=== PATIENT | male | born 1955 | race Caucasian/White ===

== ENCOUNTER 2021-02-19 11:37 | Inpatient (IN) | payer OTHER ==
[2021-02-19 12:39] LABS: Absolute Lymphocytes (CBC) 0.6 K/uL (0.7-4.9); Basophils % 0.8 % (0-1.3); Hematocrit 41.2 % (39.6-49.0); Lymphocytes % 7.3 % (15.3-44.8); MPV 7.7 fL (7.6-11.3); RBC Red Blood Cell Count 4.13 M/uL (4.33-5.43)
[2021-02-19] MEDS ORDERED: ALBUTEROL 2.5 MG/3 ML NEB SOL ONE (12:46)
[2021-02-19] MEDS ORDERED: METHYLPREDNISOLONE 125 MG INJ ONE (12:46)
[2021-02-19] MEDS ORDERED: IPRATROPIUM BROM 0.5MG/2.5ML ONE (12:47)
[2021-02-19 12:48] LABS: Protime INR 3.16
--- NOTE | 2021-02-19 12:49 | RAD REPORT ---
EXAM DESCRIPTION: RAD - Chest Single View - 02/19/2021 12:20 pm CLINICAL HISTORY: SOB COMPARISON: No comparisons FINDINGS: Large right-sided pneumothorax. The left lung is clear. Suspected background of emphysema. The heart size is normal. Remote appearing right-sided rib fractures. Visualized upper abdomen is un remarkable. IMPRESSION: Large right-sided pneumothorax. Discussed with Dr. Hill by Dr. Quintanilla at 1245 on 02/19/21
[2021-02-19 12:55] LABS: ALT/SGPT 29 U/L (12-78); AST/SGOT 34 U/L (15-37); Albumin 3.5 g/dL (3.4-5.0); Alkaline Phosphatase 123 U/L (45-117); BUN Blood Urea Nitrogen 9 mg/dL (7-18); Bicarbonate 28 mmol/L (21-32); Bilirubin Direct 0.2 mg/dL (0-0.2); Bilirubin Total 0.7 mg/dL (0.2-1.0); Glucose Level 107 mg/dL (74-106); Magnesium 2.1 mg/dL (1.8-2.4); NT PRO-BNP 250 pg/mL (<125); Potassium 4.3 mmol/L (3.5-5.1); Protein, Total 7.6 g/dL (6.4-8.2); Sodium Level 141 mmol/L (136-145); Troponin (Emerg Dept Use Only) < 0.02 ng/mL (0.0-0.045)
[2021-02-19] MEDS ORDERED: LIDOCAINE 1% MPF 30 ML VIAL ONE (13:58)
[2021-02-19] MEDS ORDERED: VITAMIN K (ADULT) 10 MG/ML ONE (14:25)
--- NOTE | 2021-02-19 14:33 | RAD REPORT ---
EXAM DESCRIPTION: RAD - Chest Single View - 02/19/2021 2:20 pm CLINICAL HISTORY: POST CHEST TUBE COMPARISON: February 19 TECHNIQUE: AP portable chest image was obtained 02/19/2021 2:20 pm . FINDINGS: Chest tube has been placed on the right. Two in tears sixth inner costal space with the ti p directed to the medial lung base. Right hemithorax lung volume is low. The pneumothorax is not identifiable. A small or anterior pneumo thorax could be occult on a portable examination. No new or progressive lung parenchymal process. Cardiomediastinal silhouette is stable. Pulmonary vas culature within normal limits. No measurable pleural fluid collection. IMPRESSION: Placement of a right-sided chest tube as detailed. Pneumothorax is not identifiable. Remnant anterior pneumothorax can be occult on portable imaging.
--- NOTE | 2021-02-19 15:51 | CON ---
Date of Consultation: 02/19/2021 Reason For Service: Stat consult for a right pneumothorax. History Of Present Illness: This is the case of a 66-year-old patient, who comes to us with shortnes s of breath and found to have about 80% pneumothorax. Surgical consult was immediately called. See procedure note for chest tube placement. The patient does not remember any prior episode. He stoppe d smoking about 3 years ago. No trauma. No recent cough, any recent traveling out of the country. Past Medical History: DVTs. He has peripheral vascular disease. Past Surgical History: He mentioned about the bilateral femoral surgery and is not sure exactly why and also could be carotid. Medications: Reviewed include Coumadin for bilateral lower extremity DVTs. Family History: Noncontributory. Review of Systems: See H and P, otherwise ten points otherwise unremarkable. Physical Examination: General: The patient is awake, alert. HEENT: Pupils anicteric. Neck: Supple. Chest: Diminished breath sounds on the right side. Abdomen: Soft and depressible. No rebound. Extremities: Good capillary refill. No calf tenderness. Laboratory Data: Blood work reviewed including an INR of 3.6. Chest x-ray reviewed including a larg e pneumothorax on the right side. Assessment: A 66-year-old patient with symptomatic right pneumothorax. We have the issue of the inc reased INR, but at this time, this pneumothorax is emergent, so we have the assistance of the OR team who were kindly enough to provide us with personnel to do this in a controlled setting, but emergent . The benefits, alternatives, and risks of a chest tube placement were fully explained to the patien t, which include, but not limited to infection, bleeding, damage to adjacent structures, anesthesia c omplication, empyema, hemothorax, NE, and even . He also understands this may not relieve any s ymptoms. He might need more than one surgical intervention. He understood, signed a consent. Procedure: Placement of a chest tube. Under aseptic condition after time-out, using lidocaine visco us for local anesthetic, we proceeded to localize the area between the fourth and fifth intercostal s pace. An incision was made in that area under aseptic condition. Incision was carried down to inter costal space and just above the rib. We proceeded to enter the lung my finger make sure t here was no entrapment and then after that, placed a chest tube on the area. Excellent flow coming o ut. No blood. The chest tube was secured in place with a 3-0 nylon and Vaseline gauze around the ar ea and normal gauze with tape. At the end of the case, there is no air leak seen, excellent tunnelin g. The patient tolerated the procedure well. A chest x-ray was ordered stat showing an improvement of his lung. Plan: The patient will remain in the service of the primary doctor. Obtain a chest x-ray tomorrow m orning again. RAJ/ALEJANDRO Voice ID: [id number] Report ID: [id number]
[2021-02-19] MEDS ORDERED: NA CHLORIDE 0.9% 250 ML ONE (16:01)
[2021-02-19] MEDS ORDERED: ONDANSETRON 4 MG/2 ML VIAL IV PRN (16:05)
[2021-02-19] MEDS ORDERED: MORPHINE 4 MG/ML SYR IV PRN (16:05)
[2021-02-19] MEDS ORDERED: ACETAMINOPHEN 500 MG TAB PO PRN (16:05)
--- NOTE | 2021-02-19 16:12 | P.HP ---
Certification for Inpatient Patient admitted to: Observation With expected LOS: <2 Midnights Patient will require the following post-hospital care: None Practitioner: I am a practitioner with admitting privileges, knowledge of patient current condition, hospital course, and medical plan of care. Services: Services provided to patient in accordance with Admission requirements found in Title 42 Section 412.3 of the Code of Federal Regulations Patient History Date of Service: 02/19/21 Reason for admission: SPONTANEOUS PTX History of Present Illness: Patient is a 66-year-old gentleman who presents to the emergency room with right-sided spontaneous pneumothorax. Patient did not fall and did not have any coughing episodes. Patient started having pain and came to the emergency room and was found have a right-sided pneumothorax. Chest tube was placed in the emergency room. Patient's right leg is reinflated. Patient will be admitted for further evaluation. Allergies No Known Allergies Allergy (Unverified 02/19/21 20:52) Home Medications: Aspirin [Aspirin EC 81 MG] 81 mg PO DAILY 02/20/21 Atorvastatin Calcium [Lipitor] 40 mg PO DAILY 02/20/21 Cyclobenzaprine [Flexeril*] 10 mg PO DAILYPRN PRN 02/20/21 Folic Acid 2,400 mcg PO DAILY 02/20/21 Levothyroxine [Synthroid*] 125 mcg PO DAILY 02/20/21 Methotrexate [Methotrexate*] 15 mg PO EVERY 7TH DAY 02/20/21 Metoprolol Tartrate [Lopressor*] 50 mg PO BID 02/20/21 Warfarin Sodium [Coumadin*] 2.5 mg PO Q48H 02/20/21 Warfarin Sodium [Coumadin*] 5 mg PO Q48H 02/20/21 predniSONE [Prednisone*] 7.5 mg PO DAILY 02/20/21 sulfaSALAzine [Sulfasalazine] 500 mg PO DAILY 02/20/21 - Past Medical/Surgical History -: COPD Past Surgical History: Patient denies surgical history - Family History Father Family History: Reviewed- Non-Contributory - Social History Smoking Status: Former smoker Smoking therapy provided: No Alcohol use: No CD- Drugs: No Review of Systems 10-point ROS is otherwise unremarkable Physical Examination - Vital Signs Temperature: 98.9 F Blood Pressure: 110/70 Pulse: 99 Respirations: 24 Pulse Ox (%): 89 - Physical Exam General: Alert, In no apparent distress, Oriented x3 HEENT: Atraumatic, PERRLA, Mucous membr. moist/pink, EOMI, Sclerae nonicteric Neck: Supple, 2+ carotid pulse no bruit, No LAD, Without JVD or thyroid abnormality Respiratory: Diminished, Other (Chest tube placement to the right) Cardiovascular: Regular rate/rhythm, Normal S1 S2 Gastrointestinal: Normal bowel sounds, Soft and benign, Non-distended, No tenderness Musculoskeletal: No tenderness Integumentary: No rashes Neurological: Normal gait, Normal speech, Normal strength at 5/5 x4 extr, Normal tone, Normal affect Lymphatics: No axilla or inguinal lymphadenopathy - Studies Laboratory Data (last 24 hrs) 02/19/21 12:15: PT 36.8 H, INR 3.16 02/19/21 12:15: WBC 7.60, Hgb 13.9, Hct 41.2, Plt Count 230 02/19/21 12:15: Sodium 141, Potassium 4.3, BUN 9, Creatinine 0.87, Glucose 107 H, Magnesium 2.1, Total Bilirubin 0.7, AST 34, ALT 29, Alkaline Phosphatase 123 H Assessment & Plan - Problems (Diagnosis) (1) Spontaneous pneumothorax Current Visit: Yes Status: Acute (2) COPD (chronic obstructive pulmonary disease) Current Visit: Yes Status: Acute - Plan Plan: 1. Chest tube management per surgery 2. Pain control 3. Nebs as needed 4. Steroids 5. Repeat chest x-ray 6. GI and DVT prophylaxis Discharge Plan: Home Plan to discharge in: Greater than 2 days - Advance Directives Does patient have a Living Will: No Does patient have a Durable POA for Healthcare: No - Code Status/Comfort Care Code Status Assessed: Yes Code Status: Full Code Critical Care: No Time Spent Managing PTS Care (In Minutes): 45
--- NOTE | 2021-02-19 16:38 | ER ---
Nurse's Notes [facility] Name: Raul Wilson Age: 66 yrs Sex: Male : 1955 Arrival Date: 02/19/2021 Time: 11:44 Bed 4 Private MD: Diagnosis: Primary spontaneous pneumothorax-right Presentation: 02/19 11:53 Chief complaint: Patient states: SOB on exertion, cough with blood x 3 days ago. O2 sat aa5 93% RA at rest and transferring from wheelchair to bed it was 87% RA. Pt reports intermittent back pain, pt states "last time I felt like this I had Pneumonia". 11:53 Coronavirus screen: cough unrelated to allergies, shortness of breath. Ebola Screen: No aa5 symptoms or risks identified at this time. Initial Sepsis Screen: Does the patient meet any 2 criteria? RR > 20 per min. Does the patient have a suspected source of infection? Yes: Productive cough/pneumonia. Risk Assessment: Do you want to hurt yourself or someone else? Patient reports no desire to harm self or others. Onset of symptoms was February 2021. 11:53 Method Of Arrival: Wheelchair aa5 11:53 Acuity: SAMMI 2 aa5 Historical: - Allergies: 11:58 No Known Allergies; aa5 - PMHx: 11:58 COPD; Hypertensive disorder; RA; thyroid problem; Hypercholesterolemia; DVT to alma delia legs;aa5 - PSHx: 11:58 Neck; aa5 - Immunization history:: Client reports receiving the 2nd dose of the Covid vaccine. - Social history:: Smoking status: Patient/guardian denies using tobacco, the patient reports quitting approximately 3 years ago. Screenin:00 Abuse screen: Denies threats or abuse. Denies injuries from another. Nutritional jl7 screening: No deficits noted. Tuberculosis screening: No symptoms or risk factors identified. Fall Risk IV access (20 points). Total Mir Fall Scale indicates No Risk (0-24 pts). Assessment: 12:00 General: Appears in no apparent distress. uncomfortable, Behavior is calm, cooperative, jl7 appropriate for age. Pain: Denies pain. Neuro: Level of Consciousness is awake, alert, obeys commands, Oriented to person, place, time, situation. Cardiovascular: Heart tones present Patient's skin is warm and dry. Rhythm is regular. Respiratory: Airway is patent Respiratory effort is even, labored, Respiratory pattern is symmetrical, tachypnea Breath sounds are diminished bilaterally. Derm: Skin is pink, warm \\T\\ dry. 13:05 Reassessment: Dr. Schulte at bedside discussing results and POC, pt verbalizes kenneth understanding. 13:10 Reassessment: Pt moved from ER bed 6 to ER bed 4 for chest tube placement by Dr. kenneth Schulte. 14:00 Reassessment: Chest tube placed, pt reports immediate relief. jl7 20:01 Reassessment: Patient and/or family updated on plan of care and expected duration. Pain ea level reassessed. Patient is alert, oriented x 3, equal unlabored respirations, skin warm/dry/pink. Report given to receiving nurse on second floor. 20:24 Reassessment: Patient and/or family updated on plan of care and expected duration. Pain ea level reassessed. Patient is alert, oriented x 3, equal unlabored respirations, skin warm/dry/pink. Pt left ED via stretcher per opto mechanical technician. Pt tolerating well. Vital Signs: 11:57 BP 158 / 96; Pulse 83; Resp 24 S; Temp 98.5(O); Pulse Ox 90% on R/A; Weight 83.91 kg aa5 (R); Height 6 ft. 0 in. (182.88 cm) (R); 12:03 BP 125 / 87; Pulse 82; Resp 19; Pulse Ox 87% on R/A; jl7 12:03 Pulse Ox 91% on 3 lpm NC; jl7 13:00 BP 141 / 90; Pulse 93; Resp 19; Pulse Ox 91% on 3 lpm NC; jl7 13:45 BP 167 / 92; Pulse 90; Resp 21; Pulse Ox 94% on 3 lpm NC; jl7 14:32 BP 134 / 80; Pulse 84; Resp 19; Pulse Ox 90% on R/A; jl7 19:42 BP 136 / 88; Pulse 80; Resp 16; Pulse Ox 92% on 3 lpm NC; ea 20:01 BP 140 / 87; Pulse 81; Resp 16; Temp 98.6; Pulse Ox 93% on 3 lpm NC; ea 11:57 Body Mass Index 25.09 (83.91 kg, 182.88 cm) aa5 ED Course: 11:44 Patient arrived in ED. am2 11:54 Arm band placed on Patient placed in an exam room, on a stretcher. aa5 11:58 Cristian Mcmahan, ALMA is Primary Nurse. jl7 11:58 Triage completed. aa5 11:58 Delfino Hill MD is Attending Physician. kdr 12:00 Patient has correct armband on for positive identification. Placed in gown. Bed in low jl7 position. Call light in reach. Side rails up X 1. equipment monitor phototypesetting on. Pulse ox on. NIBP on. 12:20 XRAY Chest (1 view) In Process Unspecified. EDMS 12:22 Initial lab(s) drawn, by wa, sent to lab. Inserted saline lock: 20 gauge in right jl7 forearm, using aseptic technique. Blood collected. 13:20 T\\T\\S collected, blood band applied to patient. jl7 13:45 Assist provider with chest tube insertion with 26 Fr. in right lateral chest wall. Tray jl7 was set up. Attached to [employer]-vac. Chest tube inserted by Alden Schulte MD Placement verified by CXR, Dressed with Vaseline gauze, silk tape, 4X4s, Patient tolerated well. 14:20 XRAY Chest (1 view) In Process Unspecified. EDMS 16:37 Sunny Evans MD is Hospitalizing Provider. kdr 19:41 Patient admitted, IV remains in place. ea Administered Medications: 12:20 Drug: Albuterol - atroVENT (ipratropium) (3:1) (2.5 mg - 0.5 mg) 3 ml Route: Nebulizer; jl7 12:45 Follow up: Response: No adverse reaction jl7 12:20 Drug: SOLU-Medrol (methylPrednisoLONE) 125 mg Route: IVP; Site: right forearm; jl7 12:45 Follow up: Response: No adverse reaction jl7 14:11 Drug: Vitamin K1 (phytonadione) 10 mg Route: IM; Site: left deltoid; jl7 15:23 Follow up: Response: No adverse reaction jl7 Medication: 16:05 Blood products: FFP X 1 unit given. jl7 Outcome: 16:38 Decision to Hospitalize by Provider. kdr 19:41 Condition: stable ea 19:41 Discharge instructions given to patient, Instructed on the need for admit. 20:00 Admitted to Med/surg accompanied by tech, room 228, with oxygen, with chart, Report ea called to receiving nurse on fourth floor 20:24 Patient left the ED. ea Signatures: Dispatcher [employer] EDMS Delfino Hill MD MD kdr Calderon, Audri, RN RN cam5 Cristian Mcmahan, RN RN jl7 Jesi Humphries am2 Ayse Lim RN RN joy
--- NOTE | 2021-02-19 16:39 | EDPHYS ---
Physician Documentation [facility] Name: Raul Wilson Age: 66 yrs Sex: Male : 1955 Arrival Date: 02/19/2021 Time: 11:44 Bed 4 Private MD: ED Physician Delfino Hill HPI: 02/19 18:15 This 66 yrs old Male presents to ER via Wheelchair with complaints of kdr Breathing Difficulty. 18:15 The patient has shortness of breath at rest, with light activity. Onset: The kdr symptoms/episode began/occurred gradually, 3 day(s) ago. Duration: The symptoms are continuous, and are steadily getting worse. The patient's shortness of breath is aggravated by coughing, exertion, light activity. Associated signs and symptoms: The patient has no apparent associated signs or symptoms. Severity of symptoms: At their worst the symptoms were mild moderate just prior to arrival, in the emergency department the symptoms are unchanged. The patient has not experienced similar symptoms in the past. The patient has not recently seen a physician. Historical: - Allergies: 11:58 No Known Allergies; aa5 - PMHx: 11:58 COPD; Hypertensive disorder; RA; thyroid problem; Hypercholesterolemia; DVT to alma delia legs;aa5 - PSHx: 11:58 Neck; aa5 - Immunization history:: Client reports receiving the 2nd dose of the Covid vaccine. - Social history:: Smoking status: Patient/guardian denies using tobacco, the patient reports quitting approximately 3 years ago. ROS: 18:15 Constitutional: Negative for fever, chills, and weight loss, Eyes: Negative for injury, kdr pain, redness, and discharge, Neck: Negative for injury, pain, and swelling, Cardiovascular: Negative for chest pain, palpitations, and edema, Abdomen/GI: Negative for abdominal pain, nausea, vomiting, diarrhea, and constipation, Back: Negative for injury and pain, : Negative for injury, bleeding, discharge, and swelling, MS/Extremity: Negative for injury and deformity, Skin: Negative for injury, rash, and discoloration, Neuro: Negative for headache, weakness, numbness, tingling, and seizure activity. Psych: Negative for depression, anxiety, suicide ideation, homicidal ideation, and hallucinations, Allergy/Immunology: Negative for hives, rash, and allergies, Endocrine: Negative for neck swelling, polydipsia, polyuria, polyphagia, and marked weight changes, Hematologic/Lymphatic: Negative for swollen nodes, abnormal bleeding, and unusual bruising. 18:15 Respiratory: Positive for cough, dyspnea on exertion, shortness of breath, Negative for hemoptysis, orthopnea, pleurisy, sputum production. Exam: 17:39 ECG was reviewed by the Attending Physician. kdr 18:15 Constitutional: This is a well developed, well nourished patient who is awake, alert, kdr and in no acute distress. Head/Face: Normocephalic, atraumatic. Eyes: Pupils equal round and reactive to light, extra-ocular motions intact. Lids and lashes normal. Conjunctiva and sclera are non-icteric and not injected. Cornea within normal limits. Periorbital areas with no swelling, redness, or edema. Neck: Trachea midline, no thyromegaly or masses palpated, and no cervical lymphadenopathy. Supple, full range of motion without nuchal rigidity, or vertebral point tenderness. No Meningismus. Chest/axilla: Normal chest wall appearance and motion. Nontender with no deformity. No lesions are appreciated. Cardiovascular: Regular rate and rhythm with a normal S1 and S2. No gallops, murmurs, or rubs. Normal PMI, no JVD. No pulse deficits. Abdomen/GI: Soft, non-tender, with normal bowel sounds. No distension or tympany. No guarding or rebound. No evidence of tenderness throughout. Back: No spinal tenderness. No costovertebral tenderness. Full range of motion. Skin: Warm, dry with normal turgor. Normal color with no rashes, no lesions, and no evidence of cellulitis. MS/ Extremity: Pulses equal, no cyanosis. Neurovascular intact. Full, normal range of motion. Neuro: Awake and alert, GCS 15, oriented to person, place, time, and situation. Cranial nerves II-XII grossly intact. Motor strength 5/5 in all extremities. Sensory grossly intact. Cerebellar exam normal. Normal gait. Psych: Awake, alert, with orientation to person, place and time. Behavior, mood, and affect are within normal limits. 18:15 Respiratory: the patient does not display signs of respiratory distress, Respirations: normal, Breath sounds: decreased breath sounds, that are mild, are heard in the right posterior upper lobe, right posterior middle lobe and right posterior lower lobe. Vital Signs: 11:57 BP 158 / 96; Pulse 83; Resp 24 S; Temp 98.5(O); Pulse Ox 90% on R/A; Weight 83.91 kg aa5 (R); Height 6 ft. 0 in. (182.88 cm) (R); 12:03 BP 125 / 87; Pulse 82; Resp 19; Pulse Ox 87% on R/A; jl7 12:03 Pulse Ox 91% on 3 lpm NC; jl7 13:00 BP 141 / 90; Pulse 93; Resp 19; Pulse Ox 91% on 3 lpm NC; jl7 13:45 BP 167 / 92; Pulse 90; Resp 21; Pulse Ox 94% on 3 lpm NC; jl7 14:32 BP 134 / 80; Pulse 84; Resp 19; Pulse Ox 90% on R/A; jl7 19:42 BP 136 / 88; Pulse 80; Resp 16; Pulse Ox 92% on 3 lpm NC; ea 20:01 BP 140 / 87; Pulse 81; Resp 16; Temp 98.6; Pulse Ox 93% on 3 lpm NC; ea 11:57 Body Mass Index 25.09 (83.91 kg, 182.88 cm) aa5 MDM: 16:38 Patient medically screened. kdr 18:15 Data reviewed: vital signs, nurses notes, lab test result(s), radiologic studies. kdr Counseling: I had a detailed discussion with the patient and/or guardian regarding: the historical points, exam findings, and any diagnostic results supporting the discharge/admit diagnosis, lab results, radiology results, the need for further work-up and treatment in the hospital. Physician consultation: Alden Schulte MD regarding consult, patient's condition, need to come to ED to see patient, and will see patient in ED, immediately. Special discussion: Based on the patient's history, exam, and Dx evaluation, there is no indication for emergent intervention or inpatient Tx. It is understood by the patient/guardian that if the Sx's persist or worsen they need to return immediately for re-evaluation. 02/19 12:01 Order name: Basic Metabolic Panel; Complete Time: 07: kdr 02/19 12:01 Order name: CBC with Diff; Complete Time: : kdr 02/19 12:01 Order name: LFT's; Complete Time: :28 [facility] 02/19 12:01 Order name: Magnesium; Complete Time: 07: [facility] 02/19 12:01 Order name: NT PRO-BNP; Complete Time: 07: [facility] 02/19 12:01 Order name: PT-INR; Complete Time: 07: [facility] 02/19 12:01 Order name: Troponin (emerg Dept Use Only); Complete Time: 07:28 [facility] 02/19 13:04 Order name: Type And Screen [facility] 02/19 13:18 Order name: Fresh Frozen Plasma [facility] 02/19 14:28 Order name: ABO/RH no charge; Complete Time: 07:28 [facility] 02/19 16:10 Order name: Comprehensive Metabolic Panel [facility] 02/19 16:10 Order name: Comprehensive Metabolic Panel; Complete Time: 07: [facility] 02/19 16:10 Order name: Protime (+INR) [facility] 02/19 12:01 Order name: XRAY Chest (1 view); Complete Time: 07: [facility] 02/19 12:01 Order name: EKG; Complete Time: 12:02 [facility] 02/19 12:01 Order name: Cardiac monitoring; Complete Time: 12:22 [facility] 02/19 12:01 Order name: EKG - Nurse/Tech; Complete Time: 15:23 [facility] 02/19 13:51 Order name: XRAY Chest (1 view); Complete Time: 07:28 [facility] 02/19 16:10 Order name: CONS Physician Consult [facility] 02/19 16:10 Order name: Heart Healthy [facility] 02/19 16:10 Order name: Protime (+INR); Complete Time: 07:28 [facility] 02/19 16:10 Order name: PTT, Activated Partial Thromb [facility] 02/19 16:10 Order name: PTT, Activated Partial Thromb; Complete Time: 07:28 [facility] 02/19 18:33 Order name: COVID-19 : Document "Date of Symptom Onset" if Symptomatic. [facility] 02/19 19:22 Order name: CORONAVIRUS [facility] 02/19 12:01 Order name: IV Saline Lock; Complete Time: 12:22 [facility] 02/19 12:01 Order name: Labs collected and sent; Complete Time: 12:22 [facility] 02/19 12:01 Order name: O2 Per Protocol; Complete Time: 12:22 [facility] 02/19 12:01 Order name: O2 Sat Monitoring; Complete Time: 12:22 kdr EC:39 Rate is 85 beats/min. Rhythm is regular, Sinus Rhythm with No ectopy. QRS [place] is kdr Normal. ND interval is normal. QRS interval is normal. QT interval is normal. Clinical impression: NSR w/ Non-specific ST/T Changes. Administered Medications: 12:20 Drug: Albuterol - atroVENT (ipratropium) (3:1) (2.5 mg - 0.5 mg) 3 ml Route: Nebulizer; jl7 12:45 Follow up: Response: No adverse reaction jl7 12:20 Drug: SOLU-Medrol (methylPrednisoLONE) 125 mg Route: IVP; Site: right forearm; jl7 12:45 Follow up: Response: No adverse reaction jl7 14:11 Drug: Vitamin K1 (phytonadione) 10 mg Route: IM; Site: left deltoid; jl7 15:23 Follow up: Response: No adverse reaction jl7 Disposition Summary: 02/19/21 16:38 Hospitalization Ordered Hospitalization Status: Inpatient Admission kdr Provider: Sunny Evans Location: Telemetry/MedSurg (Inpatient) kdr Condition: Fair kdr Problem: new kdr Symptoms: have improved kdr Bed/Room Type: Standard [facility] Room Assignment: 228(02/19/21 19:40) kl Diagnosis - Primary spontaneous pneumothorax - right kdr Forms: - Medication Reconciliation Form kdr - SBAR form kdr Signatures: Dispatcher [employer] Aishwarya Faulkner RN RN kl Rittger, Kevin, MD MD kdr Calderon, Audri, RN RN aa5 Cristian Mcmahan RN RN jl7 Corrections: (The following items were deleted from the chart) 19:40 16:38 kdr kl
[2021-02-19] MEDS: ALBUTEROL 2.5 MG/3 ML NEB SOL NEB SCH (20:00)
[2021-02-19] MEDS: IPRATROPIUM BROM 0.5MG/2.5ML NEB SCH (20:00)
[2021-02-19] MEDS: NA CHLORIDE 0.9% 1,000 ML IV SCH (21:02)
[2021-02-19] MEDS: ENOXAPARIN 40 MG/0.4 ML SQ SCH (21:09)
[2021-02-19] MEDS: CEFTRIAXONE/SWI 1gm 1 GM/10 ML SYR IVP SCH (23:01)
[2021-02-19 23:13] VITALS: BMI 25.4
[2021-02-20] MEDS: ALBUTEROL 2.5 MG/3 ML NEB SOL NEB SCH ×4 (02:30→20:10)
[2021-02-20] MEDS: IPRATROPIUM BROM 0.5MG/2.5ML NEB SCH ×4 (02:30→20:10)
[2021-02-20 06:06] LABS: Absolute Lymphocytes (CBC) 0.5 K/uL (0.7-4.9); Basophils % 0.4 % (0-1.3); Hematocrit 38.3 % (39.6-49.0); Lymphocytes % 5.1 % (15.3-44.8); MPV 7.3 fL (7.6-11.3); RBC Red Blood Cell Count 3.77 M/uL (4.33-5.43)
[2021-02-20 06:21] LABS: Protime INR 1.61
[2021-02-20 06:24] LABS: ALT/SGPT 27 U/L (12-78); AST/SGOT 50 U/L (15-37); Albumin 3.1 g/dL (3.4-5.0); Alkaline Phosphatase 106 U/L (45-117); BUN Blood Urea Nitrogen 9 mg/dL (7-18); Bicarbonate 27 mmol/L (21-32); Bilirubin Total 0.7 mg/dL (0.2-1.0); Glucose Level 115 mg/dL (74-106); Potassium 3.9 mmol/L (3.5-5.1); Protein, Total 6.9 g/dL (6.4-8.2); Sodium Level 141 mmol/L (136-145)
--- NOTE | 2021-02-20 07:15 | RAD REPORT ---
EXAM DESCRIPTION: RAD - Chest Single View - 02/20/2021 5:43 am CLINICAL HISTORY: PTX COMPARISON: Chest Single View dated 02/19/2021; Chest Single View dated 02/19/2021 FINDINGS: No evidence of edema or pneumonia. The heart size is within normal limits.No acute osseous abnormality. Right-sided chest tube in place. No appreciable pneumothorax. Emphysematous changes. Re mote rib fractures. IMPRESSION: Right-sided chest tube in place without appreciable residual pneumothorax. No acute proc ess otherwise identified.
[2021-02-20 08:19] LABS: Blood Morphology Comment NOT SEEN (NOT SEEN); Platelet Estimate ADEQ; White Blood Cell Scan OK (OK)
[2021-02-20] MEDS ORDERED: PNEUMOCOCCAL VACCINE 0.5 ML IMVAC ONE (09:00)
[2021-02-20] MEDS: CEFTRIAXONE/SWI 1gm 1 GM/10 ML SYR IVP SCH ×2 (09:11→20:15)
[2021-02-20] MEDS: NA CHLORIDE 0.9% 1,000 ML IV SCH ×2 (09:11→20:15)
[2021-02-20] MEDS: ENOXAPARIN 40 MG/0.4 ML SQ SCH (09:11)
--- NOTE | 2021-02-20 11:45 | EKG ---
Test Date: 2021-02-19 Test Time: 14:18:51 Ruffling Hemmer Automatic: MALIHA MEASUREMENT RESULTS: Intervals: Rate: 85 IL: 144 QRSD: 76 QT: 380 QTc: 452 [place]: P: 60 IL: 144 QRS: 37 T: 49 INTERPRETIVE STATEMENTS: Normal sinus rhythm Possible Left atrial enlargement Nonspecific ST abnormality Abnormal ECG No previous ECG available for comparison Electronically Signed On 02-20-21 11:42:18 CDT by Gabe Rodriguez
--- NOTE | 2021-02-20 16:01 | PN ---
Date of Progress Note: 02/20/2021 Diagnosis: Spontaneous pneumothorax, status post chest tube placement. Subjective: The patient is doing well. No complaint. No nausea, no vomiting. No shortness of octavio th. No chest pain. Ten points otherwise unremarkable. Objective: Chest: Clear bilateral breath sounds. Chest tube intact. Good , no air leak. Minimal drainage. Drainage clear. Abdomen: Soft and depressible. Laboratory Data: The chest x-ray shows no residual pneumothorax. Plan: Chest tube to water seal and the next day or 2, we may remove the chest tube dependence what t he x-ray shows. I will be out of town for the next 2 days. [facility] [place] [facility] [place] [facility] [place] care of his case and he agreed with that. MARLON Voice ID: [id number] Report ID: [id number]
[2021-02-20] MEDS ORDERED: HYDROCODONE/APAP 5/325 MG TAB PO ONE (21:27)
[2021-02-21] MEDS: IPRATROPIUM BROM 0.5MG/2.5ML NEB SCH ×4 (02:00→20:20)
[2021-02-21] MEDS: ALBUTEROL 2.5 MG/3 ML NEB SOL NEB SCH ×4 (02:16→20:20)
--- NOTE | 2021-02-21 03:05 | P.PN ---
Subjective Date of Service: 02/20/21 Subjective: No new changes, No C/O voiced, Improving Patient states he is feeling much better. Review of Systems 10-point ROS is otherwise unremarkable Physical Examination - Vital Signs Temperature: 98.9 F Blood Pressure: 110/70 Pulse: 99 Respirations: 24 Pulse Ox (%): 89 - Physical Exam General: Alert, In no apparent distress, Oriented x3 HEENT: Atraumatic, PERRLA, EOMI Neck: Supple, JVD not distended Respiratory: Diminished (Chest tube in place to the right side) Cardiovascular: Regular rate/rhythm, Normal S1 S2, No murmurs Gastrointestinal: Normal bowel sounds, Soft and benign, Non-distended, No tenderness Musculoskeletal: No clubbing, No swelling, No tenderness Neurological: Normal tone, Sensation intact, Cranial nerves 3-12 intact - Studies Medications List Reviewed: Yes Assessment & Plan - Problems (Diagnosis) (1) Spontaneous pneumothorax Current Visit: Yes Status: Acute (2) COPD (chronic obstructive pulmonary disease) Current Visit: Yes Status: Acute - Plan Plan: Continue with plan of care as mentioned below: 1. Chest tube management per surgery; placed on water seal 2. Pain control 3. Nebs as needed 4. Steroids 5. Repeat chest x-ray in the morning 6. GI and DVT prophylaxis Discharge Plan: Home Plan to discharge in: Greater than 2 days - Advance Directives Does patient have a Living Will: No Does patient have a Durable POA for Healthcare: No - Code Status/Comfort Care Code Status: Full Code Critical Care: No Time Spent Managing PTS Care (In Minutes): 35
[2021-02-21] MEDS ORDERED: CYCLOBENZAPRINE 10 MG TAB PO PRN (03:07)
[2021-02-21] MEDS: METHYLPREDNISOLONE 125 MG INJ IV SCH ×3 (03:35→12:00)
[2021-02-21 05:55] LABS: Absolute Lymphocytes (CBC) 0.4 K/uL (0.7-4.9); Basophils % 0.7 % (0-1.3); Hematocrit 35.9 % (39.6-49.0); Lymphocytes % 7.4 % (15.3-44.8); MPV 7.4 fL (7.6-11.3); RBC Red Blood Cell Count 3.51 M/uL (4.33-5.43)
[2021-02-21 05:59] LABS: Protime INR 1.09
--- NOTE | 2021-02-21 06:11 | P.PN ---
Subjective Date of Service: 02/21/21 Chief Complaint: SPONTANEOUS PTX Subjective: Improving, Doing well Physical Examination - Vital Signs Temperature: 98.9 F Blood Pressure: 110/70 Pulse: 99 Respirations: 24 Pulse Ox (%): 89 - Studies Medications List Reviewed: Yes Assessment & Plan Discharge Plan: Home Plan to discharge in: 24 Hours Physician Review Additional Text: Physical exam: General: Alert, In no apparent distress, Oriented x3 HEENT: Atraumatic, PERRLA, EOMI Neck: Supple, JVD not distended Respiratory: Diminished (Chest tube in place to the right side) Cardiovascular: Regular rate/rhythm, Normal S1 S2, No murmurs Gastrointestinal: Normal bowel sounds, Soft and benign, Non-distended, No tenderness Musculoskeletal: No clubbing, No swelling, No tenderness Neurological: Normal tone, Sensation intact, Cranial nerves 3-12 intact Impression: Spontaneous pneumothorax right side COPD Hypertension Hyperlipidemia Atrial fibrillation on chronic anticoagulation therapyCoumadin Plan: Continue with plan of care as mentioned below: 1. Chest tube management per surgery; placed on water seal. Spoke with surgery. Surgery plans to continue to monitor overnight. If doing well chest tube will be removed and likely home tomorrow. 2. Pain control 3. Nebs as needed 4. Continue with home medications for COPD, hypertension, hyperlipidemia. Will discuss with surgery to see when Coumadin can be restarted. Surgery reports to hold Coumadin for now. 5. Repeat chest x-ray in the morning 6. GI and DVT prophylaxis DVT prophylaxis: Lovenox CODE STATUS: Full code Advance care [id number] minutes: Home at discharge Time Spent Managing Pts Care (In Minutes): 55
[2021-02-21 06:13] LABS: BUN Blood Urea Nitrogen 7 mg/dL (7-18); Bicarbonate 27 mmol/L (21-32); Glucose Level 90 mg/dL (74-106); Potassium 3.6 mmol/L (3.5-5.1); Sodium Level 142 mmol/L (136-145)
--- NOTE | 2021-02-21 06:31 | RAD REPORT ---
EXAM DESCRIPTION: RAD - Chest Single View - 02/20/2021 10:37 pm CLINICAL HISTORY: verify chest tube placement COMPARISON: Chest Single View dated 02/20/2021; Chest Single View dated 02/19/2021; Chest Single View dated 02/19/2021 FINDINGS: Right-sided chest tube in similar position. No appreciable pneumothorax identified. Aerati on of lung is unchanged. Heart size is similar. Chronic lung changes noted. No fractures are identifi ed. Remote right-sided rib fractures. IMPRESSION: Right-sided chest tube in similar position without appreciable pneumothorax. Chronic penny g changes favor without superimposed acute process.
--- NOTE | 2021-02-21 07:00 | RAD REPORT ---
EXAM DESCRIPTION: RAD - Chest Single View - 02/21/2021 6:43 am CLINICAL HISTORY: PTX COMPARISON: Chest Single View dated 02/20/2021; Chest Single View dated 02/20/2021; Chest Single View dated 02/19/2021; Chest Single View dated 02/19/2021 FINDINGS: No evidence of edema or pneumonia. The heart size is within normal limits.No acute osseous abnormality. Chest tube in similar positioning. No appreciable pneumothorax. Remote right-sided rib fractures. IMPRESSION: Chest tube in similar position without appreciable pneumothorax. No acute process otherw ise identified.
[2021-02-21] MEDS: LEVOTHYROXINE SOD 0.125 MG TAB PO SCH (07:30)
[2021-02-21] MEDS ORDERED: METHOTREXATE 2.5 MG TAB PO SCH (09:00)
[2021-02-21] MEDS: ATORVASTATIN 40 MG TAB PO SCH (09:00)
[2021-02-21] MEDS: FOLIC ACID 1 MG TABLET PO SCH (09:00)
[2021-02-21] MEDS: METOPROLOL TAR 50 MG TAB PO SCH ×2 (09:00→20:09)
[2021-02-21] MEDS: predniSONE 5 MG TAB PO SCH (09:00)
[2021-02-21] MEDS: SULFASALAZINE 500 MG E.C. TAB PO SCH (09:00)
[2021-02-21] MEDS: ENOXAPARIN 40 MG/0.4 ML SQ SCH (11:00)
[2021-02-21] MEDS: CEFTRIAXONE/SWI 1gm 1 GM/10 ML SYR IVP SCH ×2 (11:00→20:18)
--- NOTE | 2021-02-21 11:22 | P.PN ---
Subjective Date of Service: 02/21/21 Chief Complaint: SPONTANEOUS PTX Subjective: Improving (Patient had minimal shortness of breath, but feels better now with continued o2 supplementation, no acute events) Physical Examination - Vital Signs Temperature: 98.9 F Blood Pressure: 110/70 Pulse: 99 Respirations: 24 Pulse Ox (%): 89 - Physical Exam General: Alert, In no apparent distress, Cooperative Respiratory: Clear to auscultation bilaterally, Other (RIGHT chest tube in place, no air leak on water seal, some fluid around tube dressings evident, serous in character.) Cardiovascular: Regular rate/rhythm - Studies Medications List Reviewed: Yes Assessment And Plan - Current Problems (Diagnosis) (1) Spontaneous pneumothorax Current Visit: Yes Status: Acute Plan: 66 year old man with spontanous pneumothorax s/p RIGHT chest tube placed by Dr. Schulte - I am cross covering for weekend - repeat chest x ray in AM - Will likely DC chest tube in AM - incentive spirometry - continue oxygen supplementation Physician Review Additional Text: Physical exam: General: Alert, In no apparent distress, Oriented x3 HEENT: Atraumatic, PERRLA, EOMI Neck: Supple, JVD not distended Respiratory: Diminished (Chest tube in place to the right side) Cardiovascular: Regular rate/rhythm, Normal S1 S2, No murmurs Gastrointestinal: Normal bowel sounds, Soft and benign, Non-distended, No tenderness Musculoskeletal: No clubbing, No swelling, No tenderness Neurological: Normal tone, Sensation intact, Cranial nerves 3-12 intact Impression: (1) Spontaneous pneumothorax Current Visit: Yes Status: Acute (2) COPD (chronic obstructive pulmonary disease) Current Visit: Yes Status: Acute Plan: Continue with plan of care as mentioned below: 1. Chest tube management per surgery; placed on water seal 2. Pain control 3. Nebs as needed 4. Steroids 5. Repeat chest x-ray in the morning 6. GI and DVT prophylaxis DVT prophylaxis: CODE STATUS: Advance care [id number] minutes:
[2021-02-22] MEDS: IPRATROPIUM BROM 0.5MG/2.5ML NEB SCH ×4 (01:45→19:45)
[2021-02-22] MEDS: ALBUTEROL 2.5 MG/3 ML NEB SOL NEB SCH ×4 (01:45→19:45)
[2021-02-22 05:30] LABS: Absolute Lymphocytes (CBC) 0.7 K/uL (0.7-4.9); Basophils % 0.7 % (0-1.3); Hematocrit 31.8 % (39.6-49.0); Lymphocytes % 13.7 % (15.3-44.8); MPV 7.7 fL (7.6-11.3); RBC Red Blood Cell Count 3.16 M/uL (4.33-5.43)
[2021-02-22 05:49] LABS: BUN Blood Urea Nitrogen 8 mg/dL (7-18); Bicarbonate 30 mmol/L (21-32); Glucose Level 93 mg/dL (74-106); Magnesium 2.2 mg/dL (1.8-2.4); Potassium 4.2 mmol/L (3.5-5.1); Sodium Level 142 mmol/L (136-145)
--- NOTE | 2021-02-22 06:06 | P.PN ---
Subjective Date of Service: 02/22/21 Chief Complaint: SPONTANEOUS PTX Subjective: Improving, Doing well Physical Examination - Vital Signs Temperature: 97.1 F Blood Pressure: 137/86 Pulse: 79 Respirations: 16 Pulse Ox (%): 95 - Studies Medications List Reviewed: Yes Assessment & Plan Discharge Plan: Home Plan to discharge in: 24 Hours Physician Review Additional Text: Physical exam: General: Alert, In no apparent distress, Oriented x3 HEENT: Atraumatic, PERRLA, EOMI Neck: Supple, JVD not distended Respiratory: Diminished (Chest tube in place to the right side) Cardiovascular: Regular rate/rhythm, Normal S1 S2, No murmurs Gastrointestinal: Normal bowel sounds, Soft and benign, Non-distended, No tenderness Musculoskeletal: No clubbing, No swelling, No tenderness Neurological: Normal tone, Sensation intact, Cranial nerves 3-12 intact Impression: Spontaneous pneumothorax right side COPD Hypertension Hyperlipidemia Atrial fibrillation on chronic anticoagulation therapyCoumadin Plan: Continue with plan of care as mentioned below: 1. Chest tube management per surgery. Anticipate removal of chest tube today. If stable likely home as early as today. Will discuss with surgery. 2. Pain control 3. Nebs as needed 4. Continue with home medications for COPD, hypertension, hyperlipidemia. Surgery recommended to restart Coumadin at discharge. 5. Anticipate repeat chest x-ray today after removal of chest tube. 6. Need to arrange home oxygen at discharge. DVT prophylaxis: Lovenox CODE STATUS: Full code Advance care [email or web address] minutes: Home at discharge Time Spent Managing Pts Care (In Minutes): 55
[2021-02-22] MEDS: LEVOTHYROXINE SOD 0.125 MG TAB PO SCH (07:30)
--- NOTE | 2021-02-22 07:43 | RAD REPORT ---
EXAM DESCRIPTION: RAD - Chest Single View - 02/22/2021 6:15 am CLINICAL HISTORY: PTX Chest pain. COMPARISON: Chest Single View dated 02/21/2021; Chest Single View dated 02/20/2021; Chest Single View dated 02/20/2021; Chest Single View dated 02/19/2021 FINDINGS: Portable technique limits examination quality. The lungs are emphysematous with inferiorly positioned right-sided chest tube noted, unchanged. No me asurable pneumothorax is seen. The heart is normal in size. IMPRESSION: No measurable pneumothorax is seen.
[2021-02-22] MEDS: SULFASALAZINE 500 MG E.C. TAB PO SCH (09:00)
[2021-02-22] MEDS: METOPROLOL TAR 50 MG TAB PO SCH ×2 (09:00→20:00)
[2021-02-22] MEDS: predniSONE 5 MG TAB PO SCH (09:00)
[2021-02-22] MEDS: ATORVASTATIN 40 MG TAB PO SCH (09:00)
[2021-02-22] MEDS: FOLIC ACID 1 MG TABLET PO SCH (09:00)
[2021-02-22] MEDS: ENOXAPARIN 40 MG/0.4 ML SQ SCH (09:58)
[2021-02-22] MEDS: CEFTRIAXONE/SWI 1gm 1 GM/10 ML SYR IVP SCH ×2 (09:58→20:00)
[2021-02-22 11:36] LABS: Hematocrit 37.2 % (39.6-49.0)
--- NOTE | 2021-02-22 16:41 | RAD REPORT ---
EXAM DESCRIPTION: RAD - Chest Single View - 02/22/2021 4:07 pm CLINICAL HISTORY: f/u removal of chest tube Chest pain. COMPARISON: Chest Single View dated 02/22/2021; Chest Single View dated 02/21/2021; Chest Single View dated 02/20/2021; Chest Single View dated 02/20/2021 FINDINGS: Portable technique limits examination quality. The right-sided chest tube has been removed. No measurable pneumothorax seen. Bilateral pulmonary opa cities are again noted, without significant change.
[2021-02-23] MEDS: ALBUTEROL 2.5 MG/3 ML NEB SOL NEB SCH ×2 (02:05→09:01)
[2021-02-23] MEDS: IPRATROPIUM BROM 0.5MG/2.5ML NEB SCH ×2 (02:05→09:01)
[2021-02-23 04:11] LABS: Absolute Lymphocytes (CBC) 0.7 K/uL (0.7-4.9); Basophils % 0.9 % (0-1.3); Hematocrit 34.6 % (39.6-49.0); Lymphocytes % 17.4 % (15.3-44.8); MPV 7.4 fL (7.6-11.3)
[2021-02-23 04:23] LABS: BUN Blood Urea Nitrogen 11 mg/dL (7-18); Bicarbonate 30 mmol/L (21-32); Glucose Level 85 mg/dL (74-106); Magnesium 2.2 mg/dL (1.8-2.4); Sodium Level 141 mmol/L (136-145)
--- NOTE | 2021-02-23 06:12 | P.DS ---
Admission Date: 02/19/21 Discharge Date: 02/23/21 Primary Care Provider: Dr. Melchor([place], [place]) Disposition: ROUTINE DISCHARGE Discharge Condition: GOOD Reason for Admission: SPONTANEOUS PTX Consultations: Surgery-Dr. Schulte/Dr. Rossi Pulmonary-Dr. Kay Procedures: Initial CXR: COMPARISON: No comparisons FINDINGS: Large right-sided pneumothorax. The left lung is clear. Suspected background of emphysema. The heart size is normal. Remote appearing right-sided rib fractures. Visualized upper abdomen is unremarkable. IMPRESSION: Large right-sided pneumothorax. Follow up CXR: COMPARISON: Chest Single View dated 02/22/2021; Chest Single View dated 02/21/2021; Chest Single View dated 02/20/2021; Chest Single View dated 02/20/2021 FINDINGS: Portable technique limits examination quality. The right-sided chest tube has been removed. No measurable pneumothorax seen. Bilateral pulmonary opacities are again noted, without significant change. Follow up CXR: COMPARISON: Chest Single View dated 02/22/2021; Chest Single View dated 02/22/2021; Chest Single View dated 02/21/2021; Chest Single View dated 02/20/2021 FINDINGS: No appreciable pneumothorax identified. Remote right-sided rib fractures. There is some linear scarring and/or pleural plaquing in the right upper lobe. Some irregular opacities also present in the left lung that are unchanged and likely reflect chronic scarring. No edema or consolidation. Normal heart size. No fractures are identified. IMPRESSION: No appreciable right-sided pneumothorax. No acute process in the lungs. Medical Problem List: Spontaneous pneumothorax right side status post placement and removal of chest tube, resolved COPD on chronic steroids Hypertension Hyperlipidemia Atrial fibrillation on chronic anticoagulation therapyCoumadin Brief History of Present Illness: 66-year-old male with history of COPD, atrial fibrillation on chronic anticoagulation therapy, hypothyroidism. Patient presented with right-sided spontaneous pneumothorax. Patient did not report any trauma or coughing episodes. The patient was admitted for treatment. Hospital Course: Patient presented with spontaneous right-sided pneumothorax. There was no me ntion of trauma or increased coughing episodes. Patient with history of COPD on chronic steroids. Surgery was consulted for placement of chest tube. The patient was monitored closely. The chest tube was able to be removed without any difficulty. Recheck chest x-ray shows no further pneumothorax. At discharge patient still requiring oxygen for COPD. At discharge currently on 4 L per nasal cannula. Maintain oxygen above 93%. Patient will continue with his chronic steroids prednisone 7.5 mg daily. Patient will continue with his COPD medication as well. Recommend follow-up with pulmonology in 1 to 2 weeks to follow-up hospitalization and continue his care. Recommend to recheck chest x- ray in 2 to 4 weeks to monitor stability. COPD education provided. For his COPD will recommend Symbicort 2 puffs twice daily and Xopenex 2 puffs 3 times a day as needed for shortness of breath. Patient with atrial fibrillation on chronic anticoagulation therapyCoumadin and hypertension. This appears stable. Patient in normal sinus rhythm. At discharge patient will continue with metoprolol 50 mg 1 pill twice daily and Coumadin 7.5 mg every 48 hours. Recommend to recheck INR in 1 week to monitor his progress. Patient will need to establish care locally to continue his care with cardiology and a PCP. Patient with hyperlipidemia. At discharge patient will continue with Lipitor 40 mg daily. Patient will continue his other medications including folic acid daily, sulfasalazine 500 mg daily Vital Signs/Physical Exam: Temp Pulse Resp BP Pulse Ox 97.7 F 75 19 157/63 H 97 02/23/21 00:00 02/23/21 00:00 02/23/21 00:00 02/23/21 00:00 02/23/21 00:00 General: Alert, In no apparent distress, Oriented x3, Cooperative HEENT: Atraumatic Neck: Supple Respiratory: Clear to auscultation bilaterally, Normal air movement Cardiovascular: Normal pulses, Regular rate/rhythm Gastrointestinal: Normal bowel sounds, No tenderness, No masses, No rebound, No guarding Musculoskeletal: No erythema, No tenderness, No warmth Integumentary: No tenderness/swelling, No erythema, No warmth, No cyanosis Neurological: Normal speech, Normal strength at 5/5 x4 extr, Normal tone, Normal affect Laboratory Data at Discharge: WBC 4.10 K/uL (4.3-10.9) L D 02/23/21 03:32 Hgb 11.5 g/dL (13.6-17.9) L 02/23/21 03:32 Hct 34.6 % (39.6-49.0) L 02/23/21 03:32 Plt Count 159 K/uL (152-406) 02/23/21 03:32 PT 12.6 SECONDS (9.5-12.5) H 02/21/21 05:30 INR 1.09 02/21/21 05:30 APTT 29.2 SECONDS (24.3-36.9) 02/20/21 05:45 Sodium 141 mmol/L (136-145) 02/23/21 03:32 Potassium 4.0 mmol/L (3.5-5.1) 02/23/21 03:32 BUN 11 mg/dL (7-18) 02/23/21 03:32 Creatinine 0.83 mg/dL (0.55-1.3) 02/23/21 03:32 Glucose 85 mg/dL (74-106) 02/23/21 03:32 Magnesium 2.2 mg/dL (1.8-2.4) 02/23/21 03:32 Total Bilirubin 0.7 mg/dL (0.2-1.0) 02/20/21 05:45 AST 50 U/L (15-37) H 02/20/21 05:45 ALT 27 U/L (12-78) 02/20/21 05:45 Alkaline Phosphatase 106 U/L (45-117) 02/20/21 05:45 Home Medications: Aspirin [Aspirin EC 81 MG] 81 mg PO DAILY 02/20/21 Atorvastatin Calcium [Lipitor] 40 mg PO DAILY 02/20/21 Cyclobenzaprine [Flexeril*] 10 mg PO DAILYPRN PRN 02/20/21 Folic Acid 2,400 mcg PO DAILY 02/20/21 Levothyroxine [Synthroid*] 125 mcg PO DAILY 02/20/21 Methotrexate [Methotrexate*] 15 mg PO EVERY 7TH DAY 02/20/21 Metoprolol Tartrate [Lopressor*] 50 mg PO BID 02/20/21 Warfarin Sodium [Coumadin*] 2.5 mg PO Q48H 02/20/21 Warfarin Sodium [Coumadin*] 5 mg PO Q48H 02/20/21 predniSONE [Prednisone*] 7.5 mg PO DAILY 02/20/21 sulfaSALAzine [Sulfasalazine] 500 mg PO DAILY 02/20/21 Budesonide/Formoterol Fumarate [Symbicort 160-4.5 Mcg Inhaler] 2 puff IH BID #1 [email or web address] 02/23/21 Levalbuterol Tartrate [Xopenex Hfa] 2 puff IH TID PRN #1 hfa.[email or web address] 02/23/21 New Medications: Budesonide/Formoterol Fumarate [Symbicort 160-4.5 Mcg Inhaler] 2 puff IH BID #1 hfa.aer.ad Levalbuterol Tartrate [Xopenex Hfa] 2 puff IH TID PRN #1 hfa.[email or web address] PRN Reason: Shortness Of Breath Physician Discharge Instructions: Patient presented with spontaneous right-sided pneumothorax. There was no mention of trauma or increased coughing episodes. Patient with history of COPD on chronic steroids. Surgery was consulted for placement of chest tube. The patient was monitored closely. The chest tube was able to be removed without any difficulty. Recheck chest x-ray shows no further pneumothorax. At discharge patient still requiring oxygen for COPD. At discharge currently on 4 L per nasal cannula. Maintain oxygen above 93%. Patient will continue with his chronic steroids prednisone 7.5 mg daily. Patient will continue with his COPD medication as well. Recommend follow-up with pulmonology in 1 to 2 weeks to follow-up hospitalization and continue his care. Recommend to recheck chest x- ray in 2 to 4 weeks to monitor stability. COPD education provided. For his COPD will recommend Symbicort 2 puffs twice daily and Xopenex 2 puffs 3 times a day as needed for shortness of breath. Patient with atrial fibrillation on chronic anticoagulation therapyCoumadin and hypertension. This appears stable. Patient in normal sinus rhythm. At discharge patient will continue with metoprolol 50 mg 1 pill twice daily and Coumadin 7.5 mg every 48 hours. Recommend to recheck INR in 1 week to monitor his progress. Patient will need to establish care locally to continue his care with cardiology and a PCP. Patient with hyperlipidemia. At discharge patient will continue with Lipitor 40 mg daily. Patient will continue his other medications including folic acid daily, sulfasalazine 500 mg daily Diet: AHA Activity: Ad blanca Followup: Amanda Melchor FNP [Primary Care Provider] - Time spent managing pt's care (in minutes): 55
[2021-02-23] MEDS: LEVOTHYROXINE SOD 0.125 MG TAB PO SCH (07:30)
--- NOTE | 2021-02-23 07:45 | RAD REPORT ---
EXAM DESCRIPTION: RAD - Chest Single View - 02/23/2021 7:00 am CLINICAL HISTORY: follow up chest tube removal COMPARISON: Chest Single View dated 02/22/2021; Chest Single View dated 02/22/2021; Chest Single View dated 02/21/2021; Chest Single View dated 02/20/2021 FINDINGS: No appreciable pneumothorax identified. Remote right-sided rib fractures. There is some li near scarring and/or pleural plaquing in the right upper lobe. Some irregular opacities also present in the left lung that are unchanged and likely reflect chronic scarring. No edema or consolidation. N ormal heart size. No fractures are identified. IMPRESSION: No appreciable right-sided pneumothorax. No acute process in the lungs.
[2021-02-23] MEDS: SULFASALAZINE 500 MG E.C. TAB PO SCH (08:11)
[2021-02-23] MEDS: predniSONE 5 MG TAB PO SCH (08:11)
[2021-02-23] MEDS: ATORVASTATIN 40 MG TAB PO SCH (08:11)
[2021-02-23] MEDS: FOLIC ACID 1 MG TABLET PO SCH (08:11)
[2021-02-23] MEDS: METOPROLOL TAR 50 MG TAB PO SCH (08:11)
[2021-02-23] MEDS: CEFTRIAXONE/SWI 1gm 1 GM/10 ML SYR IVP SCH (08:12)
[2021-02-23] MEDS: ENOXAPARIN 40 MG/0.4 ML SQ SCH (08:12)
[2021-02-23 10:25] VITALS: O2SAT 96
[2021-02-23 12:51] VITALS: BP 136/77; TEMP 97.9
== END 2021-02-23 14:06 | disposition home or self-care (01) | DRG 201 ==
LOC: ER 11:37 → ERHOLD 16:06 → 2ND 20:06
PROVIDERS: ADMIT Hospitalist; ATTEND Family Medicine
PROC: 30233K1 Transfusion of Nonautologous Frozen Plasma into Peripheral Vein, Percutaneous Approach (ICD-10-PCS; 2021-02-19)
PROC: 0W9930Z Drainage of Right Pleural Cavity with Drainage Device, Percutaneous Approach (ICD-10-PCS; principal; 2021-02-20)
PROC: 0WP930Z Removal of Drainage Device from Right Pleural Cavity, Percutaneous Approach (ICD-10-PCS; 2021-02-23)
DX: J93.11 Primary spontaneous pneumothorax (principal); E03.9 Hypothyroidism, unspecified; M06.9 Rheumatoid arthritis, unspecified; I10 Essential (primary) hypertension; I48.91 Unspecified atrial fibrillation; E78.5 Hyperlipidemia, unspecified; J44.9 Chronic obstructive pulmonary disease, unspecified; Z87.891 Personal history of nicotine dependence; Z86.718 Personal history of other venous thrombosis and embolism; Z79.82 Long term (current) use of aspirin; Z79.890 Hormone replacement therapy; Z79.52 Long term (current) use of systemic steroids; Z79.01 Long term (current) use of anticoagulants; Z79.899 Other long term (current) drug therapy; Z20.822 Contact with and (suspected) exposure to COVID-19; Z23 Encounter for immunization
CPT/HCPCS: 36415; 36430; 71045; 80048; 80053; 80076; 82947; 83735; 83880; 84484; 85014; 85018; 85025; 85610; 85730; 86850; 86900; 86901; 86927; 90471; 90732; 93005; 96372; 96374; 99291; 99292; J0696; J1650; J2930; J3430; J7030; J7050; J7512; P9017; U0003

== ENCOUNTER 2021-05-16 03:02 | Inpatient (IN) | payer OTHER ==
[2021-05-16 04:08] LABS: Absolute Lymphocytes (CBC) 0.7 K/uL (0.7-4.9); Hematocrit 43.1 % (39.6-49.0); MPV 7.8 fL (7.6-11.3); RBC Red Blood Cell Count 4.22 M/uL (4.33-5.43)
[2021-05-16] MEDS ORDERED: NA CHLORIDE 0.9% 1,000 ML ONE (04:12)
[2021-05-16 04:27] LABS: ALT/SGPT 79 U/L (12-78); AST/SGOT 148 U/L (15-37); Albumin 3.3 g/dL (3.4-5.0); Alkaline Phosphatase 303 U/L (45-117); BUN Blood Urea Nitrogen 4 mg/dL (7-18); Bicarbonate 29 mmol/L (21-32); Bilirubin Direct 0.6 mg/dL (0-0.2); Bilirubin Total 1.5 mg/dL (0.2-1.0); Glucose Level 118 mg/dL (74-106); Magnesium 2.1 mg/dL (1.8-2.4); NT PRO-BNP 294 pg/mL (<125); Potassium 3.5 mmol/L (3.5-5.1); Protein, Total 7.7 g/dL (6.4-8.2); Sodium Level 137 mmol/L (136-145); Troponin (Emerg Dept Use Only) < 0.02 ng/mL (0.0-0.045)
[2021-05-16 04:30] LABS: Protime INR 3.11
[2021-05-16 04:31] LABS: Arterial Blood Carboxyhemoglob 1.3 % (0-1.5); Blood Gas Oxyhemoglobin 93.8 % (94-97)
--- NOTE | 2021-05-16 06:59 | EDPHYS ---
Physician Documentation [facility] Name: Raul Wilson Age: 66 yrs Sex: Male : 1955 Arrival Date: 05/16/2021 Time: 03:05 Bed 8 Private MD: ED Physician Omari Mahajan HPI: 05/16 03:38 This 66 yrs old Male presents to ER via Wheelchair with complaints of pkl Breathing Difficulty, Low O2 at home. 03:38 The patient has shortness of breath at rest. Onset: The symptoms/episode began/occurred pkl 2 day(s) ago. H/O COPD and collapsed right lung. Patient fell 2 days ago and bruised right posterior lung. Historical: - Allergies: 03:35 No Known Allergies; sj1 - Home Meds: 06:02 atorvastatin 40 mg oral tab 1 tab once daily [Active]; aspirin 81 mg Oral tab 81 mg sj1 daily [Active]; prednisone 5 mg Oral tab 1.5 tab once daily [Active]; warfarin 5 mg Oral tab 2 tabs at night [Active]; sulfasalazine 500 mg Oral tab 1 tab twice daily [Active]; levothyroxine 125 mcg cap 1 cap once daily [Active]; metoprolol tartrate 50 mg Oral tab 1 tab 2 times per day [Active]; nystatin 100,000 unit/gram Topical crea 2 times per day [Active]; - PMHx: 03:35 COPD; DVT to alma delia legs; Hypercholesterolemia; Hypertensive disorder; RA; Thyroid problem;sj1 - Immunization history:: Adult Immunizations up to date, Client reports receiving the 1st dose of the Covid vaccine. - Social history:: Smoking status: Patient/guardian denies using tobacco. ROS: 03:38 Eyes: Negative for injury, pain, redness, and discharge, ENT: Negative for injury, pkl pain, and discharge, Neck: Negative for injury, pain, and swelling, Cardiovascular: Negative for chest pain, palpitations, and edema. 03:38 Respiratory: Positive for shortness of breath, at rest. 03:38 Abdomen/GI: Negative for abdominal pain, nausea, vomiting, and diarrhea. 03:38 Back: Negative for pain at rest. 03:38 : Negative for urinary symptoms. 03:38 MS/extremity: Negative for acute changes. 03:38 Skin: Negative for rash. 03:38 Neuro: Negative for altered mental status, loss of consciousness. Exam: 03:38 Head/Face: Normocephalic, atraumatic. Eyes: Pupils equal round and reactive to light, pkl extra-ocular motions intact. Lids and lashes normal. Conjunctiva and sclera are non-icteric and not injected. Cornea within normal limits. Periorbital areas with no swelling, redness, or edema. ENT: Nares patent. No nasal discharge, no septal abnormalities noted. Tympanic membranes are normal and external auditory canals are clear. Oropharynx with no redness, swelling, or masses, exudates, or evidence of obstruction, uvula midline. Mucous membranes moist. Neck: Trachea midline, no thyromegaly or masses palpated, and no cervical lymphadenopathy. Supple, full range of motion without nuchal rigidity, or vertebral point tenderness. No Meningismus. Chest/axilla: Normal chest wall appearance and motion. Nontender with no deformity. No lesions are appreciated. Cardiovascular: Regular rate and rhythm with a normal S1 and S2. No gallops, murmurs, or rubs. Normal PMI, no JVD. No pulse deficits. 03:38 Respiratory: moderate respiratory distress is noted, Respirations: labored breathing, Breath sounds: bronchial sounds, that are moderate, are scattered. 03:38 Abdomen/GI: Bowel sounds: normal, Palpation: abdomen is soft and non-tender, in all quadrants. 03:38 Back: pain, that is moderate, of the posterior right lung, bruise noted posterior right lung. 03:38 : Exam negative for acute changes. 03:38 Musculoskeletal/extremity: Exam is negative for acute changes. 03:38 Skin: bruise right posterior right lung. 03:38 Neuro: Orientation: is normal, Mentation: is normal, Cranial nerves: grossly normal, Motor: is normal. Vital Signs: 03:31 BP 166 / 95; Pulse 109; Resp 24 S; Temp 98.8; Pulse Ox 96% on Non-rebreather mask; sj1 Weight 86.18 kg (R); Height 6 ft. 0 in. (182.88 cm); Pain 3/10; 05:24 BP 153 / 85; Pulse 96; Resp 19 S; Pulse Ox 96% on Non-rebreather mask; Pain 4/10; sj1 06:40 BP 112 / 76; Pulse 88; Resp 16; Pulse Ox 100% ; ea 07:00 BP 128 / 86; Pulse 97; Resp 17; Pulse Ox 94% on 15% Non-rebreather mask; sv 07:30 BP 159 / 95; Pulse 98 MON; Resp 14; Pulse Ox 98% on 2 lpm NC; sv 09:00 BP 142 / 85; Pulse 97; Resp 13; Pulse Ox 96% ; sv 03:31 Body Mass Index 25.77 (86.18 kg, 182.88 cm) sj1 07:30 Sinus Rhythm sv MDM: 03:26 Patient medically screened. pkl 06:11 Data reviewed: vital signs, nurses notes, lab test result(s), radiologic studies, CT pkl scan, plain films. ED course: Talked to Dr. Rossi, will put chest tube in the patient in the ER. To admit to Hospitalist. 05/16 03:33 Order name: Basic Metabolic Panel pkl 05/16 03:33 Order name: CBC with Diff; Complete Time: 04:45 pkl 05/16 03:33 Order name: LFT's; Complete Time: 04:45 pkl 05/16 03:33 Order name: Magnesium; Complete Time: 04:45 pkl 05/16 03:33 Order name: NT PRO-BNP; Complete Time: 04:45 pkl 05/16 03:33 Order name: PT-INR; Complete Time: 04:45 pkl 05/16 03:33 Order name: Troponin (emerg Dept Use Only); Complete Time: 04:45 pkl 05/16 03:33 Order name: ABG; Complete Time: 04:45 pkl 05/16 03:33 Order name: D-Dimer; Complete Time: 04:45 pkl 05/16 03:33 Order name: CRP; Complete Time: 04:45 pkl 05/16 03:33 Order name: Blood Culture Adult (2) pkl 05/16 03:33 Order name: Lactate; Complete Time: 04:45 pkl 05/16 03:33 Order name: Procalcitonin; Complete Time: 04:59 pkl 05/16 03:34 Order name: Basic Metabolic Panel; Complete Time: 04:45 EDMS 05/16 03:33 Order name: XRAY Chest (1 view); Complete Time: 04:45 pkl 05/16 03:36 Order name: Creatinine, Serum pkl 05/16 03:48 Order name: CT Chest, Abdomen, Pelvis - W/Contrast pkl 05/16 03:59 Order name: SARS-COV-2 RT PCR; Complete Time: 05:40 EDMS 05/16 04:44 Order name: CREATININE WHOLE BLOOD; Complete Time: 04:45 EDMS 05/16 06:29 Order name: Type And Screen bb 05/16 07:15 Order name: CXR XRAY: post chest tube placement eb 05/16 07:40 Order name: Chest Single View EDMS 05/16 07:40 Order name: Chest Single View EDMS 05/16 08:24 Order name: Comprehensive Metabolic Panel EDMS 05/16 08:24 Order name: Comprehensive Metabolic Panel EDMS 05/16 08:24 Order name: CBC with Automated Diff EDMS 05/16 08:24 Order name: CBC with Automated Diff EDMS 05/16 03:33 Order name: EKG; Complete Time: 03:34 pkl 05/16 03:33 Order name: Cardiac monitoring; Complete Time: 03:51 pkl 05/16 03:33 Order name: EKG - Nurse/Tech; Complete Time: 03:51 pkl 05/16 03:33 Order name: IV Saline Lock; Complete Time: 03:51 pkl 05/16 03:33 Order name: Labs collected and sent; Complete Time: 03:52 pkl 05/16 03:33 Order name: O2 Per Protocol; Complete Time: 03:52 pkl 05/16 03:33 Order name: O2 Sat Monitoring; Complete Time: 03:52 pkl 05/16 07:40 Order name: Chest Single View EDMS 05/16 07:40 Order name: Chest Single View EDMS 05/16 07:40 Order name: Chest Single View EDMS 05/16 07:40 Order name: Chest Single View EDMS 05/16 08:24 Order name: CONS Physician Consult EDMS 05/16 08:24 Order name: Heart Healthy EDIN Administered Medications: 03:51 Drug: NS 0.9% 1000 ml Route: IV; Rate: 100 ml/hr; Site: left antecubital; df1 09:42 Follow up: IV Status: Infusion continued upon admission sv Disposition Summary: 05/16/21 06:58 Hospitalization Ordered Hospitalization Status: Inpatient Admission pkl Provider: Sunny Evans pkl Location: Telemetry/MedSurg (Inpatient) pkl Condition: Stable pkl Problem: new pkl Symptoms: are unchanged pkl Bed/Room Type: Standard pkl Room Assignment: 215(05/16/21 09:32) eb Diagnosis - Large right pneumothorax with mediasternum shifted to the left. 7th - 9th pkl and 11th right rib fractures Forms: - Medication Reconciliation Form pkl - SBAR form pkl Signatures: Dispatcher [employer] EDMS Omari Mahajan MD MD pkl Tiffanie Velasco Dawn df1 Maryan Barney RN RN sj1 Marielena Aguilera RN sv Corrections: (The following items were deleted from the chart) 03:36 03:36 Creatinine ordered. EDMS EDMS 03:36 03:36 Creatinine ordered. EDMS EDMS 03:49 03:37 Chest For PE Angio+CT.RAD.BRZ ordered. EDMS EDMS 03:59 03:36 CORONAVIRUS+MR.LAB.BRZ ordered. EDMS EDMS 09:32 06:58 pkl eb
--- NOTE | 2021-05-16 06:59 | ER ---
Nurse's Notes [facility] Name: Raul Wilson Age: 66 yrs Sex: Male : 1955 Arrival Date: 05/16/2021 Time: 03:05 Bed 8 Private MD: Diagnosis: Large right pneumothorax with mediasternum shifted to the left. 7th - 9th and 11th right rib fractures Presentation: 05/16 03:31 Chief complaint: Patient states: worsening SOB today, room air sat 90% at home. on home sj1 O2 for COPD. Fall on injuring rt rib area, bruising noted. takes wafarin. hx on rt pneumo. denies hitting head and loc. Coronavirus screen: Vaccine status: Patient reports receiving the 1st dose of the Covid vaccine. Ebola Screen: Patient negative for fever greater than or equal to 101.5 degrees Fahrenheit, and additional compatible Ebola Virus Disease symptoms Patient denies exposure to infectious person. Initial Sepsis Screen: Does the patient meet any 2 criteria? No. Patient's initial sepsis screen is negative. Does the patient have a suspected source of infection? No. Patient's initial sepsis screen is negative. Risk Assessment: Do you want to hurt yourself or someone else? Patient reports no desire to harm self or others. Onset of symptoms was May 15, 2021. 03:31 Method Of Arrival: Wheelchair sj 03:31 Acuity: SAMMI 2 sj1 Triage Assessment: 03:35 General: Appears well groomed, Behavior is cooperative. Pain: Complains of pain in rt sj1 rib pain Pain does not radiate. Pain currently is 3 out of 10 on a pain scale. Quality of pain is described as aching, Pain began 2-3 days ago. Is continuous, Aggravated by increased activity. EENT: No deficits noted. Neuro: No deficits noted. Cardiovascular: No deficits noted. Respiratory: Reports shortness of breath at rest on exertion Onset: The symptoms/episode began/occurred gradually, the patient has moderate shortness of breath. GI: No deficits noted. : No deficits noted. Derm: No deficits noted. Musculoskeletal: Reports pain in rt rib area. Injury Description: fall on 05/14/21 injurying rt side. 03:39 Derm: Bruising that is dark purple. sj1 Historical: - Allergies: 03:35 No Known Allergies; sj1 - Home Meds: 06:02 atorvastatin 40 mg oral tab 1 tab once daily [Active]; aspirin 81 mg Oral tab 81 mg sj1 daily [Active]; prednisone 5 mg Oral tab 1.5 tab once daily [Active]; warfarin 5 mg Oral tab 2 tabs at night [Active]; sulfasalazine 500 mg Oral tab 1 tab twice daily [Active]; levothyroxine 125 mcg cap 1 cap once daily [Active]; metoprolol tartrate 50 mg Oral tab 1 tab 2 times per day [Active]; nystatin 100,000 unit/gram Topical crea 2 times per day [Active]; - PMHx: 03:35 COPD; DVT to alma delia legs; Hypercholesterolemia; Hypertensive disorder; RA; Thyroid problem;sj1 - Immunization history:: Adult Immunizations up to date, Client reports receiving the 1st dose of the Covid vaccine. - Social history:: Smoking status: Patient/guardian denies using tobacco. Screenin:01 Abuse screen: Denies threats or abuse. Denies injuries from another. Nutritional sj1 screening: No deficits noted. Tuberculosis screening: No symptoms or risk factors identified. Fall Risk Fall in past 12 months (25 points). Assessment: 04:01 General:. Pain: Complains of pain in rt rib area. Neuro: No deficits noted. sj1 Cardiovascular: Rhythm is sinus tachycardia. Respiratory: Airway Trachea midline Respiratory effort is even, shallow, Respiratory pattern is regular, symmetrical. GI: No deficits noted. : No deficits noted. EENT: No deficits noted. Derm: No deficits noted. Musculoskeletal: Swelling present in rt rib area. 04:01 Respiratory: Breath sounds are diminished. sj1 06:39 Reassessment: assumed care of patient at this time. patient transferred to room 4. ms4 patient currently on NRB at 15 LPM. o2 sat 93%. breath sounds diminished on the right side. patient has bruising to right rib area. patient denies pain at this time. General:. Pain: Denies pain. Neuro: No deficits noted. Cardiovascular: Rhythm is sinus tachycardia. Respiratory: Airway is patent Trachea midline Respiratory effort is even, shallow, Respiratory pattern is regular, symmetrical, Breath sounds are clear in left upper lobe, left lower lobe, left posterior upper lobe and left posterior lower lobe Breath sounds are diminished in right upper lobe, right middle lobe, right lower lobe, right posterior upper lobe, right posterior middle lobe and right posterior lower lobe. Injury Description: Bruise sustained to right lateral chest is purple, black, was sustained 2 days ago. 06:44 Reassessment: Patient and/or family updated on plan of care and expected duration. Pain ms4 level reassessed. 06:45 Reassessment: awaiting Dr. Rose at this time. ms4 07:03 Reassessment: report given to orlando olivier. ms4 07:05 Reassessment: Dr. Rossi at bedside for chest tube placement. hb 08:00 Reassessment: Patient appears in no apparent distress at this time. Patient and/or sv family updated on plan of care and expected duration. Pain level reassessed. Patient is alert, oriented x 3, equal unlabored respirations, skin warm/dry/pink. Patient states feeling better. Patient states symptoms have improved. 08:41 Reassessment: Dr Evans at the bedside. sv 09:42 Reassessment: Patient appears in no apparent distress at this time. Patient and/or sv family updated on plan of care and expected duration. Pain level reassessed. Patient is alert, oriented x 3, equal unlabored respirations, skin warm/dry/pink. Patient states feeling better. Patient states symptoms have improved. Vital Signs: 03:31 BP 166 / 95; Pulse 109; Resp 24 S; Temp 98.8; Pulse Ox 96% on Non-rebreather mask; sj1 Weight 86.18 kg (R); Height 6 ft. 0 in. (182.88 cm); Pain 3/10; 05:24 BP 153 / 85; Pulse 96; Resp 19 S; Pulse Ox 96% on Non-rebreather mask; Pain 4/10; sj1 06:40 BP 112 / 76; Pulse 88; Resp 16; Pulse Ox 100% ; ea 07:00 BP 128 / 86; Pulse 97; Resp 17; Pulse Ox 94% on 15% Non-rebreather mask; sv 07:30 BP 159 / 95; Pulse 98 MON; Resp 14; Pulse Ox 98% on 2 lpm NC; sv 09:00 BP 142 / 85; Pulse 97; Resp 13; Pulse Ox 96% ; sv 03:31 Body Mass Index 25.77 (86.18 kg, 182.88 cm) sj1 07:30 Sinus Rhythm sv Vitals: 05:24 Cardiac Rhythm Assessment Regular Sinus rhythm. sj1 ED Course: 03:05 Patient arrived in ED. wm 03:26 Omari Mahajan MD is Attending Physician. pkl 03:31 EKG completed in triage. Results shown to MD. sj1 03:35 Triage completed. sj1 03:39 No provider procedures requiring assistance completed. Inserted saline lock: 20 gauge sj1 in left antecubital area, using aseptic technique. Blood collected. Oxygen administration via non-rebreather mask \T\ 15L/min. 03:48 XRAY Chest (1 view) In Process Unspecified. EDMS 03:51 Basic Metabolic Panel Sent. df1 03:52 Creatinine, Serum Sent. df1 03:59 Basic Metabolic Panel Sent. sj1 03:59 Procalcitonin Sent. sj1 03:59 Blood Culture Adult (2) Sent. sj1 03:59 Lactate Sent. sj1 03:59 CRP Sent. sj1 03:59 D-Dimer Sent. sj1 03:59 CBC with Diff Sent. sj1 03:59 LFT's Sent. sj1 03:59 Magnesium Sent. sj1 03:59 NT PRO-BNP Sent. sj1 03:59 PT-INR Sent. sj1 03:59 Troponin (emerg Dept Use Only) Sent. sj1 04:00 Arm band placed on right wrist. sj1 04:01 Patient has correct armband on for positive identification. Placed in gown. Bed in low sj1 position. Call light in reach. Side rails up X 1. environmental monitoring specialist on. Pulse ox on. NIBP on. 04:34 CT Chest, Abdomen, Pelvis - W/Contrast In Process Unspecified. EDMS 06:58 Sunny Evans MD is Hospitalizing Provider. pkl 07:20 Assist provider with chest tube insertion with 20 Fr. in right lateral chest wall. Tray sv was set up. Attached to to pleur-evac and continuous wall suction at 40. Chest tube inserted by Isaak Rossi MD Placement verified by CXR, fluctuation of fluid, return of blood, Dressed with Vaseline gauze, 4X4s, med[place] tape Patient tolerated well. 07:29 X-ray(s) taken. sv 07:36 Marielena Aguilera RN is Primary Nurse. sv 07:49 CXR XRAY: post chest tube placement In Process Unspecified. EDMS 09:42 Patient admitted, IV remains in place. intact. sv Administered Medications: 03:51 Drug: NS 0.9% 1000 ml Route: IV; Rate: 100 ml/hr; Site: left antecubital; df1 09:42 Follow up: IV Status: Infusion continued upon admission sv Outcome: 06:58 Decision to Hospitalize by Provider. pkl 09:42 Admitted to Tele accompanied by nurse, via stretcher, room 215, with oxygen, with sv chart, Report called to Karissa MARQUEZ 09:42 Condition: stable 09:42 Instructed on the need for admit. 10:16 Patient left the ED. sv Signatures: Dispatcher [employer] EDMS Marielena Aguilera RN Omari Olivares MD MD pkl Lily Nichole RN Ayse Mancuso RN RN Wanda Bradshaw Mikaela, RN RN ms4 Kelley, Adina df1 Maryan Barney RN RN sj1 Corrections: (The following items were deleted from the chart) 03:59 03:59 CORONAVIRUS+.DUNG.ANU drawn and sent. sj1 EDMS 07:29 07:20 Assist provider with chest tube insertion in right lateral chest wall. Tray was sv set up. Attached to to pleur-evac and continuous wall suction at 40. Chest tube inserted by Isaak Rossi MD Placement verified by CXR, fluctuation of fluid, return of blood, Dressed with Vaseline gauze, 4X4s, med[place] tape Patient tolerated well. sv
--- NOTE | 2021-05-16 07:28 | P.OP ---
Preoperative diagnosis: RIGHT Tension pneumothorax Postoperative diagnosis: RIGHT Tension pneumothorax Primary procedure: Placement of RIGHT Thoracostomy Tube Anesthesia: Local 1% Lidocaine Estimated blood loss: <5cc Specimen: none Findings: large amount of air returned, minimal blood returned Complications: None Drain(s): Other (20Fr THAL chest tube) Transferred to: Other (ER) Condition: Fair
[2021-05-16] MEDS ORDERED: LIDOCAINE 1% W/EPI 1:100,000 MDV 20 ML VIAL ONE (07:38)
[2021-05-16] MEDS ORDERED: ACETAMINOPHEN 500 MG TAB PO PRN (08:21)
[2021-05-16] MEDS ORDERED: ONDANSETRON 4 MG/2 ML VIAL IV PRN (08:21)
--- NOTE | 2021-05-16 09:33 | RAD REPORT ---
EXAM DESCRIPTION: RAD - Chest Single View - 05/16/2021 7:49 am CLINICAL HISTORY: post chest tube placement Chest pain. COMPARISON: Chest Single View dated 02/23/2021; Chest Single View dated 02/22/2021; Chest Single View dated 02/22/2021; Chest Single View dated 02/21/2021; Chest Abdomen Pelvis W Cont dated 05/16/2021 FINDINGS: Portable technique limits examination quality. Right-sided chest tube has been placed. No measurable right-sided pneumothorax seen. Prominent emphys kay is present. The heart is normal in size. No displaced fractures.
--- NOTE | 2021-05-16 09:52 | OP ---
Date of Procedure: 05/16/2021 Surgeon: Isaak Rossi MD, Preoperative Diagnosis: Right tension pneumothorax. Postoperative Diagnosis: Right tension pneumothorax. Procedure Performed: Placement of right thoracostomy tube. Anesthesia: 1% lidocaine used. Estimated Blood Loss: Less than 5 cc. Specimen: None. Findings: Large amount of air return. Minimal blood returned. Complications: None. Drains: 20-Arabic Thal chest tube placed in the right mid axillary line. The patient remained in the ER throughout the procedure in fair condition. Procedure In Detail: After informed consent was obtained, the patient was prepped and draped in the usual sterile fashion after adequate anesthesia achieved, and I palpated the area of the fifth and si xth intercostal space midaxillary line. I anesthetized the skin appropriately. After prepping and d raping in a sterile fashion, and I made a small raphael incision overlying this area. I palpated over t he rib to be the projected course of the chest tube. I then anesthetized the tract with 1% lidocaine with epinephrine. I then cannulated the chest using the cannulated at the chest wall with a finder needle and placed the wire using Seldinger technique. The wire was removed. I then performed sequen tial dilatation over the rib and advanced the chest tube in a cranio anterior direction and air was i mmediately returned. Minimal blood was returned after being hooked up to the new evac system and the n secured with 2-0 silk suture and sterile dressing placed over top. The patient tolerated the proce dure well without evidence of complication and remained in the ER throughout the procedure. All coun ts were correct in the case. Chest tube tiling well at the end of the procedure, placed on suction. Stat chest x-ray will be performed. ERIC/ALEJANDRO Voice ID: [id number] Report ID: [id number]
--- NOTE | 2021-05-16 10:22 | CON ---
Date of Consultation: 05/16/2021 History Of Present Illness: I was called at approximately around 6 a.m. regarding this patient's con dition. The patient is a 66-year-old male, who presents to the ER via wheelchair with complaints of difficulty breathing and low oxygenation at home. He had some progressive shortness of breath after a fall approximately 2 days ago onto his right side. He has bruising on the right side of his chest as well as on his right hip area. He has had a previous pneumothorax spontaneously developed several months ago. A chest tube was placed at that time, but he has not had any issues since the removal o f the chest tube. He currently has shortness of breath and is currently maintained on oxygen, has di fficulty breathing. Past Medical History: Significant for COPD, DVT to bilateral lower extremities, hypercholesterolemia , hypertensive disorder, rheumatoid arthritis, and hypothyroidism. Surgical History: He has had a right chest tube placed before and the same right side. Allergies: NO KNOWN DRUG ALLERGIES. Home Medications: Include atorvastatin, warfarin, sulfasalazine, levothyroxine, nystatin. Review of Systems: Ten-point review of systems other than HPI, denies. Physical Examination: Vital Signs: At the time of my examination, his vital signs were concerning for saturations in the 8 0s. He is tachypneic, mildly tachycardic. HEENT: Otherwise normocephalic. His sclerae were anicteric. Mucous membranes are moist. Oropharyn x is clear. Neck: Supple without JVD. Chest: Decreased expansion and excursion. He has absent breath sounds on the right. Well-healed crane rgical scars evident on this side as well. He has bruising and ecchymosis and significant tenderness over the right chest wall where there are ecchymotic changes to the right chest wall and tenderness along the chest wall anteriorly and laterally. Pelvic: Stable. Extremities: No clubbing, cyanosis, edema. Skin: Warm and dry. Laboratory Data: Laboratory exam was performed. His white blood cell count of 8.2, hemoglobin is 14 .4, hematocrit of 43.1, platelet count was 185, neutrophils were 83%. His PT was 36.2, INR was 3.11. D-dimer was 1108. His ABG showed a pH of 7.4, CO2 of 36, O2 of 88, bicarb 26.2, base excess 2.7. His inspired O2 was 100%, and his oxygen saturation was 96% during this initial assessment. Sodium 1 37, potassium 3.5, chloride 100, carbon dioxide 29, BUN 4, creatinine 0.8, glucose was 118. Lactic a chandni 1.4. Total bilirubin 1.5, direct bilirubin 0.6, AST 140, ALT 79, alkaline phosphatase is 303. P rocalcitonin 0.07. COVID was negative. He had imaging performed, which included CT abdomen and pelv is officially read as seventh through ninth and eleventh right rib fractures. Multilevel disk space narrowing and degenerative endplate changes of lumbar spine. Large right pneumothorax with associate d consolidation, atelectasis, mediastinal shift to the left, severe emphysematous changes in the lung s with an upper lung predominance 4.5 cm hiatal hernia. Assessment And Plan: This is a 66-year-old male, who comes in after a fall 2 days ago, who comes in with a likely traumatic pneumothorax on the right. 1.IV fluid hydration. 2.Pain control. 3.I have explained risks, benefits, and alternatives of placement of right thoracostomy tube, includ ing but not limited to bleeding, infection, damage to surrounding tissues including lung, heart, grea t vessels, significant bleeding risk as he has on blood thinners in need for more surgery and operati ons. 4.Both point, I have explained the patient to follow up with a thoracic surgeon as this is the secon d pneumothorax on the right, although this being atraumatic, not spontaneous. He still should have c onsider thoracic surgery consultation. However, chest tube will be placed to temporize the condition . He will be admitted for observation and pain control. 5.Continue medical management. ERIC/ALEJANDRO Voice ID: [id number] Report ID: [id number]
[2021-05-16] MEDS: NA CHLORIDE 0.9% 1,000 ML IV SCH ×2 (10:24→17:36)
--- NOTE | 2021-05-16 10:24 | P.HP ---
Certification for Inpatient Patient admitted to: Inpatient With expected LOS: >2 Midnights Patient will require the following post-hospital care: None Practitioner: I am a practitioner with admitting privileges, knowledge of patient current condition, hospital course, and medical plan of care. Services: Services provided to patient in accordance with Admission requirements found in Title 42 Section 412.3 of the Code of Federal Regulations Patient History Date of Service: 05/16/21 Reason for admission: Pneumothorax with respiratory distress History of Present Illness: Patient is a 66-year-old gentleman who presents to the hospital after getting severely short of breath. Patient had a fall a couple a days ago and ended up injuring 3 of his lower ribs on the right side. He states his breathing got significantly worse. He has had a pneumothorax in the past and he felt like that is what has been causing his struggle with his breathing. Decision was made to come into the emergency room. Patient had chest x-ray which showed right-sided pneumothorax. General surgery was consulted and patient had a chest tube placed. Patient is feeling much better. He looks very comfortable. He does have a history of COPD and will continue with COPD management. Unsure if this is pneumothorax related to his rib fracture or if he has spontaneous pneum othorax like in the past. Will Consult Pulmonary as well. He also states that he is on an experimental therapy the lower his cholesterol which she goes to [place], [place] for his treatments. This is every quarter. He also follows up with his geomagnetician in the same area. Allergies No Known Allergies Allergy (Unverified 02/19/21 20:52) Home Medications: Aspirin [Aspirin EC 81 MG] 81 mg PO DAILY 02/20/21 Atorvastatin Calcium [Lipitor] 40 mg PO DAILY 02/20/21 Cyclobenzaprine [Flexeril*] 10 mg PO DAILYPRN PRN 02/20/21 Folic Acid 2,400 mcg PO DAILY 02/20/21 Levothyroxine [Synthroid*] 125 mcg PO DAILY 02/20/21 Methotrexate [Methotrexate*] 15 mg PO EVERY 7TH DAY 02/20/21 Metoprolol Tartrate [Lopressor*] 50 mg PO BID 02/20/21 Warfarin Sodium [Coumadin*] 2.5 mg PO Q48H 02/20/21 Warfarin Sodium [Coumadin*] 5 mg PO Q48H 02/20/21 predniSONE [Prednisone*] 7.5 mg PO DAILY 02/20/21 sulfaSALAzine [Sulfasalazine] 500 mg PO DAILY 02/20/21 Albuterol Inhaler [Ventolin Inhaler*] 2 puff IH TID PRN #1 [email or web address] 02/23/21 Fluticasone/Salmeterol [Airduo Respiclick 113-14 Mcg] 1 each IH BID #1 [email or web address] 02/23/21 - Past Medical/Surgical History Has patient received pneumonia vaccine in the past: No Diabetic: No -: COPD -: HTN -: DVT -: bilateral leg DVT -: 2 stents to right leg, 1 stent to left leg -: stents to alma delia leg -: neck sx - Family History Father Family History: Reviewed- Non-Contributory - Social History Alcohol use: No CD- Drugs: No Review of Systems 10-point ROS is otherwise unremarkable Physical Examination - Vital Signs Temperature: 98 F Blood Pressure: 130/80 Pulse: 88 Respirations: 18 Pulse Ox (%): 96 - Physical Exam General: Alert, In no apparent distress, Oriented x3 HEENT: Atraumatic, PERRLA, Mucous membr. moist/pink, EOMI, Sclerae nonicteric Neck: Supple, 2+ carotid pulse no bruit, No LAD, Without JVD or thyroid abnormality Respiratory: Diminished, Other (Right-sided chest tube in place) Cardiovascular: Regular rate/rhythm, Normal S1 S2, Systolic murmur Gastrointestinal: Normal bowel sounds, Soft and benign, Non-distended, No tenderness Musculoskeletal: No clubbing, No swelling, No tenderness Integumentary: No rashes Neurological: Normal gait, Normal speech, Normal strength at 5/5 x4 extr, Normal tone, Sensation intact, Cranial nerves 3-12 intact, Normal affect Lymphatics: No axilla or inguinal lymphadenopathy - Studies Laboratory Data (last 24 hrs) 05/16/21 03:30: PT 36.2 H, INR 3.11 05/16/21 03:30: WBC 8.20, Hgb 14.4, Hct 43.1, Plt Count 185 05/16/21 03:30: Sodium 137, Potassium 3.5, BUN 4 L, Creatinine 0.83, Glucose 118 H, Magnesium 2.1, Total Bilirubin 1.5 H, AST 148 H, ALT 79 H, Alkaline Phosphatase 303 H Assessment & Plan - Problems (Diagnosis) (1) Fall Current Visit: Yes Status: Acute (2) Closed rib fracture Current Visit: Yes Status: Acute (3) Pneumothorax Current Visit: Yes Status: Acute (4) CAD (coronary artery disease) Current Visit: Yes Status: Acute (5) PAD (peripheral artery disease) Current Visit: Yes Status: Acute (6) COPD (chronic obstructive pulmonary disease) Current Visit: No Status: Acute - Plan Plan: 1. Chest tube management per surgery 2. Pulmonary consultation with patient as having a history of spontaneous pneumothorax 3. Repeat chest x-ray in the morning 4. Continue with treatment for is COPD 5. Continue with management of his atherosclerotic disease 6. Pain control 7. Monitor oxygenation 8. GI and DVT prophylaxis Discharge Plan: Home Plan to discharge in: Greater than 2 days - Advance Directives Does patient have a Living Will: No Does patient have a Durable POA for Healthcare: No - Code Status/Comfort Care Code Status Assessed: Yes Code Status: Full Code Critical Care: No Time Spent Managing PTS Care (In Minutes): 45
[2021-05-16] MEDS: MORPHINE 2 MG/ML SYR IV PRN ×4 (10:25→21:04)
[2021-05-16 10:34] VITALS: BMI 25.7
[2021-05-16] MEDS ORDERED: ALBUTEROL INHALER 60 PUFF/8 GM IH PRN (13:20)
[2021-05-16] MEDS ORDERED: CYCLOBENZAPRINE 10 MG TAB PO PRN (13:20)
[2021-05-16] MEDS: METOPROLOL TAR 50 MG TAB PO SCH (20:44)
--- NOTE | 2021-05-16 21:47 | RAD REPORT ---
EXAM DESCRIPTION: ADDENDUM #1 THIS REPORT CONTAINS FINDINGS THAT MAY BE CRITICAL TO PATIENT CARE: Dr. Mahajan stated they are aware of the findings to Jesi Arzate and declined a telephone conference with Dr. David Leiva on 05/16 6:03 AM CDT. Electronically signed by: David Leiva MD 05/16/2021 6:19 AM CDT End of Addendum EXAM: CT Chest, Abdomen and Pelvis With Intravenous Contrast CLINICAL HISTORY: The patient is 66 years old and is Male; fall TECHNIQUE: Axial computed tomography images of the chest, abdomen and pelvis with intravenous contra st. Sagittal and coronal reformatted images were created and reviewed. This CT exam was performed using one or more of the following dose reduction techniques: automated exposure control, adjustme nt of the mA and/or kV according to patient size, and/or use of iterative reconstruction technique. COMPARISON: No relevant prior studies available. FINDINGS: CHEST: Lungs: Severe emphysematous changes in the lungs with an upper lung predominance. Pleural space: Large right pneumothorax with associated consolidation or atelectasis. The mediast inum is shifted to the left. No significant effusion. Heart: Unremarkable. No cardiomegaly. No significant pericardial effusion. Mediastinum: 4.5 cm hiatal hernia. ABDOMEN: Liver: Unremarkable. No mass. Gallbladder and bile ducts: Unremarkable. No calcified stones. No ductal dilation. Pancreas: Unremarkable. No ductal dilation. No mass. Spleen: Unremarkable. No splenomegaly. Adrenals: Unremarkable. No mass. Kidneys and ureters: 1.3 cm simple cyst in the left kidney. ACR White Paper guidelines (Herkaren, et al. JACR 2018; 15(2):264-273) suggest no follow-up is necessary. No hydronephrosis. No solid mass. Stomach and bowel: Scattered colonic diverticula. No obstruction. No mucosal thickening. PELVIS: Appendix: No findings to suggest acute appendicitis. Bladder: Unremarkable. No mass. Reproductive: Unremarkable as visualized. CHEST, ABDOMEN and PELVIS: Intraperitoneal space: Unremarkable. No significant fluid collection. No free air. Bones/joints: 7th-9th and 11th right rib fractures. Multilevel disc space narrowing with degenerative endplate changes in the lumbar spine. No dislocation. Soft tissues: Unremarkable. Vasculature: Scattered atherosclerotic vascular calcifications. 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 Lymph nodes: Unremarkable. No enlarged lymph nodes. IMPRESSION: 1. 7th-9th and 11th right rib fractures. 2. Large right pneumothorax with associated consolidation or atelectasis. The mediastinum is shifte d to the left. 3. Severe emphysematous changes in the lungs with an upper lung predominance. 4. 4.5 cm hiatal hernia. Electronically signed by: David Leiva MD 05/16/2021 5:48 AM CDT Due to temporary technical issues with the PACS/Fluency reporting system, reports are being signed by the in house radiologists without review as a courtesy to insure prompt reporting. The interpreting radiologist is fully responsible for the content of the report.
[2021-05-17] MEDS: MORPHINE 2 MG/ML SYR IV PRN ×5 (01:30→15:27)
[2021-05-17 05:50] LABS: Absolute Lymphocytes (CBC) 0.5 K/uL (0.7-4.9); Basophils % 0.7 % (0-1.3); Hematocrit 34.8 % (39.6-49.0); Lymphocytes % 7.4 % (15.3-44.8); RBC Red Blood Cell Count 3.38 M/uL (4.33-5.43)
[2021-05-17] MEDS: LEVOTHYROXINE SOD 0.125 MG TAB PO SCH (06:06)
[2021-05-17 06:07] LABS: ALT/SGPT 47 U/L (12-78); AST/SGOT 71 U/L (15-37); Albumin 2.6 g/dL (3.4-5.0); Alkaline Phosphatase 199 U/L (45-117); BUN Blood Urea Nitrogen 3 mg/dL (7-18); Bicarbonate 28 mmol/L (21-32); Bilirubin Total 1.6 mg/dL (0.2-1.0); Glucose Level 91 mg/dL (74-106); Potassium 3.3 mmol/L (3.5-5.1); Protein, Total 6.3 g/dL (6.4-8.2); Sodium Level 137 mmol/L (136-145)
[2021-05-17] MEDS: WARFARIN SODIUM 2.5 MG TAB PO SCH (07:49)
[2021-05-17] MEDS: NA CHLORIDE 0.9% 1,000 ML IV SCH ×2 (08:00→11:40)
[2021-05-17 08:10] LABS: Blood Morphology Comment NOT SEEN (NOT SEEN); Platelet Estimate DECR; White Blood Cell Scan OK (OK)
--- NOTE | 2021-05-17 08:32 | RAD REPORT ---
EXAM DESCRIPTION: RAD - Chest Single View - 05/17/2021 6:41 am CLINICAL HISTORY: Chest Tube Placement COMPARISON: May 16 TECHNIQUE: AP portable chest image was obtained 05/17/2021 6:41 am . FINDINGS: Right-sided chest tube remains in place with the tip superimposed near the superior right hilum. Chest tube has retracted slightly from the prior study. Chest tube remains in good position. No measurable right-sided pneumothorax seen. Anterior pneumothorax can be occult on portable imaging. Subcutaneous emphysema near the chest tube insertion site has not changed. Right base atelectasis is present. Chronic fibro emphysematous lung changes are again noted. No pulmo nary contusion or re-expansion pulmonary edema seen. Heart and vasculature are normal. No pleural effusions seen. IMPRESSION: Chest tube remains in good position with no measurable pneumothorax. Anterior pneumothor ax can be occult on portable imaging. Right base atelectasis remains. No pulmonary contusion or pulmonary edema.
[2021-05-17] MEDS ORDERED: HOME MED 1 EA UNK (Sulfasalazine [Sulfasalazine] 500 MG Tablet) PO SCH (09:00)
[2021-05-17] MEDS ORDERED: FOLIC ACID 800 MCG PO SCH (09:00)
[2021-05-17] MEDS ORDERED: SULFASALAZINE 500 MG E.C. TAB PO SCH (09:00)
[2021-05-17] MEDS: predniSONE 5 MG TAB PO SCH (09:12)
[2021-05-17] MEDS: FOLIC ACID 1 MG TABLET PO SCH (09:13)
[2021-05-17] MEDS: ASPIRIN EC 81 MG TAB PO SCH (09:13)
[2021-05-17] MEDS: METOPROLOL TAR 50 MG TAB PO SCH ×2 (09:13→20:24)
[2021-05-17] MEDS: ATORVASTATIN 40 MG TAB PO SCH (09:17)
--- NOTE | 2021-05-17 11:03 | P.PN ---
Subjective Date of Service: 05/17/21 Chief Complaint: Pneumothorax with respiratory distress Subjective: Improving Physical Examination - Vital Signs Temperature: 97.9 F Blood Pressure: 110/71 Pulse: 91 Respirations: 18 Pulse Ox (%): 94 - Physical Exam General: Alert, In no apparent distress, Cooperative Respiratory: Clear to auscultation bilaterally, Normal air movement, Other (RIGHT chest tube in place, no air leak) Assessment And Plan - Current Problems (Diagnosis) (1) Pneumothorax Current Visit: Yes Status: Acute Plan: - Chest tube to water seal, follow up chest x-ray in 6 hours - recheck chest x-ray in AM, if improved, consider DC if pain well controlled and respiratory function improved - incetive spirometry
[2021-05-17 12:09] VITALS: O2SAT 93
--- NOTE | 2021-05-17 16:59 | RAD REPORT ---
EXAM DESCRIPTION: RAD - Chest Single View - 05/17/2021 4:18 pm CLINICAL HISTORY: chest tube to water seal COMPARISON: May 17 TECHNIQUE: AP portable chest image was obtained 05/17/2021 4:18 pm . FINDINGS: No measurable pneumothorax. Anterior pneumothorax can be occult on portable imaging. No significant change in position of the chest tube. The tip in the medial right hemithorax slightly more superior in position but there is been no retraction along the course of the tubing. No new parenchymal finding. Heart and vasculature are normal. No pleural effusions seen. No acute bon y abnormality seen. No acute aortic findings suspected. IMPRESSION: Tip of the chest tube in the medial right hemithorax is slightly more superior than sheldon ier the day but no retraction along the course of the tubing has occurred. No new or progressive pneumothorax findings.
[2021-05-17] MEDS: SULFASALAZINE 500 MG E.C. TAB PO SCH (20:43)
[2021-05-18] MEDS: NA CHLORIDE 0.9% 1,000 ML IV SCH ×2 (00:56→08:52)
--- NOTE | 2021-05-18 02:45 | P.PN ---
Subjective Date of Service: 05/17/21 Patient is doing much better. Chest tube discontinued from wall suctioning. Repeat chest x-ray did not show pneumothorax. Anticipate removing chest tube in a.m. per General surgery recommendations. Possible discharge tomorrow if patient does not have a pneumothorax. Review of Systems 10-point ROS is otherwise unremarkable Physical Examination - Vital Signs Temperature: 98.3 F Blood Pressure: 129/71 Pulse: 75 Respirations: 18 Pulse Ox (%): 95 - Physical Exam General: Alert, In no apparent distress, Oriented x3 Respiratory: Diminished, Expiratory wheezes Cardiovascular: Regular rate/rhythm, Normal S1 S2, No murmurs Gastrointestinal: Normal bowel sounds, Soft and benign, Non-distended, No tenderness Musculoskeletal: No clubbing, No swelling, No tenderness Neurological: Sensation intact, Cranial nerves 3-12 intact - Studies Medications List Reviewed: Yes Assessment & Plan - Problems (Diagnosis) (1) Fall Current Visit: Yes Status: Acute (2) Closed rib fracture Current Visit: Yes Status: Acute (3) Pneumothorax Current Visit: Yes Status: Acute (4) CAD (coronary artery disease) Current Visit: Yes Status: Acute (5) PAD (peripheral artery disease) Current Visit: Yes Status: Acute (6) COPD (chronic obstructive pulmonary disease) Current Visit: No Status: Acute - Plan Plan: 1. Chest tube management per surgery 2. Outpatient Pulmonary follow-up 3. Repeat chest x-ray in a.m. 4. Continue with treatment for is COPD 5. Continue with management of his atherosclerotic disease 6. Pain control 7. Monitor oxygenation 8. Continue with neb treatments 9. GI and DVT prophylaxis Discharge Plan: Home Plan to discharge in: Greater than 2 days - Advance Directives Does patient have a Living Will: No Does patient have a Durable POA for Healthcare: No - Code Status/Comfort Care Code Status: Full Code Critical Care: No Time Spent Managing PTS Care (In Minutes): 35
[2021-05-18] MEDS: LEVOTHYROXINE SOD 0.125 MG TAB PO SCH (05:46)
[2021-05-18 06:37] LABS: Absolute Lymphocytes (CBC) 0.4 K/uL (0.7-4.9); Basophils % 0.5 % (0-1.3); Hematocrit 31.5 % (39.6-49.0); Lymphocytes % 8.7 % (15.3-44.8); MPV 7.8 fL (7.6-11.3); RBC Red Blood Cell Count 3.04 M/uL (4.33-5.43)
[2021-05-18 06:42] LABS: BUN Blood Urea Nitrogen 4 mg/dL (7-18); Bicarbonate 31 mmol/L (21-32); Glucose Level 93 mg/dL (74-106); Magnesium 2.2 mg/dL (1.8-2.4); Potassium 3.3 mmol/L (3.5-5.1); Sodium Level 140 mmol/L (136-145)
[2021-05-18] MEDS ORDERED: POTASSIUM 25 MEQ EFFERV TAB PO ONE (06:51)
--- NOTE | 2021-05-18 07:22 | RAD REPORT ---
EXAM DESCRIPTION: RAD - Chest Single View - 05/18/2021 7:02 am CLINICAL HISTORY: Chest Tube Placement, pneumothorax COMPARISON: May 17 TECHNIQUE: AP portable chest image was obtained 05/18/2021 7:02 am . FINDINGS: No change in positioning of the chest tube. Subcutaneous emphysema at insertion site has n ot changed. No measurable pneumothorax identified. Anterior pneumothorax can be occult on a portable examination. Lung parenchymal opacification has not changed. No new or progressive lung finding. Heart and vascula ture are normal. No measurable pleural effusion. IMPRESSION: Stable positioning of the chest tube from May 17 imaging. No measurable pneumothorax. Anterior pneumothorax can be occult on portable imaging.
[2021-05-18] MEDS: FOLIC ACID 1 MG TABLET PO SCH ×2 (08:51→08:53)
[2021-05-18] MEDS: ATORVASTATIN 40 MG TAB PO SCH (08:51)
[2021-05-18] MEDS: ASPIRIN EC 81 MG TAB PO SCH (08:51)
[2021-05-18] MEDS: predniSONE 5 MG TAB PO SCH (08:51)
[2021-05-18] MEDS: METOPROLOL TAR 50 MG TAB PO SCH (08:56)
[2021-05-18] MEDS: WARFARIN SODIUM 2.5 MG TAB PO SCH (09:00)
--- NOTE | 2021-05-18 10:44 | P.PN ---
Subjective Date of Service: 05/18/21 Chief Complaint: Pneumothorax with respiratory distress Subjective: Improving (no breathing difficulty, pain well controlled) Physical Examination - Vital Signs Temperature: 97.9 F Blood Pressure: 136/74 Pulse: 82 Respirations: 16 Pulse Ox (%): 99 - Physical Exam General: Alert, In no apparent distress, Cooperative Respiratory: Clear to auscultation bilaterally, Other (IS ~ 3000cc, Removed Chest tube now) - Studies Medications List Reviewed: Yes Assessment And Plan - Current Problems (Diagnosis) (1) Pneumothorax Current Visit: Yes Status: Acute Plan: - Chest tube removed, check chest x ray in 2 hours, if no pneumothorax, DC home from surgical standpoint with pain control and incentive spirometry - incetive spirometry
[2021-05-18] MEDS: SULFASALAZINE 500 MG E.C. TAB PO SCH (11:42)
[2021-05-18 13:20] LABS: Protime INR 1.04
--- NOTE | 2021-05-18 14:19 | RAD REPORT ---
EXAM DESCRIPTION: RAD - Chest Single View - 05/18/2021 1:50 pm CLINICAL HISTORY: removal of chest tube COMPARISON: Portable chest May 18 TECHNIQUE: AP portable chest image was obtained 05/18/2021 1:50 pm . FINDINGS: Right-sided chest tube has been removed. No recurrent pneumothorax seen on this examinatio n. It is possible for an anterior pneumothorax to be present an occult on a portable examination. Sma ll amount of subcutaneous emphysema remains on the right. No new or progressive lung parenchymal process. No pulmonary edema. Heart and vasculature are stable. IMPRESSION: Right-side chest tube has been removed. No identifiable pneumothorax.
--- NOTE | 2021-05-18 14:59 | P.DS ---
Admission Date: 05/16/21 Discharge Date: 05/18/21 Primary Care Provider: Mina Gaines Disposition: ROUTINE DISCHARGE Discharge Condition: GOOD Reason for Admission: Pneumothorax with respiratory distress Consultations: Surgery-Dr. Rossi Pulmonary-Dr. Kay Procedures: COVID: Negative CT scan: COMPARISON: No relevant prior studies available. FINDINGS: CHEST: Lungs: Severe emphysematous changes in the lungs with an upper lung predominance. Pleural space: Large right pneumothorax with associated consolidation or a telectasis. The mediastinum is shifted to the left. No significant effusion. Heart: Unremarkable. No cardiomegaly. No significant pericardial effusion. Mediastinum: 4.5 cm hiatal hernia. ABDOMEN: Liver: Unremarkable. No mass. Gallbladder and bile ducts: Unremarkable. No calcified stones. No ductal dilation. Pancreas: Unremarkable. No ductal dilation. No mass. Spleen: Unremarkable. No splenomegaly. Adrenals: Unremarkable. No mass. Kidneys and ureters: 1.3 cm simple cyst in the left kidney. ACR White Paper guidelines (Herts, et al. JACR 2018; 15(2):264-273) suggest no follow-up is necessary. No hydronephrosis. No solid mass. Stomach and bowel: Scattered colonic diverticula. No obstruction. No mucosal thickening. PELVIS: Appendix: No findings to suggest acute appendicitis. Bladder: Unremarkable. No mass. Reproductive: Unremarkable as visualized. CHEST, ABDOMEN and PELVIS: Intraperitoneal space: Unremarkable. No significant fluid collection. No free air. Bones/joints: 7th-9th and 11th right rib fractures. Multilevel disc space narrowing with degenerative endplate changes in the lumbar spine. No dislocation. Soft tissues: Unremarkable. Vasculature: Scattered atherosclerotic vascular calcifications. 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 Lymph nodes: Unremarkable. No enlarged lymph nodes. IMPRESSION: 1. 7th-9th and 11th right rib fractures. 2. Large right pneumothorax with associated consolidation or atelectasis. The mediastinum is shifted to the left. 3. Severe emphysematous changes in the lungs with an upper lung predominance. 4. 4.5 cm hiatal hernia. Surgery: Date of Procedure: 05/16/2021 Surgeon: Blue Rossi MD Preoperative Diagnosis: Right tension pneumothorax. Postoperative Diagnosis: Right tension pneumothorax. Procedure Performed: Placement of right thoracostomy tube. Anesthesia: 1% lidocaine used. Estimated Blood Loss: Less than 5 cc. Specimen: None. Findings: Large amount of air return. Minimal blood returned. Complications: None. Drains: 20-[place] Thal chest tube placed in the right mid axillary line. Removal of Chest tube 05/18/2021 Follow up CXR: COMPARISON: Portable chest May 18 TECHNIQUE: AP portable chest image was obtained 05/18/2021 1:50 pm . FINDINGS: Right-sided chest tube has been removed. No recurrent pneumothorax seen on this examination. It is possible for an anterior pneumothorax to be present an occult on a portable examination. Small amount of subcutaneous emphysema remains on the right. No new or progressive lung parenchymal process. No pulmonary edema. Heart and vasculature are stable. IMPRESSION: Right-side chest tube has been removed. No identifiable pneumothorax. Medical problem list: Fall with right tension pneumothorax status post chest tube placement with removal Seventh through ninth and 11th right rib fractures Severe COPD on chronic oxygen and steroid Hypertension Rheumatoid arthritis Hyperlipidemia History of DVT on Coumadin GERD with hiatal hernia Hypothyroidism Brief History of Present Illness: 66-year-old male presented after a fall. He injured 3 lower ribs. Patient with history of pneumothorax. Chest x-ray showed right-sided tension pneumothorax. Chest tube was placed in the emergency room. Patient was admit blue for further treatment. Hospital Course: Patient presented after a fall. Patient was found to have a right tension pneumothorax. Patient required hospitalization. Patient was seen and evaluated by surgery in the emergency room. Chest tube was placed. Patient was admitted for further evaluation. Patient also found to have seventh through ninth and 11th rib right fracture. Patient did well during the course of his stay. Chest tube was removed. Repeat chest x-ray shows resolution of pneumothorax. No further intervention required. Patient will be discharged home. Patient will continue with home oxygen as directed. Patient will follow up with surgery within 1 week to follow-up his hospitalization. Education on pneumothorax provided. Patient with severe COPD on chronic oxygen and steroid. Patient will continue with his current regimen of medication including prednisone 7.5 mg daily and albuterol 2 puffs 3 times a day as needed for shortness of breath. Patient will continue with home oxygen to maintain sats above 93%. Patient with hypertension. At discharge patient will continue with his medication including metoprolol 50 mg 1 pill twice daily. Recommend to maintain blood pressure less than 130/80. Further adjustment can be done by his PCP. Patient with rheumatoid arthritis on chronic steroid. At discharge patient will continue with his medication including prednisone 7.5 mg daily and methotrexate 15 mg every week. Patient also takes folic acid 1 mg daily and Flexeril daily as needed for muscle spasm. Other medication includes sulfasalazine 500 mg daily. Patient with GERD. CT scan shows hiatal hernia. At discharge recommend to continue Protonix 40 mg daily. Patient with history of hyperlipidemia. At discharge patient will continue with Lipitor 40 mg daily. Patient with history of DVTs in the past on Coumadin. Patient will continue with his Coumadin regimen. Patient follows his PCP in [facility]. Recommend to recheck INR in 1 to 2 weeks to monitor his progress. Further adjustment can be done by his PCP. Patient with hypothyroidism. Patient will continue with his medication levothyroxine 125 mcg daily. Vital Signs/Physical Exam: Temp Pulse Resp BP Pulse Ox 97.9 F 82 16 136/74 99 05/18/21 10:44 05/18/21 10:44 05/18/21 10:44 05/18/21 10:44 05/18/21 10:44 General: Alert, In no apparent distress, Oriented x3, Cooperative HEENT: Atraumatic Neck: Supple Respiratory: Clear to auscultation bilaterally Cardiovascular: Normal pulses, Regular rate/rhythm Gastrointestinal: Normal bowel sounds, W/out splenomegaly, No ascites Musculoskeletal: No erythema, No tenderness, No warmth Integumentary: No tenderness/swelling Neurological: Normal speech, Normal strength at 5/5 x4 extr, Normal tone Laboratory Data at Discharge: WBC 4.90 K/uL (4.3-10.9) D 05/18/21 05:56 Hgb 10.6 g/dL (13.6-17.9) L 05/18/21 05:56 Hct 31.5 % (39.6-49.0) L 05/18/21 05:56 Plt Count 121 K/uL (152-406) L 05/18/21 05:56 PT 12.0 SECONDS (9.5-12.5) 05/18/21 12:40 INR 1.04 05/18/21 12:40 Sodium 140 mmol/L (136-145) 05/18/21 05:56 Potassium 4.2 mmol/L (3.5-5.1) 05/18/21 12:40 BUN 4 mg/dL (7-18) L 05/18/21 05:56 Creatinine 0.59 mg/dL (0.55-1.3) 05/18/21 05:56 Glucose 93 mg/dL (74-106) 05/18/21 05:56 Magnesium 2.2 mg/dL (1.8-2.4) 05/18/21 05:56 Total Bilirubin 1.6 mg/dL (0.2-1.0) H 05/17/21 05:12 AST 71 U/L (15-37) H 05/17/21 05:12 ALT 47 U/L (12-78) 05/17/21 05:12 Alkaline Phosphatase 199 U/L (45-117) H 05/17/21 05:12 Home Medications: Aspirin [Aspirin EC 81 MG] 81 mg PO DAILY 02/20/21 Atorvastatin Calcium [Lipitor] 40 mg PO DAILY 02/20/21 Cyclobenzaprine [Flexeril*] 10 mg PO DAILYPRN PRN 02/20/21 Folic Acid 800 mcg PO DAILY 02/20/21 Levothyroxine [Synthroid*] 125 mcg PO DAILY 02/20/21 Methotrexate [Methotrexate*] 15 mg PO EVERY 7TH DAY 02/20/21 Metoprolol Tartrate [Lopressor*] 50 mg PO BID 02/20/21 Warfarin Sodium [Coumadin*] 2.5 mg PO DAILY 02/20/21 predniSONE [Prednisone*] 7.5 mg PO DAILY 02/20/21 sulfaSALAzine [Sulfasalazine] 500 mg PO DAILY 02/20/21 Albuterol Inhaler [Ventolin Inhaler*] 2 puff IH TID PRN #1 [id number] 02/23/21 Pantoprazole [Protonix Tab] 40 mg PO DAILY #30 tab 05/18/21 New Medications: Pantoprazole [Protonix Tab] 40 mg PO DAILY #30 tab Physician Discharge Instructions: Patient presented after a fall. Patient was found to have a right tension pneumothorax. Patient required hospitalization. Patient was seen and evaluated by surgery in the emergency room. Chest tube was placed. Patient was admitted for further evaluation. Patient also found to have seventh through ninth and 11th rib right fracture. Patient did well during the course of his stay. Chest tube was removed. Repeat chest x-ray shows resolution of pneumothorax. No further intervention required. Patient will be discharged home. Patient will continue with home oxygen as directed. Patient will follow up with surgery within 1 week to follow-up his hospitalization. Education on pneumothorax provided. Patient with severe COPD on chronic oxygen and steroid. Patient will continue with his current regimen of medication including prednisone 7.5 mg daily and albuterol 2 puffs 3 times a day as needed for shortness of breath. Patient will continue with home oxygen to maintain sats above 93%. Patient with hypertension. At discharge patient will continue with his medication including metoprolol 50 mg 1 pill twice daily. Recommend to maintain blood pressure less than 130/80. Further adjustment can be done by his PCP. Patient with rheumatoid arthritis on chronic steroid. At discharge patient will continue with his medication including prednisone 7.5 mg daily and methotrexate 15 mg every week. Patient also takes folic acid 1 mg daily and Flexeril daily as needed for muscle spasm. Other medication includes sulfasalazine 500 mg daily. Patient with GERD. CT scan shows hiatal hernia. At discharge recommend to continue Protonix 40 mg daily. Patient with history of hyperlipidemia. At discharge patient will continue with Lipitor 40 mg daily. Patient with history of DVTs in the past on Coumadin. Patient will continue with his Coumadin regimen. Patient follows his PCP in [facility]. Recommend to recheck INR in 1 to 2 weeks to monitor his progress. Further adjustment can be done by his PCP. Patient with hypothyroidism. At discharge patient will continue with levothyroxine 125 mcg daily. Diet: AHA Activity: Ad blanca Followup: NONE,NONE [Primary Care Provider] - Time spent managing pt's care (in minutes): 55
[2021-05-18 15:01] VITALS: BP 116/65; TEMP 97.6
[2021-05-22] MEDS ORDERED: METHOTREXATE 2.5 MG TAB PO SCH (09:00)
--- NOTE | 2021-05-22 13:42 | RAD REPORT ---
EXAM DESCRIPTION: ERICKAChest Single View05/20/2021 4:12 pm CLINICAL HISTORY: Shortness breath COMPARISON: February 2021 FINDINGS: The examination is being submitted to me today for interpretation. Large right pneumothorax is present. The physicians on duty were aware of this and a chest tube was p romptly placed. Several right rib fractures
== END 2021-05-18 16:47 | disposition home or self-care (01) | DRG 200 ==
LOC: ER 03:02 → ERHOLD 08:22 → 2ND 09:43
PROVIDERS: ADMIT Hospitalist; ATTEND Hospitalist
PROC: 0W9900Z Drainage of Right Pleural Cavity with Drainage Device, Open Approach (ICD-10-PCS; principal; 2021-05-16)
DX: J93.0 Spontaneous tension pneumothorax (principal); S22.41XA Multiple fractures of ribs, right side, initial encounter for closed fracture; R06.03 Acute respiratory distress; J44.9 Chronic obstructive pulmonary disease, unspecified; I10 Essential (primary) hypertension; M06.9 Rheumatoid arthritis, unspecified; E78.5 Hyperlipidemia, unspecified; K21.9 Gastro-esophageal reflux disease without esophagitis; K44.9 Diaphragmatic hernia without obstruction or gangrene; I73.9 Peripheral vascular disease, unspecified; E03.9 Hypothyroidism, unspecified; W18.30XA Fall on same level, unspecified, initial encounter; Y92.9 Unspecified place or not applicable; Z79.01 Long term (current) use of anticoagulants; Z86.718 Personal history of other venous thrombosis and embolism; Z99.81 Dependence on supplemental oxygen; Z20.822 Contact with and (suspected) exposure to COVID-19; Z79.52 Long term (current) use of systemic steroids
CPT/HCPCS: 36415; 71045; 71260; 74177; 80048; 80053; 80076; 82565; 82805; 83605; 83735; 83880; 84132; 84145; 84484; 85025; 85379; 85610; 86140; 86850; 86900; 86901; 87040; 93005; 94010; 96360; 96361; 99285; J2270; J7030; J7512; Q9967; U0003

== ENCOUNTER 2022-09-19 05:18 | Inpatient (IN) | payer OTHER ==
--- OUTSIDE RECORDS SUMMARY | 2022-09-19 05:34 | XMS REPORT | Continuity of Care Document ---
:1955 Author Organization [facility] t Address [address] [place] [address] Care Team Providers Name Role Phone AMANDA CORONA Primary Care Physician Unavailable PAVAN ROSENTHAL Attending Clinician Unavailable Jen Harden Attending Clinician Marizol Mahajan MD Attending Clinician Pob, [facility] Main Attending Clinician Unavailable Amanda Pineda Attending Clinician AMANDA CORONA Attending Clinician Unavailable Doctor Unassigned, [place] Attending Clinician Unavailable ROZ MILNER Attending Clinician Unavailable Roz Milner MD Attending Clinician 2, [facility] Attending Clinician Unavailable Lab, [facility] Fam Pob I Attending Clinician Unavailable Payers Payer Name Policy Type Policy Number Effective Date Expiration Date S darrell [employer] MEDICARE [id number] 2020 00:00:00 Problems Condition Condition Condition Status Onset Resolution Last Treating Co mments Source Name Details Category Date Date Treatment Clinician Date Essential Essential Disease Active Uni vers hypertensi hypertensi 3-10 it y of on on 00:00: [place] [address] Medical Branch Mixed Mixed Disease Active Univers hyperlipid hyperlipid 3-10 it y of emia emia 00:00: [place] [address] Medical Branch Rheumatoid Rheumatoid Disease Active U nivers arthritis arthritis 3-10 [place] multiple multiple 00 Medica l sites sites Branch 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 3-10 it y of (DVT) of (DVT) of 00:00: [place] lower lower 00 Medical extremity extremity Bran ch Allergies, Adverse Reactions, Alerts Allergy Allergy Status Severity Reaction(s) Onset Inactive Treating Comm ents Source Name Type Date Date Clinician NO KNOWN Drug Active Univers ALLERGIE Class ity of S [facility] Social History Social Habit Start Date Stop Date Quantity Comments Source Exposure to Not sure [facility] SARS-CoV-2 (event) [facility] Cigarettes smoked 2020-10-28 2020-10-28 Univers ity of current (pack per 00:00:00 00:00:00 [facility] ed) - Reported Branch Cigarette 2020-10-28 2020-10-28 University of pack-years 00:00:00 00:00:00 [facility] Tobacco use and 2020-10-28 2020-10-28 Never used Universit y of exposure 00:00:00 00:00:00 [facility] Alcohol intake 2020-10-28 2020-10-28 Current drinker Unive rsity of 00:00:00 00:00:00 of alcohol [facility] (finding) [place] Alcohol Comment 2020-10-15 2020-10-15 6-7 beers/day Univer sity of 00:00:00 00:00:00 [facility] History of tobacco 2017-09-07 Cigarette Smoker University of use 00:00:00 [facility] Sex Ass[birth year] Universit y of 00:00:00 00:00:00 [facility] Smoking Status Start Date Stop Date Source Former smoker 2020-10-28 00:00:00 2020-10-28 00:00:00 Universi ty of [facility] Medications Ordered Filled Start Stop Current Ordering Indication Dosage Frequency Signature Comments Components Source Medication Medication Date Date Medication? Clinician (SIG) Name Name atorvastati 2020- 40mg Take 40 mg Univers n 40 mg 4-20 04-20 by mouth ity of tablet 19:30: 00:00 at [place] 05 :00 bedtime. Medical Branch atorvastati Yes [id number] 40mg Take 1 Univers n 40 mg 4-20 tablet by ity of tablet 00:00: mouth at [place] 00 bedtime. Medical Branch atorvastati Yes [id number] 40mg Take 1 Univers n 40 mg 4-20 tablet by ity of tablet 00:00: mouth at [place] [address] bedtime. Medical Branch atorvastati Yes [id number] 40mg Take 1 Univers n 40 mg 4-20 tablet by ity of tablet 00:00: mouth at [place] [address] bedtime. Medical Branch atorvastati Yes [id number] 40mg Take 1 Univers n 40 mg 4-20 tablet by ity of tablet 00:00: mouth at [place] [address] bedtime. Medical Branch atorvastati Yes [id number] 40mg Take 1 Univers n 40 mg 4-20 tablet by ity of tablet 00:00: mouth at [place] [address] bedtime. Medical Branch atorvastati Yes [id number] 40mg Take 1 Univers n 40 mg 4-20 tablet by ity of tablet 00:00: mouth at [place] [address] bedtime. Medical Branch atorvastati Yes [id number] 40mg Take 1 Univers n 40 mg 4-20 tablet by ity of tablet 00:00: mouth at [place] [address] bedtime. Medical Branch atorvastati Yes [id number] 40mg Take 1 Univers n 40 mg 4-20 tablet by ity of tablet 00:00: mouth at [place] [address] bedtime. Medical Branch atorvastati Yes [id number] 40mg Take 1 Univers n 40 mg 4-20 tablet by ity of tablet 00:00: mouth at [place] [address] bedtime. Medical Branch atorvastati Yes [id number] 40mg Take 1 Univers n 40 mg 4-20 tablet by ity of tablet 00:00: mouth at [place] [address] bedtime. Medical Branch predniSONE 2020-0 2020- No 10mg Take 10 mg Univers 10 mg 4-14 04-12 by mouth ity of tablet 13:43: 00:00 daily. [place] 00 :00 Medical Branch predniSONE 2020-0 Yes [id number] 10mg Take 1 Univers 10 mg 4-14 tablet by ity of tablet 00:00: mouth [place] 00 daily. Medical Branch predniSONE 2020-0 Yes [id number] 10mg Take 1 Univers 10 mg 4-14 tablet by ity of tablet 00:00: mouth [place] 00 daily. Medical Branch predniSONE 2020-0 Yes [id number] 10mg Take 1 Univers 10 mg 4-14 tablet by ity of tablet 00:00: mouth [place] 00 daily. [facility] Branch predniSONE 2020-0 Yes [id number] 10mg Take 1 Univers 10 mg 4-14 tablet by ity of tablet 00:00: mouth [place] 00 daily. [facility] Branch predniSONE 2020-0 Yes [id number] 10mg Take 1 Univers 10 mg 4-14 tablet by ity of tablet 00:00: mouth [place] 00 daily. [facility] Branch predniSONE 2020-0 Yes [id number] 10mg Take 1 Univers 10 mg 4-14 tablet by ity of tablet 00:00: mouth [place] 00 daily. [facility] Branch predniSONE 2020-0 Yes [id number] 10mg Take 1 Univers 10 mg 4-14 tablet by ity of tablet 00:00: mouth [place] 00 daily. [facility] Branch predniSONE 2020-0 Yes [id number] 10mg Take 1 Univers 10 mg 4-14 tablet by ity of tablet 00:00: mouth [place] 00 daily. [facility] predniSONE 2020-0 Yes [id number] 10mg Take 1 Univers 10 mg 4-14 tablet by ity of tablet 00:00: mouth [place] 00 daily. [facility] predniSONE 2020-0 Yes [id number] 10mg Take 1 Univers 10 mg 4-14 tablet by ity of tablet 00:00: mouth [place] 00 daily. [facility] predniSONE 2020-0 Yes [id number] 10mg Take 1 Univers 10 mg 4-14 tablet by ity of tablet 00:00: mouth [place] 00 daily. [facility] predniSONE 2020-0 Yes [id number] 10mg Take 1 Univers 10 mg 4-14 tablet by ity of tablet 00:00: mouth [place] 00 daily. [facility] predniSONE 1-0 Yes [id number] 10mg Take 1 Univers 10 mg 4-14 tablet by ity of tablet 00:00: mouth [place] 00 daily. [facility] Branch levothyroxi 2020-0 Yes [id number] 125ug Take 1 Univers ne 125 mcg 4-12 tablet by ity of tablet 00:00: mouth [place] 00 every Medical morning. Branch levothyroxi 2020-0 Yes [id number] 125ug Take 1 Univers ne 125 mcg 4-12 tablet by ity of tablet 00:00: mouth [place] 00 every Medical morning. Branch levothyroxi 2020-0 Yes [id number] 125ug Take 1 Univers ne 125 mcg 4-12 tablet by ity of tablet 00:00: mouth [place] 00 every Medical morning. Branch levothyroxi 0 Yes [id number] 125ug Take 1 Univers ne 125 mcg 4-12 tablet by ity of tablet 00:00: mouth [place] 00 every Medical morning. Branch levothyroxi 0 Yes [id number] 125ug Take 1 Univers ne 125 mcg 4-12 tablet by ity of tablet 00:00: mouth [place] 00 every Medical morning. Branch levothyroxi 0 Yes [id number] 125ug Take 1 Univers ne 125 mcg 4-12 tablet by ity of tablet 00:00: mouth [place] 00 every Medical morning. Branch levothyroxi 0 Yes [id number] 125ug Take 1 Univers ne 125 mcg 4-12 tablet by ity of tablet 00:00: mouth [place] 00 every Medical morning. Branch levothyroxi 0 Yes [id number] 125ug Take 1 Univers ne 125 mcg 4-12 tablet by ity of tablet 00:00: mouth [place] 00 every Medical morning. Branch levothyroxi 0 Yes [id number] 125ug Take 1 Univers ne 125 mcg 4-12 tablet by ity of tablet 00:00: mouth [place] 00 every Medical morning. Branch levothyroxi 0 Yes [id number] 125ug Take 1 Univers ne 125 mcg 4-12 tablet by ity of tablet 00:00: mouth [place] 00 every Medical morning. Branch levothyroxi 0 Yes [id number] 125ug Take 1 Univers ne 125 mcg 4-12 tablet by ity of tablet 00:00: mouth [place] 00 every Medical morning. Branch levothyroxi 0 Yes [id number] 125ug Take 1 Univers ne 125 mcg 4-12 tablet by ity of tablet 00:00: mouth [place] 00 every Medical morning. Branch levothyroxi 0 Yes [id number] 125ug Take 1 Univers ne 125 mcg 4-12 tablet by ity of tablet 00:00: mouth [place] 00 every Medical morning. Branch levothyroxi 0 Yes [id number] 125ug Take 1 Univers ne 125 mcg 4-12 tablet by ity of tablet 00:00: mouth [place] 00 every Medical morning. Branch levothyroxi 2020-0 Yes [id number] 125ug Take 1 Univers ne 125 mcg 4-12 tablet by ity of tablet 00:00: mouth [place] 00 every Medical morning. Branch levothyroxi 2021-0 Yes [id number] 125ug Take 1 Univers ne 125 mcg 4-12 tablet by ity of tablet 00:00: mouth [place] 00 every Medical morning. Branch metoprolol 2020- No Take by Uni vers succinate 3-23 -23 mouth ity of 50 mg CSpX 16:23: 00:00 daily. [facility] [place] 38 :00 [facility] metoprolol 2020- No Take by Uni vers succinate 3-23 -23 mouth ity of 50 mg CSpX 16:23: 00:00 daily. [facility] [place] 38 :00 [facility] metoprolol Yes [id number] 50mg Take 50 mg Univers succinate 3-23 by mouth ity of 50 mg CSpX 00:00: daily. [facility] metoprolol Yes [id number] 50mg Take 50 mg Univers succinate 3-23 by mouth ity of 50 mg CSpX 00:00: daily. [facility] metoprolol Yes [id number] 50mg Take 50 mg Univers succinate 3-23 by mouth ity of 50 mg CSpX 00:00: daily. [facility] METOPROLOL Yes [id number] TAKE 1 U nivers SUCCINATE 3-23 TABLET BY ity o f XL 50 mg 24 00:00: MOUTH ONCE [place] hr tablet 00 DAILY Medical Branch METOPROLOL Yes [id number] TAKE 1 U nivers SUCCINATE 3-23 TABLET BY ity o f XL 50 mg 24 00:00: MOUTH ONCE [place] hr tablet 00 DAILY Medical Branch METOPROLOL Yes [id number] TAKE 1 U nivers SUCCINATE 3-23 TABLET BY ity o f XL 50 mg 24 00:00: MOUTH ONCE [place] hr tablet 00 DAILY Medical Branch METOPROLOL Yes [id number] TAKE 1 U nivers SUCCINATE 3-23 TABLET BY ity o f XL 50 mg 24 00:00: MOUTH ONCE [place] hr tablet 00 DAILY Medical Branch METOPROLOL Yes [id number] TAKE 1 U nivers SUCCINATE 3-23 TABLET BY ity o f XL 50 mg 24 00:00: MOUTH ONCE [place] hr tablet 00 DAILY Medical Branch METOPROLOL Yes [id number] TAKE 1 U nivers SUCCINATE 3-23 TABLET BY ity o f XL 50 mg 24 00:00: MOUTH ONCE [place] hr tablet 00 DAILY Medical Branch METOPROLOL 0 Yes [id number] TAKE 1 U nivers SUCCINATE 3-23 TABLET BY ity o f XL 50 mg 24 00:00: MOUTH ONCE [place] hr tablet DAILY Medical Branch METOPROLOL 0 Yes [id number] TAKE 1 U nivers SUCCINATE 3-23 TABLET BY ity o f XL 50 mg 24 00:00: MOUTH ONCE [place] hr tablet DAILY Medical Branch METOPROLOL 0 Yes [id number] TAKE 1 U nivers SUCCINATE 3-23 TABLET BY ity o f XL 50 mg 24 00:00: MOUTH ONCE [place] hr tablet DAILY Medical Branch METOPROLOL Yes [id number] TAKE 1 U nivers SUCCINATE 3-23 TABLET BY ity o f XL 50 mg 24 00:00: MOUTH ONCE [place] hr tablet DAILY Medical Branch METOPROLOL Yes [id number] TAKE 1 U nivers SUCCINATE 3-23 TABLET BY ity o f XL 50 mg 24 00:00: MOUTH ONCE [place] hr tablet DAILY Medical Branch METOPROLOL 0 Yes [id number] TAKE 1 U nivers SUCCINATE 3-23 TABLET BY ity o f XL 50 mg 24 00:00: MOUTH ONCE [place] hr tablet DAILY Medical Branch METOPROLOL 0 Yes [id number] TAKE 1 U nivers SUCCINATE 3-23 TABLET BY ity o f XL 50 mg 24 00:00: MOUTH ONCE [place] hr tablet DAILY Medical Branch METOPROLOL 0 Yes [id number] TAKE 1 U nivers SUCCINATE 3-23 TABLET BY ity o f XL 50 mg 24 00:00: MOUTH ONCE [place] hr tablet DAILY Medical Branch METOPROLOL 0 Yes [id number] TAKE 1 U nivers SUCCINATE 3-23 TABLET BY ity o f XL 50 mg 24 00:00: MOUTH ONCE [place] hr tablet DAILY Medical Branch METOPROLOL 0 Yes [id number] TAKE 1 U nivers SUCCINATE 3-23 TABLET BY ity o f XL 50 mg 24 00:00: MOUTH ONCE [place] hr tablet DAILY Medical Branch METOPROLOL 0 Yes [id number] TAKE 1 U nivers SUCCINATE 3-23 TABLET BY ity o f XL 50 mg 24 00:00: MOUTH ONCE [place] hr tablet DAILY Medical Branch METOPROLOL 0 Yes [id number] TAKE 1 U nivers SUCCINATE 3-23 TABLET BY ity o f XL 50 mg 24 00:00: MOUTH ONCE [place] hr tablet 00 DAILY Medical Branch METOPROLOL Yes [id number] TAKE 1 U nivers SUCCINATE 3-23 TABLET BY ity o f XL 50 mg 24 00:00: MOUTH ONCE [place] hr tablet 00 DAILY Medical Branch METOPROLOL Yes [id number] TAKE 1 U nivers SUCCINATE 3-23 TABLET BY ity o f XL 50 mg 24 00:00: MOUTH ONCE [place] hr tablet 00 DAILY Medical Branch METOPROLOL 0 Yes [id number] TAKE 1 U nivers SUCCINATE 3-23 TABLET BY ity o f XL 50 mg 24 00:00: MOUTH ONCE [place] hr tablet 00 DAILY Medical Branch METOPROLOL Yes [id number] TAKE 1 U nivers SUCCINATE 3-23 TABLET BY ity o f XL 50 mg 24 00:00: MOUTH ONCE [place] hr tablet 00 DAILY Medical Branch METOPROLOL Yes [id number] TAKE 1 U nivers SUCCINATE 3-23 TABLET BY ity o f XL 50 mg 24 00:00: MOUTH ONCE [place] hr tablet 00 DAILY Medical Branch METOPROLOL Yes [id number] TAKE 1 U nivers SUCCINATE 3-23 TABLET BY ity o f XL 50 mg 24 00:00: MOUTH ONCE [place] hr tablet 00 DAILY Medical Branch metoprolol 2020- No [id number] 50mg Take 50 mg Univers succinate 3-23 03-23 by mouth ity o f 50 mg CSpX 00:00: 00:00 [place]. [place] :[place] Branch sulfaSALAzi 2020- No 500mg Take 500 Univers ne 500 mg 3-10 03-10 mg by ity of tablet 21:44: 00:00 mouth 4 [place] 14 :00 (four) Medical times Branch daily. sulfaSALAzi 2020- No 500mg Take 500 Univers ne 500 mg 3-10 03-10 mg by ity of tablet 21:44: 00:00 mouth 4 [place] 14 :00 (four) Medical times Branch daily. foLIC acid Yes 1mg Take 1 mg [place] 1 mg tablet 3-10 by mouth ity of 21:16: daily. [place] 45 Medical [place] predniSONE 0 Yes 10mg Take 10 mg U nivers 10 mg 3-10 by mouth ity of tablet 21:16: daily. [address] methotrexat 2020-0 Yes 2.5mg Take 2.5 U nivers e 2.5 mg 3-10 mg by ity of tablet 21:16: mouth once [address] warfarin 5 2020-0 Yes 5mg Take 5 mg Un [place] mg tablet 3-10 by mouth. ity o f 21:16: [address] warfarin 2020-0 Yes Take by Univer s 2.5 mg 3-10 mouth. ity of tablet 21:16: [address] aspirin 2020-0 Yes 81mg Take 81 mg Univ ers (ADULT LOW 3-10 by mouth ity o f DOSE 21:16: daily. [place] ASPIRIN) 81 45 Medical mg EC Branch tablet atorvastati 0 Yes 40mg Take 40 mg Univers n 40 mg 3-10 by mouth ity of tablet 21:16: at [place] [address] bedtime. [facility] Branch cyclobenzap 0 Yes 10mg Take 10 mg Univers rine 10 mg 3-10 by mouth ity o f tablet 21:16: daily. [address] metoprolol 0 Yes Take by Univ ers succinate 3-10 mouth ity of 50 mg CSpX 21:16: daily. [address] foLIC acid 0 Yes 1mg Take 1 mg Un [place] 1 mg tablet 3-10 by mouth ity of 21:16: daily. [address] predniSONE 2020-0 Yes 10mg Take 10 mg U nivers 10 mg 3-10 by mouth ity of tablet 21:16: daily. [address] methotrexat 2020-0 Yes 2.5mg Take 2.5 U nivers e 2.5 mg 3-10 mg by ity of tablet 21:16: mouth once [address] warfarin 5 2020-0 Yes 5mg Take 5 mg Un [place] mg tablet 3-10 by mouth. ity o f 21:16: [address] warfarin 2020-0 Yes Take by Univer s 2.5 mg 3-10 mouth. ity of tablet 21:16: [address] aspirin 2020-0 Yes 81mg Take 81 mg Univ ers (ADULT LOW 3-10 by mouth ity o f DOSE 21:16: daily. [place] ASPIRIN) 81 45 Medical mg EC Branch tablet atorvastati 0 Yes 40mg Take 40 mg Univers n 40 mg 3-10 by mouth ity of tablet 21:16: at [place] [address] bedtime. Medical Branch cyclobenzap 0 Yes 10mg Take 10 mg Univers rine 10 mg 3-10 by mouth ity o f tablet 21:16: daily. [address] Branch metoprolol 0 Yes Take by Univ ers succinate 3-10 mouth ity of 50 mg CSpX 21:16: daily. [address] Branch foLIC acid 0 Yes 1mg Take 1 mg Un [place] 1 mg tablet 3-10 by mouth ity of 21:16: daily. [address] Branch predniSONE 0 Yes 10mg Take 10 mg U nivers 10 mg 3-10 by mouth ity of tablet 21:16: daily. [address] Branch methotrexat 0 Yes 2.5mg Take 2.5 U nivers e 2.5 mg 3-10 mg by ity of tablet 21:16: mouth once [place] [address] now Medical Mears warfarin 5 0 Yes 5mg Take 5 mg Un [place] mg tablet 3-10 by mouth. ity o f 21:16: [address] warfarin 0 Yes Take by Univer s 2.5 mg 3-10 mouth. ity of tablet 21:16: [address] aspirin 0 Yes 81mg Take 81 mg Univ ers (ADULT LOW 3-10 by mouth ity o f DOSE 21:16: daily. [place] ASPIRIN) 81 45 Medical mg EC Branch tablet atorvastati Yes 40mg Take 40 mg Univers n 40 mg 3-10 by mouth ity of tablet 21:16: at [place] [address] bedtime. Medical Branch cyclobenzap 0 Yes 10mg Take 10 mg Univers rine 10 mg 3-10 by mouth ity o f tablet 21:16: daily. [address] Branch metoprolol 0 Yes Take by Univ ers succinate 3-10 mouth ity of 50 mg CSpX 21:16: daily. [address] foLIC acid 2020-0 Yes 1mg Take 1 mg Un [place] 1 mg tablet 3-10 by mouth ity of 21:16: daily. [address] predniSONE 2020-0 Yes 10mg Take 10 mg U nivers 10 mg 3-10 by mouth ity of tablet 21:16: daily. [address] methotrexat 0 Yes 2.5mg Take 2.5 U nivers e 2.5 mg 3-10 mg by ity of tablet 21:16: mouth once [address] warfarin 5 0 Yes 5mg Take 5 mg Un [place] mg tablet 3-10 by mouth. ity o f 21:16: [address] warfarin 2020-0 Yes Take by Univer s 2.5 mg 3-10 mouth. ity of tablet 21:16: [address] aspirin 2020-0 Yes 81mg Take 81 mg Univ ers (ADULT LOW 3-10 by mouth ity o f DOSE 21:16: daily. [place] ASPIRIN) 81 45 Medical mg EC Branch tablet atorvastati 0 Yes 40mg Take 40 mg Univers n 40 mg 3-10 by mouth ity of tablet 21:16: at [place] [address] bedtime. [facility] Branch cyclobenzap 0 Yes 10mg Take 10 mg Univers rine 10 mg 3-10 by mouth ity o f tablet 21:16: daily. [address] metoprolol 0 Yes Take by Univ ers succinate 3-10 mouth ity of 50 mg CSpX 21:16: daily. [address] foLIC acid 0 Yes 1mg Take 1 mg Un [place] 1 mg tablet 3-10 by mouth ity of 21:16: daily. [address] predniSONE 2020-0 Yes 10mg Take 10 mg U nivers 10 mg 3-10 by mouth ity of tablet 21:16: daily. [address] methotrexat 0 Yes 2.5mg Take 2.5 U nivers e 2.5 mg 3-10 mg by ity of tablet 21:16: mouth once [address] warfarin 5 0 Yes 5mg Take 5 mg Un [place] mg tablet 3-10 by mouth. ity o f 21:16: [address] warfarin 2020-0 Yes Take by Univer s 2.5 mg 3-10 mouth. ity of tablet 21:16: [address] aspirin 2020-0 Yes 81mg Take 81 mg Univ ers (ADULT LOW 3-10 by mouth ity o f DOSE 21:16: daily. [place] ASPIRIN) 81 45 Medical mg EC Branch tablet atorvastati 2020-0 Yes 40mg Take 40 mg Univers n 40 mg 3-10 by mouth ity of tablet 21:16: at [place] [address] bedtime. Medical Branch cyclobenzap 2020-0 Yes 10mg Take 10 mg Univers rine 10 mg 3-10 by mouth ity o f tablet 21:16: daily. [address] foLIC acid 2020-0 Yes 1mg Take 1 mg Un [place] 1 mg tablet 3-10 by mouth ity of 21:16: daily. [address] predniSONE 2020-0 Yes 10mg Take 10 mg U nivers 10 mg 3-10 by mouth ity of tablet 21:16: daily. [address] methotrexat 0 Yes 2.5mg Take 2.5 U nivers e 2.5 mg 3-10 mg by ity of tablet 21:16: mouth once [address] warfarin 5 0 Yes 5mg Take 5 mg Un [place] mg tablet 3-10 by mouth. ity o f 21:16: [address] warfarin 2020-0 Yes Take by Univer s 2.5 mg 3-10 mouth. ity of tablet 21:16: [address] aspirin 2020-0 Yes 81mg Take 81 mg Univ ers (ADULT LOW 3-10 by mouth ity o f DOSE 21:16: daily. [place] ASPIRIN) 81 45 Medical mg Branch tablet atorvastati 2020-0 Yes 40mg Take 40 mg Univers n 40 mg 3-10 by mouth ity of tablet 21:16: at [place] [address] bedtime. [facility] Branch cyclobenzap 2020-0 Yes 10mg Take 10 mg Univers rine 10 mg 3-10 by mouth ity o f tablet 21:16: daily. [address] foLIC acid 2020-0 Yes 1mg Take 1 mg [place] 1 mg tablet 3-10 by mouth ity of 21:16: daily. [address] predniSONE 2020-0 Yes 10mg Take 10 mg U nivers 10 mg 3-10 by mouth ity of tablet 21:16: daily. [address] methotrexat 2020-0 Yes 2.5mg Take 2.5 U nivers e 2.5 mg 3-10 mg by ity of tablet 21:16: mouth once [place] 45 now Medical Branch warfarin 5 2020-0 Yes 5mg Take 5 mg Un [place] mg tablet 3-10 by mouth. ity o f 21:16: [address] warfarin 2020-0 Yes Take by Univer s 2.5 mg 3-10 mouth. ity of tablet 21:16: [address] aspirin 2020-0 Yes 81mg Take 81 mg Univ ers (ADULT LOW 3-10 by mouth ity o f DOSE 21:16: daily. [place] ASPIRIN) 81 45 Medical mg EC Branch tablet atorvastati 2020-0 Yes 40mg Take 40 mg Univers n 40 mg 3-10 by mouth ity of tablet 21:16: at [place] [address] bedtime. Medical Branch cyclobenzap 2020-0 Yes 10mg Take 10 mg Univers rine 10 mg 3-10 by mouth ity o f tablet 21:16: daily. [address] foLIC acid 2020-0 Yes 1mg Take 1 mg [place] 1 mg tablet 3-10 by mouth ity of 21:16: daily. [address] predniSONE 2020-0 Yes 10mg Take 10 mg U nivers 10 mg 3-10 by mouth ity of tablet 21:16: daily. [address] methotrexat 2020-0 Yes 2.5mg Take 2.5 U nivers e 2.5 mg 3-10 mg by ity of tablet 21:16: mouth once [address] warfarin 5 2020-0 Yes 5mg Take 5 mg Un [place] mg tablet 3-10 by mouth. ity o f 21:16: [address] warfarin 2020-0 Yes Take by Univer s 2.5 mg 3-10 mouth. ity of tablet 21:16: [address] aspirin 2020-0 Yes 81mg Take 81 mg Univ ers (ADULT LOW 3-10 by mouth ity o f DOSE 21:16: daily. [place] ASPIRIN) 81 45 Medical mg EC Branch tablet atorvastati 2020-0 Yes 40mg Take 40 mg Univers n 40 mg 3-10 by mouth ity of tablet 21:16: at [place] [address] bedtime. Medical Branch cyclobenzap 2020-0 Yes 10mg Take 10 mg Univers rine 10 mg 3-10 by mouth ity o f tablet 21:16: daily. [address] foLIC acid 2020-0 Yes 1mg Take 1 mg [place] 1 mg tablet 3-10 by mouth ity of 21:16: daily. [address] predniSONE 2020-0 Yes 10mg Take 10 mg U nivers 10 mg 3-10 by mouth ity of tablet 21:16: daily. [address] Branch methotrexat 2020-0 Yes 2.5mg Take 2.5 U nivers e 2.5 mg 3-10 mg by ity of tablet 21:16: mouth once [address] warfarin 5 2020-0 Yes 5mg Take 5 mg Un [place] mg tablet 3-10 by mouth. ity o f 21:16: [address] warfarin 2020-0 Yes Take by Univer s 2.5 mg 3-10 mouth. ity of tablet 21:16: [address] aspirin 2020-0 Yes 81mg Take 81 mg Univ ers (ADULT LOW 3-10 by mouth ity o f DOSE 21:16: daily. [place] ASPIRIN) 81 45 [facility] Branch tablet atorvastati 0 Yes 40mg Take 40 mg Univers n 40 mg 3-10 by mouth ity of tablet 21:16: at [place] [address] bedtime. [facility] Branch cyclobenzap 2020-0 Yes 10mg Take 10 mg Univers rine 10 mg 3-10 by mouth ity o f tablet 21:16: daily. [address] foLIC acid 2020-0 Yes 1mg Take 1 mg [place] 1 mg tablet 3-10 by mouth ity of 21:16: daily. [address] predniSONE 2020-0 Yes 10mg Take 10 mg U nivers 10 mg 3-10 by mouth ity of tablet 21:16: daily. [address] methotrexat 2020-0 Yes 2.5mg Take 2.5 U nivers e 2.5 mg 3-10 mg by ity of tablet 21:16: mouth once [address] warfarin 5 2020-0 Yes 5mg Take 5 mg [place] mg tablet 3-10 by mouth. ity o f 21:16: [address] warfarin 2020-0 Yes Take by Univer s 2.5 mg 3-10 mouth. ity of tablet 21:16: [address] aspirin 2020-0 Yes 81mg Take 81 mg Univ ers (ADULT LOW 3-10 by mouth ity o f DOSE 21:16: daily. [place] ASPIRIN) 81 45 Medical mg EC Branch tablet atorvastati 2020-0 Yes 40mg Take 40 mg Univers n 40 mg 3-10 by mouth ity of tablet 21:16: at [place] [address] bedtime. Medical Branch cyclobenzap 2020-0 Yes 10mg Take 10 mg Univers rine 10 mg 3-10 by mouth ity o f tablet 21:16: daily. [address] foLIC acid 2020-0 Yes 1mg Take 1 mg [place] 1 mg tablet 3-10 by mouth ity of 21:16: daily. [address] predniSONE 2020-0 Yes 10mg Take 10 mg U nivers 10 mg 3-10 by mouth ity of tablet 21:16: daily. [address] methotrexat 2020-0 Yes 2.5mg Take 2.5 U nivers e 2.5 mg 3-10 mg by ity of tablet 21:16: mouth once [address] warfarin 5 2020-0 Yes 5mg Take 5 mg [place] mg tablet 3-10 by mouth. ity o f 21:16: [address] warfarin 2020-0 Yes Take by Univer s 2.5 mg 3-10 mouth. ity of tablet 21:16: [address] aspirin 2020-0 Yes 81mg Take 81 mg Univ ers (ADULT LOW 3-10 by mouth ity o f DOSE 21:16: daily. [place] ASPIRIN) 81 45 Medical mg EC Branch tablet atorvastati 2020-0 Yes 40mg Take 40 mg [facility] n 40 mg 3-10 by mouth ity of tablet 21:16: at [place] [address] bedtime. Medical Branch cyclobenzap 2020-0 Yes 10mg Take 10 mg [facility] rine 10 mg 3-10 by mouth ity o f tablet 21:16: daily. [address] foLIC acid 2020-0 Yes 1mg Take 1 mg [facility] [place] 1 mg tablet 3-10 by mouth ity of 21:16: daily. [address] predniSONE 2020-0 Yes 10mg Take 10 mg U nivers 10 mg 3-10 by mouth ity of tablet 21:16: daily. [address] methotrexat 2020-0 Yes 2.5mg Take 2.5 U nivers e 2.5 mg 3-10 mg by ity of tablet 21:16: mouth once [address] warfarin 5 2020-0 Yes 5mg Take 5 mg [facility] [place] mg tablet 3-10 by mouth. ity o f 21:16: [address] warfarin 2020-0 Yes Take by Un[facility] s 2.5 mg 3-10 mouth. ity of tablet 21:16: [address] aspirin 2020-0 Yes 81mg Take 81 mg [facility] ers (ADULT LOW 3-10 by mouth ity o f DOSE 21:16: daily. [place] ASPIRIN) 81 45 Medical mg EC Branch tablet atorvastati 2020-0 Yes 40mg Take 40 mg [facility] n 40 mg 3-10 by mouth ity of tablet 21:16: at [place] [address] bedtime. Medical Branch cyclobenzap 2020-0 Yes 10mg Take 10 mg [facility] 10 mg 3-10 by mouth ity o f tablet 21:16: daily. [address] foLIC acid 2020-0 Yes 1mg Take 1 mg [facility] [place] 1 mg tablet 3-10 by mouth ity of 21:16: daily. [address] predniSONE 2020-0 Yes 10mg Take 10 mg [facility] 10 mg 3-10 by mouth ity of tablet 21:16: daily. [address] methotrexat 2020-0 Yes 2.5mg Take 2.5 U nivers e 2.5 mg 3-10 mg by ity of tablet 21:16: mouth once [address] warfarin 5 2020-0 Yes 5mg Take 5 mg [facility] [place] mg tablet 3-10 by mouth. ity o f 21:16: [address] warfarin 2020-0 Yes Take by Unive rs 2.5 mg 3-10 mouth. ity of tablet 21:16: [address] aspirin 2020-0 Yes 81mg Take 81 mg [facility] ers (ADULT LOW 3-10 by mouth ity o f DOSE 21:16: daily. [place] ASPIRIN) 81 45 Medical mg EC Branch tablet atorvastati 2020-0 Yes 40mg Take 40 mg [facility] n 40 mg 3-10 by mouth ity of tablet 21:16: at [place] [address] bedtime. Medical Branch cyclobenzap 2020-0 Yes 10mg Take 10 mg [facility] r[facility] 10 mg 3-10 by mouth ity o f tablet 21:16: daily. [address] foLIC acid 2020-0 Yes 1mg Take 1 mg [facility] [place] 1 mg tablet 3-10 by mouth ity of 21:16: daily. [address] predniSONE 2020-0 Yes 10mg Take 10 mg U nivers 10 mg 3-10 by mouth ity of tablet 21:16: daily. [address] Branch methotrexat 2020-0 Yes 2.5mg Take 2.5 U nivers e 2.5 mg 3-10 mg by ity of tablet 21:16: mouth once [address] Branch warfarin 5 2020-0 Yes 5mg Take 5 mg [facility] [place] mg tablet 3-10 by mouth. ity o f 21:16: [address] warfarin 2020-0 Yes Take by Univer s 2.5 mg 3-10 mouth. ity of tablet 21:16: [address] aspirin 2020-0 Yes 81mg Take 81 mg [facility] ers (ADULT LOW 3-10 by mouth ity o f DOSE 21:16: daily. [place] ASPIRIN) [facility] Branch tablet atorvastati 0 Yes 40mg Take 40 mg [facility] n 40 mg 3-10 by mouth ity of tablet 21:16: at [place] [address] bedtime. [facility] Branch cyclobenzap 2020-0 Yes 10mg Take 10 mg [facility] rine 10 mg 3-10 by mouth ity o f tablet 21:16: daily. [address] foLIC acid 2020-0 Yes 1mg Take 1 mg [place] 1 mg tablet 3-10 by mouth ity of 21:16: daily. [address] predniSONE 2020-0 Yes 10mg Take 10 mg U nivers 10 mg 3-10 by mouth ity of tablet 21:16: daily. [address] methotrexat 2020-0 Yes 2.5mg Take 2.5 U nivers e 2.5 mg 3-10 mg by ity of tablet 21:16: mouth once [address] warfarin 5 2020-0 Yes 5mg Take 5 mg [place] mg tablet 3-10 by mouth. ity o f 21:16: [address] warfarin 2020-0 Yes Take by Univer s 2.5 mg 3-10 mouth. ity of tablet 21:16: [address] aspirin 2020-0 Yes 81mg Take 81 mg [facility] ers (ADULT LOW 3-10 by mouth ity o f DOSE 21:16: daily. [place] ASPIRIN) 81 45 Medical mg EC Branch tablet atorvastati 2020-0 Yes 40mg Take 40 mg [facility] n 40 mg 3-10 by mouth ity of tablet 21:16: at [place] [address] bedtime. Medical Branch cyclobenzap 2020-0 Yes 10mg Take 10 mg [facility] 10 mg 3-10 by mouth ity o f tablet 21:16: daily. [address] foLIC acid 2020-0 Yes 1mg Take 1 mg [place] 1 mg tablet 3-10 by mouth ity of 21:16: daily. [address] predniSONE 2020-0 Yes 10mg Take 10 mg [facility] nivers 10 mg 3-10 by mouth ity of tablet 21:16: daily. [address] Branch methotrexat 2020-0 Yes 2.5mg Take 2.5 U nivers e 2.5 mg 3-10 mg by ity of tablet 21:16: mouth once [address] warfarin 5 2020-0 Yes 5mg Take 5 mg [place] mg tablet 3-10 by mouth. ity o f 21:16: [address] warfarin 2020-0 Yes Take by [facility] s 2.5 mg 3-10 mouth. ity of tablet 21:16: [address] aspirin 2020-0 Yes 81mg Take 81 mg [facility] ers (ADULT LOW 3-10 by mouth ity o f DOSE 21:16: daily. [place] ASPIRIN) 81 45 Medical mg EC Branch tablet atorvastati 2020-0 Yes 40mg Take 40 mg [facility] n 40 mg 3-10 by mouth ity of tablet 21:16: at [place] [address] bedtime. Medical Branch cyclobenzap 2020-0 Yes 10mg Take 10 mg [facility] r[facility] 10 mg 3-10 by mouth ity o f tablet 21:16: daily. [address] foLIC acid 2020-0 Yes 1mg Take 1 mg [place] 1 mg tablet 3-10 by mouth ity of 21:16: daily. [address] predniSONE 2020-0 Yes 10mg Take 10 mg [facility] nivers 10 mg 3-10 by mouth ity of tablet 21:16: daily. [address] methotrexat 2020-0 Yes 2.5mg Take 2.5 U nivers e 2.5 mg 3-10 mg by ity of tablet 21:16: mouth once [address] warfarin 5 2020-0 Yes 5mg Take 5 mg [place] mg tablet 3-10 by mouth. ity o f 21:16: [address] warfarin 2020-0 Yes Take by Univer s 2.5 mg 3-10 mouth. ity of tablet 21:16: [address] aspirin 2020-0 Yes 81mg Take 81 mg [facility] ers (ADULT LOW 3-10 by mouth ity o f DOSE 21:16: daily. [place] ASPIRIN) 81 45 Medical mg EC Branch tablet atorvastati 2020-0 Yes 40mg Take 40 mg [facility] n 40 mg 3-10 by mouth ity of tablet 21:16: at [place] [address] bedtime. Medical Branch cyclobenzap 2020-0 Yes 10mg Take 10 mg [facility] r[facility] 10 mg 3-10 by mouth ity o f tablet 21:16: daily. [address] foLIC acid 2020-0 Yes 1mg Take 1 mg [place] 1 mg tablet 3-10 by mouth ity of 21:16: daily. [address] predniSONE 2020-0 Yes 10mg Take 10 mg [facility] nivers 10 mg 3-10 by mouth ity of tablet 21:16: daily. [address] methotrexat 2020-0 Yes 2.5mg Take 2.5 U nivers e 2.5 mg 3-10 mg by ity of tablet 21:16: mouth once [address] warfarin 5 2020-0 Yes 5mg Take 5 mg [place] mg tablet 3-10 by mouth. ity o f 21:16: [address] warfarin 2020-0 Yes Take by Univer s 2.5 mg 3-10 mouth. ity of tablet 21:16: [address] aspirin 2020-0 Yes 81mg Take 81 mg Univ ers (ADULT LOW 3-10 by mouth ity o f DOSE 21:16: daily. [place] ASPIRIN) 81 45 Medical mg EC Branch tablet atorvastati 2020-0 Yes 40mg Take 40 mg Univers n 40 mg 3-10 by mouth ity of tablet 21:16: at [place] [address] bedtime. [facility] Branch cyclobenzap 2020-0 Yes 10mg Take 10 mg [facility] rine 10 mg 3-10 by mouth ity o f tablet 21:16: daily. [address] foLIC acid 2021-0 Yes 1mg Take 1 mg [place] 1 mg tablet 3-10 by mouth ity of 21:16: daily. [address] predniSONE 2020-0 Yes 10mg Take 10 mg U nivers 10 mg 3-10 by mouth ity of tablet 21:16: daily. [address] Branch methotrexat 0 Yes 2.5mg Take 2.5 U nivers e 2.5 mg 3-10 mg by ity of tablet 21:16: mouth once [address] warfarin 5 0 Yes 5mg Take 5 mg [facility] [place] mg tablet 3-10 by mouth. ity o f 21:16: [address] warfarin 2020-0 Yes Take by Univer s 2.5 mg 3-10 mouth. ity of tablet 21:16: [address] aspirin 0 Yes 81mg Take 81 mg Univ ers (ADULT LOW 3-10 by mouth ity o f DOSE 21:16: daily. [place] ASPIRIN) 81 45 Medical mg Branch tablet atorvastati 0 Yes 40mg Take 40 mg [facility] n 40 mg 3-10 by mouth ity of tablet 21:16: at [place] [address] bedtime. Medical Branch cyclobenzap Yes 10mg Take 10 mg [facility] r[facility] 10 mg 3-10 by mouth ity o f tablet 21:16: daily. [address] foLIC acid 0 Yes 1mg Take 1 mg [place] 1 mg tablet 3-10 by mouth ity of 21:16: daily. [address] methotrexat Yes 2.5mg Take 2.5 U nivers e 2.5 mg 3-10 mg by ity of tablet 21:16: mouth once [address] warfarin 5 Yes 5mg Take 5 mg [place] mg tablet 3-10 by mouth. ity o f 21:16: [address] warfarin 2020-0 Yes Take by Univer s 2.5 mg 3-10 mouth. ity of tablet 21:16: [address] aspirin 2020-0 Yes 81mg Take 81 mg [facility] ers (ADULT LOW 3-10 by mouth ity o f DOSE 21:16: daily. [place] ASPIRIN) 81 45 Medical mg Branch tablet atorvastati 0 Yes 40mg Take 40 mg [facility] n 40 mg 3-10 by mouth ity of tablet 21:16: at [place] [address] bedtime. Medical Branch cyclobenzap 2020-0 Yes 10mg Take 10 mg [facility] rine 10 mg 3-10 by mouth ity o f tablet 21:16: daily. [address] Branch foLIC acid 2020-0 Yes 1mg Take 1 mg [place] 1 mg tablet 3-10 by mouth ity of 21:16: daily. [address] Branch methotrexat 2020-0 Yes 2.5mg Take 2.5 U nivers e 2.5 mg 3-10 mg by ity of tablet 21:16: mouth once [address] Medical Branch warfarin 5 2020-0 Yes 5mg Take 5 mg [place] mg tablet 3-10 by mouth. ity o f 21:16: [address] warfarin 2020-0 Yes Take by Univer s 2.5 mg 3-10 mouth. ity of tablet 21:16: [address] Branch aspirin 2020-0 Yes 81mg Take 81 mg [facility] ers (ADULT LOW 3-10 by mouth ity o f DOSE 21:16: daily. [place] ASPIRIN) 81 45 Medical mg EC Branch tablet cyclobenzap 2020-0 Yes 10mg Take 10 mg [facility] r[facility] 10 mg 3-10 by mouth ity o f tablet 21:16: daily. [address] Branch foLIC acid 2020-0 Yes 1mg Take 1 mg [place] 1 mg tablet 3-10 by mouth ity of 21:16: daily. [address] Branch methotrexat 2020-0 Yes 2.5mg Take 2.5 U nivers e 2.5 mg 3-10 mg by ity of tablet 21:16: mouth once [address] Branch warfarin 5 2020-0 Yes 5mg Take 5 mg [place] mg tablet 3-10 by mouth. ity o f 21:16: [address] warfarin 2020-0 Yes Take by Univer s 2.5 mg 3-10 mouth. ity of tablet 21:16: [address] Branch aspirin 2020-0 Yes 81mg Take 81 mg Univ ers (ADULT LOW 3-10 by mouth ity o f DOSE 21:16: daily. [place] ASPIRIN) 81 45 Medical mg EC Branch tablet cyclobenzap 2020-0 Yes 10mg Take 10 mg [facility] rine 10 mg 3-10 by mouth ity o f tablet 21:16: daily. [address] foLIC acid 2020-0 Yes 1mg Take 1 mg [place] 1 mg tablet 3-10 by mouth ity of 21:16: daily. [address] methotrexat 2020-0 Yes 2.5mg Take 2.5 U nivers e 2.5 mg 3-10 mg by ity of tablet 21:16: mouth once [address] warfarin 5 2020-0 Yes 5mg Take 5 mg [place] mg tablet 3-10 by mouth. ity o f 21:16: [address] warfarin 2020-0 Yes Take by Univer s 2.5 mg 3-10 mouth. ity of tablet 21:16: [address] aspirin 2020-0 Yes 81mg Take 81 mg Univ ers (ADULT LOW 3-10 by mouth ity o f DOSE 21:16: daily. [place] ASPIRIN) 81 45 Medical mg EC Branch tablet cyclobenzap 2020-0 Yes 10mg Take 10 mg [facility] rine 10 mg 3-10 by mouth ity o f tablet 21:16: daily. [address] foLIC acid 2020-0 Yes 1mg Take 1 mg [place] 1 mg tablet 3-10 by mouth ity of 21:16: daily. [address] methotrexat 2020-0 Yes 2.5mg Take 2.5 U nivers e 2.5 mg 3-10 mg by ity of tablet 21:16: mouth once [address] warfarin 5 2020-0 Yes 5mg Take 5 mg [place] mg tablet 3-10 by mouth. ity o f 21:16: [address] warfarin 2020-0 Yes Take by Univer s 2.5 mg 3-10 mouth. ity of tablet 21:16: [address] aspirin 2020-0 Yes 81mg Take 81 mg Univ ers (ADULT LOW 3-10 by mouth ity o f DOSE 21:16: daily. [place] ASPIRIN) 81 45 Medical mg EC Branch tablet cyclobenzap 1-0 Yes 10mg Take 10 mg [facility] rine 10 mg 3-10 by mouth ity o f tablet 21:16: daily. [address] foLIC acid 1-0 Yes 1mg Take 1 mg [place] 1 mg tablet 3-10 by mouth ity of 21:16: daily. [address] methotrexat 1-0 Yes 2.5mg Take 2.5 U nivers e 2.5 mg 3-10 mg by ity of tablet 21:16: mouth once [address] warfarin 5 2020-0 Yes 5mg Take 5 mg [place] mg tablet 3-10 by mouth. ity o f 21:16: [address] warfarin 2020-0 Yes Take by Univer s 2.5 mg 3-10 mouth. ity of tablet 21:16: [address] aspirin 1-0 Yes 81mg Take 81 mg Univ ers (ADULT LOW 3-10 by mouth ity o f DOSE 21:16: daily. [place] ASPIRIN) 81 45 Medical mg EC Branch tablet cyclobenzap 2020-0 Yes 10mg Take 10 mg [facility] r[facility] 10 mg 3-10 by mouth ity o f tablet 21:16: daily. [address] foLIC acid 2020-0 Yes 1mg Take 1 mg [place] 1 mg tablet 3-10 by mouth ity of 21:16: daily. [address] methotrexat 2020-0 Yes 2.5mg Take 2.5 U nivers e 2.5 mg 3-10 mg by ity of tablet 21:16: mouth once [address] warfarin 5 2020-0 Yes 5mg Take 5 mg [place] mg tablet 3-10 by mouth. ity o f 21:16: [address] warfarin 2020-0 Yes Take by Univer s 2.5 mg 3-10 mouth. ity of tablet 21:16: [address] aspirin 1-0 Yes 81mg Take 81 mg Univ ers (ADULT LOW 3-10 by mouth ity o f DOSE 21:16: daily. [place] ASPIRIN) 81 45 Medical mg EC Branch tablet cyclobenzap 2020-0 Yes 10mg Take 10 mg [facility] rine 10 mg 3-10 by mouth ity o f tablet 21:16: daily. [address] foLIC acid 2021-0 Yes 1mg Take 1 mg [place] 1 mg tablet 3-10 by mouth ity of 21:16: daily. [address] methotrexat 1-0 Yes 2.5mg Take 2.5 U nivers e 2.5 mg 3-10 mg by ity of tablet 21:16: mouth once [address] warfarin 5 2020-0 Yes 5mg Take 5 mg [place] mg tablet 3-10 by mouth. ity o f 21:16: [address] warfarin 2020-0 Yes Take by Univer s 2.5 mg 3-10 mouth. ity of tablet 21:16: [address] aspirin 2020-0 Yes 81mg Take 81 mg Univ ers (ADULT LOW 3-10 by mouth ity o f DOSE 21:16: daily. [place] ASPIRIN) 81 45 Medical mg EC Branch tablet cyclobenzap 2020-0 Yes 10mg Take 10 mg [facility] rine 10 mg 3-10 by mouth ity o f tablet 21:16: daily. [address] foLIC acid 2020-0 Yes 1mg Take 1 mg [place] 1 mg tablet 3-10 by mouth ity of 21:16: daily. [address] methotrexat 2020-0 Yes 2.5mg Take 2.5 U nivers e 2.5 mg 3-10 mg by ity of tablet 21:16: mouth once [address] warfarin 5 2020-0 Yes 5mg Take 5 mg [place] mg tablet 3-10 by mouth. ity o f 21:16: [address] warfarin 2020-0 Yes Take by Univer s 2.5 mg 3-10 mouth. ity of tablet 21:16: [address] aspirin 2020-0 Yes 81mg Take 81 mg Univ ers (ADULT LOW 3-10 by mouth ity o f DOSE 21:16: daily. [place] ASPIRIN) 81 45 Medical mg Branch tablet cyclobenzap 2020-0 Yes 10mg Take 10 mg [facility] rine 10 mg 3-10 by mouth ity o f tablet 21:16: daily. [address] foLIC acid 2020-0 Yes 1mg Take 1 mg [place] 1 mg tablet 3-10 by mouth ity of 21:16: daily. [address] methotrexat 2020-0 Yes 2.5mg Take 2.5 U nivers e 2.5 mg 3-10 mg by ity of tablet 21:16: mouth once [address] warfarin 5 2020-0 Yes 5mg Take 5 mg [place] mg tablet 3-10 by mouth. ity o f 21:16: [address] warfarin 2020-0 Yes Take by Univer s 2.5 mg 3-10 mouth. ity of tablet 21:16: [address] aspirin 2020-0 Yes 81mg Take 81 mg Univ ers (ADULT LOW 3-10 by mouth ity o f DOSE 21:16: daily. [place] ASPIRIN) 81 45 Medical mg EC Branch tablet cyclobenzap 2020-0 Yes 10mg Take 10 mg [facility] rine 10 mg 3-10 by mouth ity o f tablet 21:16: daily. [address] foLIC acid 2020-0 Yes 1mg Take 1 mg [place] 1 mg tablet 3-10 by mouth ity of 21:16: daily. [address] methotrexat 2020-0 Yes 2.5mg Take 2.5 U nivers e 2.5 mg 3-10 mg by ity of tablet 21:16: mouth once [address] warfarin 5 2020-0 Yes 5mg Take 5 mg [place] mg tablet 3-10 by mouth. ity o f 21:16: [address] warfarin 2020-0 Yes Take by Univer s 2.5 mg 3-10 mouth. ity of tablet 21:16: [address] aspirin 2020-0 Yes 81mg Take 81 mg Univ ers (ADULT LOW 3-10 by mouth ity o f DOSE 21:16: daily. [place] ASPIRIN) 81 45 Medical mg Branch tablet cyclobenzap 0 Yes 10mg Take 10 mg [facility] rine 10 mg 3-10 by mouth ity o f tablet 21:16: daily. [address] foLIC acid 2020-0 Yes 1mg Take 1 mg [place] 1 mg tablet 3-10 by mouth ity of 21:16: daily. [address] methotrexat 2020-0 Yes 2.5mg Take 2.5 U nivers e 2.5 mg 3-10 mg by ity of tablet 21:16: mouth once [address] warfarin 5 2020-0 Yes 5mg Take 5 mg [place] mg tablet 3-10 by mouth. ity o f 21:16: [address] warfarin 2020-0 Yes Take by Univer s 2.5 mg 3-10 mouth. ity of tablet 21:16: [address] aspirin 2020-0 Yes 81mg Take 81 mg Univ ers (ADULT LOW 3-10 by mouth ity o f DOSE 21:16: daily. [place] ASPIRIN) 81 45 Medical mg EC Branch tablet cyclobenzap 0 Yes 10mg Take 10 mg [facility] rine 10 mg 3-10 by mouth ity o f tablet 21:16: daily. [address] Branch foLIC acid 0 Yes 1mg Take 1 mg [place] 1 mg tablet 3-10 by mouth ity of 21:16: daily. [address] Branch methotrexat 0 Yes 2.5mg Take 2.5 U nivers e 2.5 mg 3-10 mg by ity of tablet 21:16: mouth once [place] [address] now Medical Branch warfarin 5 0 Yes 5mg Take 5 mg [place] mg tablet 3-10 by mouth. ity o f 21:16: [address] Branch warfarin 2020-0 Yes Take by Univer s 2.5 mg 3-10 mouth. ity of tablet 21:16: [address] Branch aspirin Yes 81mg Take 81 mg Univ ers (ADULT LOW 3-10 by mouth ity o f DOSE 21:16: daily. [place] ASPIRIN) 81 45 Medical mg EC Branch tablet atorvastati Yes 40mg Take 40 mg Univers n 40 mg 3-10 by mouth ity of tablet 21:16: at [place] [address] bedtime. Medical Branch cyclobenzap 0 Yes 10mg Take 10 mg [facility] rine 10 mg 3-10 by mouth ity o f tablet 21:16: daily. [address] Branch metoprolol 0 Yes Take by Univ ers succinate 3-10 mouth ity of 50 mg CSpX 21:16: daily. [address] Branch sulfaSALAzi 0 Yes [id number] 500mg Take 1 Univers ne 500 mg 3-10 tablet by ity o f tablet 00:00: mouth 2 [place] (two) Medical times [place] daily. clotrimazol 0 Yes [id number] Apply to Univers e 1 % 3-10 area(s) 2 ity of topical 00:00: (two) [place] cream 00 times Medical daily. Branch sulfaSALAzi Yes [id number] 500mg Take 1 Univers ne 500 mg 3-10 tablet by ity o f tablet 00:00: mouth 2 [place] 00 (two) Medical times Branch daily. clotrimazol 2020-0 Yes [id number] Apply to Univers e 1 % 3-10 area(s) 2 ity of topical 00:00: (two) [place] cream 00 times Medical daily. Branch sulfaSALAzi 1-0 Yes [id number] 500mg Take 1 Univers ne 500 mg 3-10 tablet by ity o f tablet 00:00: mouth 2 00 (two) Medical times Branch daily. clotrimazol 2021-0 Yes [id number] Apply to Univers e 1 % 3-10 area(s) 2 ity of topical 00:00: (two) [place] cream 00 times Medical daily. Branch sulfaSALAzi 2020-0 Yes [id number] 500mg Take 1 Univers ne 500 mg 3-10 tablet by ity o f tablet 00:00: mouth 2 (two) Medical times Branch daily. clotrimazol 2021-0 Yes [id number] Apply to Univers e 1 % 3-10 area(s) 2 ity of topical 00:00: (two) [place] cream 00 times Medical daily. Branch sulfaSALAzi 2020-0 Yes [id number] 500mg Take 1 Univers ne 500 mg 3-10 tablet by ity o f tablet 00:00: mouth 2 (two) Medical times Branch daily. clotrimazol 2021-0 Yes [id number] Apply to Univers e 1 % 3-10 area(s) 2 ity of topical 00:00: (two) [place] cream 00 times Medical daily. Branch sulfaSALAzi 1-0 Yes [id number] 500mg Take 1 Univers ne 500 mg 3-10 tablet by ity o f tablet 00:00: mouth 2 (two) Medical times Branch daily. clotrimazol 2021-0 Yes [id number] Apply to Univers e 1 % 3-10 area(s) 2 ity of topical 00:00: (two) [place] cream 00 times Medical daily. Branch sulfaSALAzi 1-0 Yes [id number] 500mg Take 1 Univers ne 500 mg 3-10 tablet by ity o f tablet 00:00: mouth 2 00 (two) Medical times Branch daily. clotrimazol 2021-0 Yes [id number] Apply to Univers e 1 % 3-10 area(s) 2 ity of topical 00:00: (two) [place] cream 00 times Medical daily. Branch sulfaSALAzi 2020-0 Yes [id number] 500mg Take 1 [facility] ne 500 mg 3-10 tablet by ity o f tablet 00:00: mouth 2 (two) Medical times Branch daily. clotrimazol 1-0 Yes [id number] Apply to Univers e 1 % 3-10 area(s) 2 ity of topical 00:00: (two) [place] cream 00 times Medical daily. Branch sulfaSALAzi 2020-0 Yes [id number] 500mg Take 1 Univers ne 500 mg 3-10 tablet by ity o f tablet 00:00: mouth 2 (two) Medical times Branch daily. clotrimazol 1-0 Yes [id number] Apply to Univers e 1 % 3-10 area(s) 2 ity of topical 00:00: (two) [place] cream 00 times Medical daily. Branch sulfaSALAzi 2020-0 Yes [id number] 500mg Take 1 Univers ne 500 mg 3-10 tablet by ity o f tablet 00:00: mouth 2 (two) Medical times Branch daily. clotrimazol 1-0 Yes [id number] Apply to Univers e 1 % 3-10 area(s) 2 ity of topical 00:00: (two) [place] cream 00 times Medical daily. Branch sulfaSALAzi 2020-0 Yes [id number] 500mg Take 1 Univers ne 500 mg 3-10 tablet by ity o f tablet 00:00: mouth 2 (two) Medical times Branch daily. clotrimazol 1-0 Yes [id number] Apply to Univers e 1 % 3-10 area(s) 2 ity of topical 00:00: (two) [place] cream 00 times Medical daily. Branch sulfaSALAzi 2020-0 Yes [id number] 500mg Take 1 [facility] ne 500 mg 3-10 tablet by ity o f tablet 00:00: mouth 2 (two) Medical times Branch daily. clotrimazol 2021-0 Yes [id number] Apply to Univers e 1 % 3-10 area(s) 2 ity of topical 00:00: (two) [place] cream 00 times Medical daily. Branch sulfaSALAzi 1-0 Yes [id number] 500mg Take 1 Univers ne 500 mg 3-10 tablet by ity o f tablet 00:00: mouth 2 (two) Medical times Branch daily. clotrimazol 2021-0 Yes [id number] Apply to Univers e 1 % 3-10 area(s) 2 ity of topical 00:00: (two) [place] cream 00 times Medical daily. Branch sulfaSALAzi 2020-0 Yes [id number] 500mg Take 1 [facility] ne 500 mg 3-10 tablet by ity o f tablet 00:00: mouth 2 (two) Medical times Branch daily. clotrimazol 1-0 Yes [id number] Apply to Univers e 1 % 3-10 area(s) 2 ity of topical 00:00: (two) [place] cream 00 times Medical daily. Branch sulfaSALAzi 1-0 Yes [id number] 500mg Take 1 [facility] ne 500 mg 3-10 tablet by ity o f tablet 00:00: mouth 2 (two) Medical times Branch daily. clotrimazol 1-0 Yes [id number] Apply to Univers e 1 % 3-10 area(s) 2 ity of topical 00:00: (two) [place] cream 00 times Medical daily. Branch sulfaSALAzi 2020-0 Yes [id number] 500mg Take 1 [facility] ne 500 mg 3-10 tablet by ity o f tablet 00:00: mouth 2 (two) Medical times Branch daily. clotrimazol 1-0 Yes [id number] Apply to Univers e 1 % 3-10 area(s) 2 ity of topical 00:00: (two) [place] cream 00 times Medical daily. Branch sulfaSALAzi 2020-0 Yes [id number] 500mg Take 1 Univers ne 500 mg 3-10 tablet by ity o f tablet 00:00: mouth 2 (two) Medical times Branch daily. clotrimazol 2021-0 Yes [id number] Apply to Univers e 1 % 3-10 area(s) 2 ity of topical 00:00: (two) [place] cream 00 times Medical daily. Branch sulfaSALAzi 1-0 Yes [id number] 500mg Take 1 [facility] ne 500 mg 3-10 tablet by ity o f tablet 00:00: mouth 2 (two) Medical times Branch daily. clotrimazol 2021-0 Yes [id number] Apply to Univers e 1 % 3-10 area(s) 2 ity of topical 00:00: (two) [place] cream 00 times Medical daily. Branch sulfaSALAzi 2020-0 Yes [id number] 500mg Take 1 Univers ne 500 mg 3-10 tablet by ity o f tablet 00:00: mouth 2 [place] 00 (two) Medical times Branch daily. clotrimazol 2020-0 Yes [id number] Apply to Univers e 1 % 3-10 area(s) 2 ity of topical 00:00: (two) [place] cream 00 times Medical daily. Branch sulfaSALAzi 2020-0 Yes [id number] 500mg Take 1 [facility] ne 500 mg 3-10 tablet by ity o f tablet 00:00: mouth 2 (two) Medical times Branch daily. clotrimazol 2020-0 Yes [id number] Apply to Univers e 1 % 3-10 area(s) 2 ity of topical 00:00: (two) [place] cream 00 times Medical daily. Branch sulfaSALAzi 2020-0 Yes [id number] 500mg Take 1 [facility] ne 500 mg 3-10 tablet by ity o f tablet 00:00: mouth 2 (two) Medical times Branch daily. clotrimazol 2020-0 Yes [id number] Apply to Univers e 1 % 3-10 area(s) 2 ity of topical 00:00: (two) [place] cream 00 times Medical daily. Branch sulfaSALAzi 2020-0 Yes [id number] 500mg Take 1 [facility] ne 500 mg 3-10 tablet by ity o f tablet 00:00: mouth 2 00 (two) Medical times Branch daily. clotrimazol 2020-0 Yes [id number] Apply to Univers e 1 % 3-10 area(s) 2 ity of topical 00:00: (two) [place] cream 00 times Medical daily. Branch sulfaSALAzi 2020-0 Yes [id number] 500mg Take 1 [facility] ne 500 mg 3-10 tablet by ity o f tablet 00:00: mouth 2 [place] 00 (two) Medical times Branch daily. clotrimazol 2020-0 Yes [id number] Apply to Univers e 1 % 3-10 area(s) 2 ity of topical 00:00: (two) [place] cream 00 times Medical daily. Branch sulfaSALAzi 2020-0 Yes [id number] 500mg Take 1 Univers ne 500 mg 3-10 tablet by ity o f tablet 00:00: mouth 2 (two) Medical times Branch daily. clotrimazol 1-0 Yes [id number] Apply to Univers e 1 % 3-10 area(s) 2 ity of topical 00:00: (two) [place] cream 00 times Medical daily. Branch sulfaSALAzi 2020-0 Yes [id number] 500mg Take 1 Univers ne 500 mg 3-10 tablet by ity o f tablet 00:00: mouth 2 00 (two) Medical times Branch daily. clotrimazol 2020-0 Yes [id number] Apply to Univers e 1 % 3-10 area(s) 2 ity of topical 00:00: (two) [place] cream 00 times Medical daily. Branch sulfaSALAzi 2020-0 Yes [id number] 500mg Take 1 Univers ne 500 mg 3-10 tablet by ity o f tablet 00:00: mouth 2 (two) Medical times Branch daily. clotrimazol 2020-0 Yes [id number] Apply to Univers e 1 % 3-10 area(s) 2 ity of topical 00:00: (two) [place] cream 00 times Medical daily. Branch sulfaSALAzi 2020-0 Yes [id number] 500mg Take 1 Univers ne 500 mg 3-10 tablet by ity o f tablet 00:00: mouth 2 (two) Medical times Branch daily. clotrimazol 1-0 Yes [id number] Apply to Univers e 1 % 3-10 area(s) 2 ity of topical 00:00: (two) [place] cream 00 times Medical daily. Branch sulfaSALAzi 2020-0 Yes [id number] 500mg Take 1 Univers ne 500 mg 3-10 tablet by ity o f tablet 00:00: mouth 2 (two) Medical times Branch daily. clotrimazol 2021-0 Yes [id number] Apply to Univers e 1 % 3-10 area(s) 2 ity of topical 00:00: (two) [place] cream 00 times Medical daily. Branch sulfaSALAzi 2020-0 Yes [id number] 500mg Take 1 Univers ne 500 mg 3-10 tablet by ity o f tablet 00:00: mouth 2 (two) Medical times Branch daily. clotrimazol 2020-0 Yes [id number] Apply to Univers e 1 % 3-10 area(s) 2 ity of topical 00:00: (two) [place] cream 00 times Medical daily. Branch sulfaSALAzi 2020-0 Yes [id number] 500mg Take 1 Univers ne 500 mg 3-10 tablet by ity o f tablet 00:00: mouth 2 00 (two) Medical times Branch daily. clotrimazol 2020-0 Yes [id number] Apply to Univers e 1 % 3-10 area(s) 2 ity of topical 00:00: (two) [place] cream 00 times Medical daily. Branch sulfaSALAzi 2020-0 Yes [id number] 500mg Take 1 Univers ne 500 mg 3-10 tablet by ity o f tablet 00:00: mouth 2 00 (two) Medical times Branch daily. clotrimazol 2020-0 Yes [id number] Apply to Univers e 1 % 3-10 area(s) 2 ity of topical 00:00: (two) [place] cream 00 times Medical daily. Branch sulfaSALAzi 0 Yes [id number] 500mg Take 1 Univers ne 500 mg 3-10 tablet by ity o f tablet 00:00: mouth 2 (two) Medical times [place] daily. clotrimazol 2020-0 Yes [id number] Apply to Univers e 1 % 3-10 area(s) 2 ity of topical 00:00: (two) [place] cream 00 times Medical daily. [place] Vital Signs Vital Name Observation Time Observation Value Comments Source Systolic blood 2020-10-28 16:08:00 146 mm[facility]Hg[facility] Diastolic blood 2020-10-28 16:08:00 89 mm[Hg] [facility] Heart rate 2020-10-28 16:08:00 86 /min [facility] Respiratory rate 2020-10-28 16:08:00 16 /min [facility] Body height 2020-10-28 16:08:00 182.9 cm [facility] Body weight 2020-10-28 16:08:00 86.183 kg [facility] BMI 2020-10-28 16:08:00 25.77 kg/m2 Universi ty [facility] Oxygen saturation in 2020-10-28 16:08:00 97 /min University of Arterial blood by [facility] Pulse oximetry Branch Systolic blood 2020-10-15 21:11:00 157 mm[Hg] Univer sity of pressure [facility] Diastolic blood 2020-10-15 21:11:00 95 mm[Hg] Unive rsity of pressure [facility] Heart rate 2020-10-15 21:10:00 79 /min Universi ty [facility] Body temperature 2020-10-15 21:10:00 36.72 Meghan [facility] Respiratory rate 2020-10-15 21:10:00 18 /min [facility] Body height 2020-10-15 21:10:[address] [facility] Body weight 2020-10-15 21:10:00 85.412 kg [facility] BMI 2020-10-15 21:10:00 25.54 kg/m2 Universi ty [facility] Oxygen saturation in 2020-10-15 21:10:00 95 /min University of Arterial blood by [facility] Pulse oximetry Branch Procedures Procedure Date / Time Performing Clinician Source Performed PROTHROMBIN TIME / INR 2021-03-23 16:31:00 Amanda Corona [facility] EXTERNAL PROVIDER 2021-02-24 05:01:00 Doctor Unassigned, No [facility] Medical [place] ASSIGNMENT OF BENEFITS 2020-12-09 15:30:37 Doctor Unassigned, No [facility] CONSENT/REFUSAL FOR 2020-11-11 17:13:42 Doctor Unassigned, No [facility] DIAGNOSIS AND TREATMENT [facility] Encounters Start End Encounter Admission Attending Care Care Encounter Source Date/Time Date/Time Type Type Clinicians Facility Department ID 2021-03-24 2021-03-24 Outpatient William ROSENTHAL [facility] [id number] Univers 16:15:00 16:15:[address] [facility] 2021-03-24 2021-03-24 Telephone Diana [facility] [id number] [facility] 00:00:00 00:00:00 Jen [facility] [id number] it y of [place] [id number] David as Professio [phone] [facility] [address] [facility] One 2021-03-24 2021-03-24 Telephone Marizol Mahajan [facility] [id number] Univers 00:00:00 00:00:00 Cam Ameena [id number] i [id number] [phone] Fl dical [facility] 2021-03-23 2021-03-23 Enrollment Nurse Adrian, [facility] Lab Main [facility] 1.2.8 40.114 [id number] Univers 11:18:37 11:33:37 Visit Amanda Corona [id number] [id number] [phone] [facility] [address] [facility] 2021-03-23 2021-03-23 Outpatient R CJ [facility] [id number] Univers 11:15:00 11:15:00 AMANDA bowers o f [facility] 2021-03-06 2021-03-06 Telephone [facility] [id number] Univers 00:00:00 00:00:00 Amandadee Lindquist [id number] [id number] [phone] [facility] [address] [facility] 2021-02-24 2021-02-24 Orders Doctor SHANA [id number] Univers 00:00:00 00:00:00 Only Unassigned, FRANK [id number] ity of [place] [facility] [id number] David as [phone] [address] 2020-12-09 2020-12-09 Outpatient R ALF [facility] [id number] Univers 11:15:00 11:15:[address] [facility] 2020-12-09 2020-12-09 Enrollment Nurse Adrian, Adc Lab Main [place] 1.2.8 40.114 [id number] Univers 10:30:01 10:45:01 Visit Roz Milner [id number] [id number] [phone] Fl dical nal [address] [facility] 2020-12-09 2020-12-09 Orders Doctor SHANA 1.2.840.114 [id number] Univers 00:00:00 00:00:00 Only Unassigned, FRANK [id number] ity of [place] [facility] [id number] David as [phone] [address] 2020-11-28 2020-11-28 Refill [facility] [id number] Univers 00:00:00 00:00:00 Amanda Lindquist [id number] [id number] [phone] Fl dical nal 0[address] [facility] 2020-11-25 2020-11-25 [facility] [id number] Univers 10:45:00 10:45:00 AMANDA bowers o f [facility] 2020-11-25 2020-11-25 Enrollment Nurse Adrian, Adc Lab Main [facility] 1.2.8 40.114 [id number] Univers 10:11:41 10:26:41 Visit Amanda Corona [id number] [id number] [phone] Fl dical nal [address] [facility] 2020-11-25 2020-11-25 Telephone [facility] 1.2.840.114 [id number] Univers 00:00:00 00:00:00 Amanda [facility] [id number] i ty of [place] [id number] David as Professio [phone] Fl dical [facility] [address] Building One 2020-11-24 2020-11-24 Telephone [facility] 1.2.840.114 [id number] Univers 00:00:00 00:00:00 Amanda [place] [id number] [id number] [phone] [address] 2020-11-17 2020-11-17 Refill [facility] 1.2.840.114 [id number] Univers 00:00:00 00:00:00 Amanda [place] [id number] [id number] [phone] [address] 2020-11-14 2020-11-14 Telephone [facility] 1.2.840.114 [id number] Univers 00:00:00 00:00:00 Amanda Health [id number] i ty of [place] [id number] [place] as Professio [phone] [address] 2020-11-14 2020-11-14 Telephone [facility] 1.2.840.114 [id number] Univers 00:00:00 00:00:00 Amanda Health [id number] i ty of [place] [id number] [place] as Professio [phone] [address] 2020-11-13 2020-11-13 Refill [facility] 1.2.840.114 [id number] Univers 00:00:00 00:00:00 Amanda [place] [id number] [id number] [place] [phone] [address] 2020-11-11 2020-11-11 Enrollment Nurse Lamin Campbell Lab Main [facility] 1.2.8 40.114 [id number] [facility] 12:14:55 12:29:55 Visit Amanda Corona [id number] [id number] [phone] [facility] [address] [facility] 2020-11-11 2020-11-11 [facility] [id number] Univers 12:15:00 12:15:00 AMANDA ity o f [facility] 2020-11-11 2020-11-11 Orders Doctor SHANA 1.2.840.114 [id number] Univers 00:00:00 00:00:00 Only Unassigned, FRANK [id number] ity of [place] [facility] [id number] David as [phone] [address] 2020-11-06 2020-11-06 Telephone [facility] 1.2.840.114 [id number] Univers 00:00:00 00:00:00 Amanda [facility] [id number] i ty of [place] [id number] [place] as Professio [phone] [address] Office [facility] One 2020-11-05 2020-11-05 Telephone [facility] 1.2.840.114 [id number] Univers 00:00:00 00:00:00 Amanda [place] [id number] [id number] [phone] [address] 2020-11-04 2020-11-04 [facility] [id number] Univers 09:15:00 09:15:00 AMANDA daedee o [facility] 2020-11-04 2020-11-04 Enrollment Nurse 2, Adc Lab [facility] 1.2.840.114 [id number] Univers 08:30:16 08:45:16 Visit Amanda Corona [id number] [id number] [phone] [address] 2020-10-28 2020-10-28 Enrollment Nurse Lab, Adc Fam Pob I [facility] 1.2. 840.114 [id number] Univers 11:35:50 11:55:50 Visit Amanda Corona [id number] ity of [place] [id number] David as Professio [phone] Fl dical nal 044 [facility] One 2020-10-28 2020-10-28 Office [facility] 1.2.840.114 [id number] Univers 10:58:41 11:27:00 Visit Amanda Dutta [id number] i ty of [place] [id number] David as Professio [phone] Fl dical nal [address] [facility] One 2020-10-28 2020-10-28 Outpatient R [facility] [id number] Univers 11:00:00 11:00:00 AMANDA trujillo [facility] 2020-10-28 2020-10-28 Refill [facility] 1.2.840.114 [id number] Univers 00:00:00 00:00:00 [facility] [id number] i ty of [place] [id number] David as Professio [phone] Fl dical nal 044 [facility] One 2020-10-20 2020-10-20 Telephone [facility] 1.2.840.114 [id number] Univers 00:00:00 00:00:00 Amanda Lindquist [id number] [id number] [phone] Fl dical nal 044 [facility] 2020-10-16 2020-10-16 Enrollment Nurse 2, Adc Lab [facility] 1.2.840.114 [id number] Univers 08:14:01 08:29:01 Visit Amanda Corona [id number] [id number] [phone] Fl dical nal [address] [facility] 2020-10-16 2020-10-16 Outpatient R [facility] [id number] Univers 08:00:00 08:00:00 AMANDA ity o [facility] 2020-10-16 2020-10-16 Telephone [facility] 1.2.840.114 [id number] [facility] 00:00:00 00:00:00 Amanda [facility] [id number] i jessica pollack [place] [id number] David as Professio [phone] [address] Office Building One 2020-10-15 2020-10-15 Outpatient R [facility] [id number] [facility] 15:00:00 15:54:04 AMANDA ity o f [facility] 2020-10-15 2020-10-15 Office [facility] 1.2.840.114 [id number] [facility] 14:45:19 15:54:04 Visit Amanda [place] [id number] [id number] [phone] [address] Results Test Description Test Time Test Comments Results Result Comments Source PROTHROMBIN TIME / INR 2021-03-23 16:48:56 Test Item Value Reference Range Interpretation Comme nts PROTIME PATIENT (test code = See_Comment H [Automated message] The system 5964-2) which generated this result transmitted ref erence range: 12.0 - 14.7 Sec onds. The reference range was not used to interpret this result as normal/abnormal . INR (test code = 6301-6) Nor mal INR <1.1; Warfarin Therapeutic ran ge 2.0 to 3.0 or 2.5 to 3.5, dep ending upon the indications. Lab Interpretation (test code Abnormal = 34092-3) [facility]
[2022-09-19] MEDS ORDERED: METHYLPREDNISOLONE 125 MG INJ ONE (05:39)
[2022-09-19 05:40] LABS: Hematocrit 37.5 % (39.6-49.0); MCV 94.7 fL (80-100); RBC Red Blood Cell Count 3.96 M/uL (4.33-5.43)
[2022-09-19] MEDS ORDERED: IPRATROPIUM BROM 0.5MG/2.5ML ONE ×2 (05:40→13:30)
[2022-09-19] MEDS ORDERED: ALBUTEROL 2.5 MG/3 ML NEB SOL ONE ×2 (05:40→13:30)
[2022-09-19 05:41] LABS: Absolute Lymphocytes (CBC) 0.4 K/uL (0.7-4.9); Lymphocytes % 5.9 % (15.3-44.8); MPV 7.4 fL (7.6-11.3)
[2022-09-19 06:03] LABS: Potassium 3.2 mmol/L (3.5-5.1); Troponin High Sensitivity 43.4 pg/mL (<58.9)
--- NOTE | 2022-09-19 07:16 | ER ---
Nurse's Notes [facility] Name: Raul Wilson Age: 67 yrs Sex: Male : 1955 Arrival Date: 09/19/2022 Time: 05:19 Bed 20 Private MD: Diagnosis: COPD/ Chronic obstructive pulmonary disease with (acute) exacerbation;Acute respiratory failure Presentation: 09/19 05:25 Chief complaint: EMS states: 67 year old male reports shortness of breath. on our ha1 arrival his oxygen saturation was at 72%. breathing treatment was given with albuterol and ipratropium. Coronavirus screen: Vaccine status: Patient reports receiving the 1st dose of the Covid vaccine. Adela. Ebola Screen: No symptoms or risks identified at this time. Initial Sepsis Screen: Does the patient meet any 2 criteria? No. Patient's initial sepsis screen is negative. Does the patient have a suspected source of infection? No. Patient's initial sepsis screen is negative. Risk Assessment: Do you want to hurt yourself or someone else? Patient reports no desire to harm self or others. Onset of symptoms was September 19, 2022. 05:25 Method Of Arrival: EMS: [facility] ha1 05:25 Acuity: SAMMI 3 ha1 Triage Assessment: 05:19 General: Appears uncomfortable, Behavior is cooperative. Pain: Denies pain. EENT: No ha1 signs and/or symptoms were reported regarding the EENT system. Neuro: Level of Consciousness is awake, alert, obeys commands, Oriented to person, place, time. Cardiovascular: Heart tones S1 S2 present Capillary refill < 3 seconds Patient's skin is warm and dry. Rhythm is sinus tachycardia. Respiratory: Reports shortness of breath at rest Airway is patent Respiratory effort is even, labored, Respiratory pattern is paradoxical, tachypnea Patient placed on BiPAP: Inspiratory Pressure: 9 Expiratory (EPAP) Pressure: 5 Onset: The symptoms/episode began/occurred suddenly, the patient has moderate shortness of breath. GI: No signs and/or symptoms were reported involving the gastrointestinal system. Abdomen is flat, non-distended. : No signs and/or symptoms were reported regarding the genitourinary system. Derm: Skin is fragile, Skin is diaphoretic, Skin is normal. 05:19 Musculoskeletal: Circulation, motion, and sensation intact. ha1 Historical: - Allergies: 05:19 No Known Allergies; ha1 - Home Meds: 05:19 aspirin 81 mg Oral tab 81 mg daily [Active]; atorvastatin 40 mg Oral tab 1 tab once ha1 daily [Active]; prednisone 5 mg Oral tab 1.5 tab once daily [Active]; 10:49 metoprolol tartrate 50 mg Oral tab 1 tab 2 times per day [Active]; warfarin 2.5 mg oral hb tab once daily [Active]; B12 Active oral daily [Active]; levothyroxine 150 mcg cap 1 cap once daily [Active]; sulfasalazine 500 mg Oral tab 1 tab twice daily [Active]; methotrexate sodium 15 mg Oral tab 1 tab once wkly [Active]; prednisone 7.5 mg Oral tab once daily [Active]; cyclobenzaprine 10 mg Oral tab as needed [Active]; Folic Acid Oral nightly [Active]; - PMHx: 05:19 COPD; DVT to alma delia legs; Hypercholesterolemia; Hypertensive disorder; RA; Thyroid problem;ha1 - PSHx: 05:19 neck; ha1 - Immunization history:: Adult Immunizations unknown. - Social history:: Smoking status: Patient/guardian denies using tobacco. Screenin:33 Abuse screen: Denies threats or abuse. Denies injuries from another. Nutritional ha1 screening: No deficits noted. Tuberculosis screening: No symptoms or risk factors identified. 06:03 [facility] ED Fall Risk Assessment (Adult). ha1 Assessment: 05:19 Reassessment: see triage assessment. ha1 05:19 Reassessment: on arrival by EMS pt. was on a nonrebreather. Respiratory therapy ha1 awaiting for patient in patient's room. pt. connected to Bi Pad. 05:19 Cardiovascular: Heart tones S1 S2 present. Respiratory: Airway is patent Respiratory ha1 effort is even, unlabored, Respiratory pattern is tachypnea. 06:18 Reassessment: Patient and/or family updated on plan of care and expected duration. Pain ha1 level reassessed. Patient is alert, oriented x 3, equal unlabored respirations, skin warm/dry/pink. Patient denies pain at this time. Patient states symptoms have improved. 07:11 Reassessment: Patient appears in no apparent distress at this time. Patient and/or hb family updated on plan of care and expected duration. Pain level reassessed. Pt on BiPAP, in no apparent distress. 08:28 Reassessment: RT at bedside for trial off BiPAP, placed on 2LNC. hb 09:30 Reassessment: Patient appears in no apparent distress at this time. No changes from hb previously documented assessment. Patient and/or family updated on plan of care and expected duration. Pain level reassessed. 10:20 Reassessment: Dr. Evans at bedside. hb 11:13 Reassessment: Patient appears in no apparent distress at this time. No changes from hb previously documented assessment. Patient and/or family updated on plan of care and expected duration. Pain level reassessed. Vital Signs: 05:25 BP 145 / 76; Pulse 110; Resp 29 S; Temp 97.8(T); Pulse Ox 100% on 15% Non-rebreather ha1 mask; 05:55 BP 127 / 78; Pulse 111; Resp 23; Pulse Ox 100% on 50% BiPAP; ha1 06:19 BP 104 / 64; Pulse 112; Resp 20 S; Pulse Ox 100% on 100% BiPAP; ha1 07:11 BP 113 / 83; Pulse 110; Resp 26; Pulse Ox 99% on 50% BiPAP; hb 08:32 BP 108 / 78; Pulse 110; Resp 18; Pulse Ox 94% on 2 lpm NC; hb 09:07 BP 102 / 58; Pulse 110; Resp 21; Pulse Ox 95% on 2 lpm NC; hb 09:45 BP 110 / 71; Pulse 86; Resp 18; Pulse Ox 93% on 2 lpm NC; hb 11:13 BP 99 / 75; Pulse 85; Resp 19; Pulse Ox 94% on 2 lpm NC; hb ED Course: 05:19 Patient arrived in ED. ja2 05:19 Arm band placed on left wrist. ha1 05:19 EKG completed in triage. Results shown to MD. ha1 05:19 Patient has correct armband on for positive identification. Placed in gown. Bed in low ha1 position. Call light in reach. Side rails up X2. Adult w/ patient. 05:20 Scout Aleman DO is Attending Physician. ms3 05:25 Cheyenne Go RN is Primary Nurse. ha1 05:31 Triage completed. ha1 05:35 Inserted saline lock: 20 gauge in right antecubital area, using aseptic technique. ke1 05:35 Basic Metabolic Panel Sent. ke1 05:35 CBC with Diff Sent. ke1 05:35 NT PRO-BNP Sent. ke1 05:35 Troponin HS Sent. ke1 07:12 Attending Physician role handed off by Scout Aleman DO cha 07:12 Kushal Dupree MD is Attending Physician. [facility] 07:15 Sunny Evans MD is Hospitalizing Provider. ms3 Administered Medications: 05:33 Drug: SOLU-Medrol (methylPrednisoLONE) 125 mg Route: IVP; Site: right antecubital; ha1 05:35 Drug: Albuterol - atroVENT (ipratropium) (3:1) (2.5 mg - 0.5 mg) 3 ml Route: Nebulizer; ha1 Medication: 10:49 VIS not applicable for this client. hb Outcome: 07:15 Decision to Hospitalize by Provider. ms3 13:23 Patient left the ED. hb Signatures: Kushal Dupree MD MD cha Baxter, Heather RN RN hb Scout Aleman DO DO ms3 Yumiko Hodgson ja2 Tiffany Barahona RN RN replaced by [facility] anson Cheyenne Go RN RN [facility] Corrections: (The following items were deleted from the chart) 07:54 07:11 Reassessment: Patient appears in no apparent distress at this time. Patient hb and/or family updated on plan of care and expected duration. Pain level reassessed. Patient is alert, oriented x 3, equal unlabored respirations, skin warm/dry/pink. hb 08:33 08:28 Reassessment: RT at bedside for trial off BiPAP. hb hb 10:52 05:19 Home Meds: levothyroxine 125 mcg cap 1 cap once daily; ha1 hb 10:52 05:19 Home Meds: metoprolol tartrate 50 mg Oral tab 1 tab 2 times per day; ha1 hb 10:52 05:19 Home Meds: warfarin 5 mg Oral tab 2 tabs AT NIGHT; ha1 hb
--- NOTE | 2022-09-19 07:16 | EDPHYS ---
Physician Documentation [facility] Name: Raul Wilson Age: 67 yrs Sex: Male : 1955 Arrival Date: 09/19/2022 Time: 05:19 Bed 20 Private MD: ED Physician Kushal Dupree HPI: 09/19 05:23 This 67 yrs old Male presents to ER via Unassigned with complaints of Shortness Of ms3 Breath. 05:23 67-year-old male with past medical history of pneumothorax, COPD presents via [facility] for shortness of breath that began tonight. EMS states they administered 1 albuterol and placed patient on a nonrebreather. Patient denies pain. Patient denies alleviating or inciting factors.. Historical: - Allergies: 05:19 No Known Allergies; ha1 - Home Meds: 05:19 aspirin 81 mg Oral tab 81 mg daily [Active]; atorvastatin 40 mg Oral tab 1 tab once ha1 daily [Active]; prednisone 5 mg Oral tab 1.5 tab once daily [Active]; 10:49 metoprolol tartrate 50 mg Oral tab 1 tab 2 times per day [Active]; warfarin 2.5 mg oral hb tab once daily [Active]; B12 Active oral daily [Active]; levothyroxine 150 mcg cap 1 cap once daily [Active]; sulfasalazine 500 mg Oral tab 1 tab twice daily [Active]; methotrexate sodium 15 mg Oral tab 1 tab once wkly [Active]; prednisone 7.5 mg Oral tab once daily [Active]; cyclobenzaprine 10 mg Oral tab as needed [Active]; Folic Acid Oral nightly [Active]; - PMHx: 05:19 COPD; DVT to alma delia legs; Hypercholesterolemia; Hypertensive disorder; RA; Thyroid problem;ha1 - PSHx: 05:19 neck; ha1 - Immunization history:: Adult Immunizations unknown. - Social history:: Smoking status: Patient/guardian denies using tobacco. ROS: 05:23 Constitutional: Negative for fever, and chills. Neck: Negative for injury, pain, and ms3 swelling, Cardiovascular: Negative for chest pain, and palpitations. 05:23 Abdomen/GI: Negative for abdominal pain, nausea, vomiting, diarrhea, and constipation, MS/Extremity: Negative for injury and deformity, Skin: Negative for injury, rash, and discoloration. 05:23 Respiratory: Positive for shortness of breath. 05:23 All other systems are negative. Exam: 05:23 Constitutional: This is a well developed, well nourished patient who is awake, alert, ms3 and in no acute distress. Head/Face: Normocephalic, atraumatic. Chest/axilla: Normal chest wall appearance and motion. Nontender with no deformity. Cardiovascular: Regular rate and rhythm with a normal S1 and S2. No gallops, murmurs, or rubs. Normal PMI, no JVD. No pulse deficits. Abdomen/GI: Soft, non-tender, with normal bowel sounds. No distension or tympany. No guarding or rebound. No evidence of tenderness throughout. Skin: Warm, dry with normal turgor. Normal color with no rashes, no lesions, and no evidence of cellulitis. 05:23 Respiratory: moderate respiratory distress is noted, Respirations: accessory muscle usage, that is moderate, Breath sounds: wheezing: expiratory that is moderate, is heard diffusely. 05:45 ECG was reviewed by the Attending Physician. ms3 Vital Signs: 05:25 BP 145 / 76; Pulse 110; Resp 29 S; Temp 97.8(T); Pulse Ox 100% on 15% Non-rebreather ha1 mask; 05:55 BP 127 / 78; Pulse 111; Resp 23; Pulse Ox 100% on 50% BiPAP; ha1 06:19 BP 104 / 64; Pulse 112; Resp 20 S; Pulse Ox 100% on 100% BiPAP; ha1 07:11 BP 113 / 83; Pulse 110; Resp 26; Pulse Ox 99% on 50% BiPAP; hb 08:32 BP 108 / 78; Pulse 110; Resp 18; Pulse Ox 94% on 2 lpm NC; hb 09:07 BP 102 / 58; Pulse 110; Resp 21; Pulse Ox 95% on 2 lpm NC; hb 09:45 BP 110 / 71; Pulse 86; Resp 18; Pulse Ox 93% on 2 lpm NC; hb 11:13 BP 99 / 75; Pulse 85; Resp 19; Pulse Ox 94% on 2 lpm NC; hb MDM: 05:23 Differential diagnosis: CHF exacerbation, Chronic Obstructive Pulmonary Disease ms3 Pneumothorax. 05:25 Patient medically screened. ms3 07:15 Data reviewed: vital signs, nurses notes, lab test result(s), EKG, and as a result, I juan will admit patient. Consideration of Admission/Observation Patient was admitted/placed on observation. I considered the following discharge prescriptions or medication management in the emergency department Medications were administered in the Emergency Department. See MAR. Independent interpretation of the following test(s) in the Emergency Department television production clerk: rate is 111 beats/min, Rhythm is regular, sinus tachycardia, with no ectopy, Interpretation: tachycardia. Counseling: I had a detailed discussion with the patient and/or guardian regarding: the historical points, exam findings, and any diagnostic results supporting the discharge/admit diagnosis, lab results, radiology results, the need for further work-up and treatment in the hospital. ED course: Patient improved at this time on BiPAP 10/, FiO2 25%. Wheezing has resolved at this time. Discussed admission to the hospital with patient and his and they understand and agree with plan. All questions were answered. Case discussed with Dr. Evans and he accepts patient as inpatient admission.. 09/19 05:23 Order name: Basic Metabolic Panel ms3 09/19 05:23 Order name: CBC with Diff ms3 09/19 05:23 Order name: NT PRO-BNP ms3 09/19 05:23 Order name: Troponin HS ms3 09/19 05:42 Order name: CBC with Automated Diff; Complete Time: 07:01 EDMS 09/19 06:03 Order name: Basic Metabolic Panel; Complete Time: 07:01 EDMS 09/19 05:23 Order name: XRAY Chest (1 view) ms3 09/19 06:03 Order name: Troponin High Sensitivity; Complete Time: 07:01 EDMS 09/19 06:03 Order name: NT PRO-BNP; Complete Time: 07:01 EDMS 09/19 07:34 Order name: RAD EDMS 09/19 09:51 Order name: Urine Dipstick-Ancillary EDMS 09/19 10:07 Order name: SARS-COV-2 RT PCR eb 09/19 11:05 Order name: SARS-COV-2 RT PCR EDMS 09/19 05:23 Order name: EKG; Complete Time: 05:24 ms3 09/19 05:23 Order name: Cardiac monitoring; Complete Time: 05:54 ms3 09/19 05:23 Order name: EKG - Nurse/Tech; Complete Time: 06:18 ms3 09/19 05:23 Order name: IV Saline Lock; Complete Time: 05:35 ms3 09/19 05:23 Order name: Labs collected and sent; Complete Time: 05:35 ms3 09/19 05:23 Order name: O2 Per Protocol; Complete Time: 06:18 ms3 09/19 05:23 Order name: O2 Sat Monitoring; Complete Time: 06:18 ms3 EC:45 Rate is 111 beats/min. Rhythm is regular. QRS [place] is Normal. CA interval is normal. ms3 QRS interval is normal. Clinical impression: Sinus tachycardia. Interpreted by me. Reviewed by me. Administered Medications: 05:33 Drug: SOLU-Medrol (methylPrednisoLONE) 125 mg Route: IVP; Site: right antecubital; ha1 05:35 Drug: Albuterol - atroVENT (ipratropium) (3:1) (2.5 mg - 0.5 mg) 3 ml Route: Nebulizer; ha1 Disposition Summary: 09/19/22 07:15 Hospitalization Ordered Hospitalization Status: Inpatient Admission ms3 Provider: Sunny Evans ms3 Location: Telemetry/MedSurg (Inpatient) ms3 Condition: Stable ms3 Problem: new ms3 Symptoms: are unchanged ms3 Bed/Room Type: Standard ms3 Room Assignment: [facility](09/19/22 11:40) eb Diagnosis - COPD/ Chronic obstructive pulmonary disease with (acute) exacerbation ms3 - Acute respiratory failure ms3 Forms: - Medication Reconciliation Form ms3 - SBAR form ms3 Signatures: Dispatcher [employer] EDLily Scales RN RN Tiffanie Velasco Scout Aleman DO DO ms3 Cheyenne Go RN RN 1 Corrections: (The following items were deleted from the chart) 10:52 05:19 Home Meds: levothyroxine 125 mcg cap 1 cap once daily; ha1 hb 10:52 05:19 Home Meds: metoprolol tartrate 50 mg Oral tab 1 tab 2 times per day; 1 hb 10:52 05:19 Home Meds: warfarin 5 mg Oral tab 2 tabs AT NIGHT; ha1 hb 11:40 07:15 ms3 eb
--- NOTE | 2022-09-19 07:33 | RAD REPORT ---
EXAM DESCRIPTION: RAD - Chest Single View - 09/19/2022 6:13 am CLINICAL HISTORY: SOB Chest pain. COMPARISON: Chest Single View dated 05/18/2021; Chest Single View dated 05/18/2021; Chest Single Vie w dated 05/17/2021; Chest Single View dated 05/17/2021 FINDINGS: Portable technique limits examination quality. The lungs are emphysematous but grossly clear. The heart is normal in size. Several subacute to chron ic lateral right lower thoracic ribcage fractures. IMPRESSION: Prominent COPD.
[2022-09-19] MEDS ORDERED: ACETAMINOPHEN 500 MG TAB PO PRN (09:48)
[2022-09-19] MEDS ORDERED: ONDANSETRON 4 MG/2 ML VIAL IV PRN (09:48)
[2022-09-19] MEDS ORDERED: MORPHINE 2 MG/ML SYR IV PRN (09:48)
[2022-09-19 09:51] LABS: Urine Blood Negative (Negative); Urine Glucose Negative (Negative); Urine Protein Negative (Negative); Urine Specific Gravity 1.015 (1.005-1.030)
--- NOTE | 2022-09-19 09:52 | P.HP ---
Certification for Inpatient Patient admitted to: Inpatient With expected LOS: >2 Midnights Patient will require the following post-hospital care: None Practitioner: I am a practitioner with admitting privileges, knowledge of patient current condition, hospital course, and medical plan of care. Services: Services provided to patient in accordance with Admission requirements found in Title 42 Section 412.3 of the Code of Federal Regulations Patient History Date of Service: 09/19/22 Reason for admission: Shortness of breath History of Present Illness: Patient is a 67-year-old gentleman who comes into the hospital with shortness of breath. Patient has history of coronary artery disease and peripheral arterial disease. Patient was followed by his general maintenance technician and advised to decrease his prednisone. Over the last month since he has decreased his prednisone he has noticed that he is more short of breath. Patient following decided to come into the emergency room for further evaluation. Initially placed on BiPAP and given IV steroids and neb treatments. Clinically, patient appears to be doing much better. Patient will be admitted to the hospital for further workup. Allergies No Known Allergies Allergy (Unverified 02/19/21 20:52) Home Medications: Atorvastatin Calcium [Lipitor] 40 mg PO DAILY 02/20/21 Cyclobenzaprine [Flexeril*] 10 mg PO DAILYPRN PRN 02/20/21 Folic Acid 800 mcg PO DAILY 02/20/21 Levothyroxine [Synthroid*] 150 mcg PO DAILY 02/20/21 Methotrexate [Methotrexate*] 15 mg PO EVERY 7TH DAY 02/20/21 Metoprolol Tartrate [Lopressor*] 50 mg PO BID 02/20/21 Warfarin Sodium [Coumadin*] 2.5 mg PO DAILY 02/20/21 predniSONE [Prednisone*] 5 mg PO DAILY 02/20/21 sulfaSALAzine [Sulfasalazine] 1,000 mg PO BID 02/20/21 - Past Medical/Surgical History Diabetic: No -: COPD -: HTN -: DVT -: bilateral leg DVT -: 2 stents to right leg, 1 stent to left leg -: RA -: hx. of pneumothorax -: stents to alma delia leg -: neck sx - Family History Father Medical History: Cancer Notes: liver - Social History Smoking Status: Former smoker Alcohol use: No CD- Drugs: No Caffeine use: Yes Review of Systems 10-point ROS is otherwise unremarkable Physical Examination - Physical Exam General: Alert, In no apparent distress, Oriented x3 HEENT: Atraumatic, PERRLA, Mucous membr. moist/pink, EOMI, Sclerae nonicteric Neck: Supple, 2+ carotid pulse no bruit, No LAD, Without JVD or thyroid abnormality Respiratory: Diminished, Expiratory wheezes Cardiovascular: Regular rate/rhythm, Normal S1 S2, No murmurs Gastrointestinal: Normal bowel sounds, Soft and benign, Non-distended, No tenderness Musculoskeletal: No clubbing, No swelling, No tenderness Integumentary: No rashes Neurological: Normal gait, Normal speech, Normal strength at 5/5 x4 extr, Normal tone, Sensation intact, Cranial nerves 3-12 intact, Normal affect Lymphatics: No axilla or inguinal lymphadenopathy - Studies Laboratory Data (last 24 hrs) 09/19/22 05:32: WBC 6.10, Hgb 12.3 L, Hct 37.5 L, Plt Count 132 L 09/19/22 05:32: Sodium 134 L, Potassium 3.2 L, BUN 5 L, Creatinine 0.74, Glucose 136 H Assessment & Plan - Problems (Diagnosis) (1) CAD (coronary artery disease) Current Visit: No Status: Acute (2) COPD (chronic obstructive pulmonary disease) Current Visit: No Status: Acute Qualifiers: COPD type: COPD with acute exacerbation Qualified Code(s): J44.1 - Chronic obstructive pulmonary disease with (acute) exacerbation (3) Closed rib fracture Current Visit: No Status: Acute Qualifiers: Encounter type: subsequent encounter Rib fracture type: multiple ribs (4) PAD (peripheral artery disease) Current Visit: No Status: Acute - Plan -nebs, steroids, and antibiotics -O2 per protocol. -continue with anticoagulation -Monitor troponins -repeat chest x-ray -pulmonary consultation Discharge Plan: Home Plan to discharge in: 48 Hours - Advance Directives Does patient have a Living Will: No Does patient have a Durable POA for Healthcare: No - Code Status/Comfort Care Code Status Assessed: Yes Code Status: Full Code Critical Care: No Time Spent Managing PTS Care (In Minutes): 45
[2022-09-19 13:40] VITALS: BMI 23.3
[2022-09-19] MEDS: NA CHLORIDE 0.9% 1,000 ML IV SCH (13:40)
[2022-09-19] MEDS: METHYLPREDNISOLONE 40 MG INJ IV SCH ×3 (13:40→23:55)
[2022-09-19] MEDS: ALBUTEROL 2.5 MG/3 ML NEB SOL NEB SCH ×2 (13:50→19:17)
[2022-09-19] MEDS: IPRATROPIUM BROM 0.5MG/2.5ML NEB SCH ×2 (13:50→19:17)
[2022-09-19] MEDS ORDERED: INFLUENZA VACCINE (for 6+ mo) 0.5 ML DOSE IMVAC ONE (15:00)
[2022-09-19] MEDS: CEFTRIAXONE 1,000 MG in NA CHLORIDE 0.9% 50 ML IVPB SCH (20:08)
[2022-09-20] MEDS: ALBUTEROL 2.5 MG/3 ML NEB SOL NEB SCH ×4 (01:45→19:21)
[2022-09-20] MEDS: IPRATROPIUM BROM 0.5MG/2.5ML NEB SCH ×4 (01:45→19:21)
[2022-09-20] MEDS: NA CHLORIDE 0.9% 1,000 ML IV SCH (02:30)
[2022-09-20 03:58] LABS: Absolute Lymphocytes (CBC) 0.3 K/uL (0.7-4.9); Hematocrit 36.6 % (39.6-49.0); Lymphocytes % 3.5 % (15.3-44.8); MCV 94.9 fL (80-100); MPV 8.5 fL (7.6-11.3); RBC Red Blood Cell Count 3.85 M/uL (4.33-5.43)
[2022-09-20 04:27] LABS: Albumin 2.6 g/dL (3.4-5.0); Bilirubin Total 0.4 mg/dL (0.2-1.0); Potassium 3.6 mmol/L (3.5-5.1); Protein, Total 7.5 g/dL (6.4-8.2)
[2022-09-20 04:30] LABS: Troponin High Sensitivity 168.1 pg/mL (<58.9)
[2022-09-20] MEDS ORDERED: ASPIRIN EC 81 MG TAB PO ONE (05:00)
[2022-09-20 05:17] LABS: Blood Morphology Comment NOT SEEN (NOT SEEN); Platelet Estimate ADEQ
[2022-09-20] MEDS: ENOXAPARIN 80 MG/0.8 ML SQ SCH ×2 (05:52→16:30)
[2022-09-20] MEDS: METHYLPREDNISOLONE 40 MG INJ IV SCH ×2 (05:52→12:10)
[2022-09-20] MEDS ORDERED: guaiFENesin 100 MG/5 ML UCUP PO PRN (07:23)
[2022-09-20] MEDS: FLUTICASONE 50MCG NASAL SPRAY NAS SCH ×2 (08:55→21:50)
[2022-09-20] MEDS: CEFTRIAXONE 1,000 MG in NA CHLORIDE 0.9% 50 ML IVPB SCH (08:58)
[2022-09-20] MEDS ORDERED: AZITHROMYCIN IV 250 MG in NA CHLORIDE 0.9% 250 ML IVPB SCH (09:00)
--- NOTE | 2022-09-20 12:22 | P.CNS ---
Date of Consult: 09/20/22 Reason for Consult: COPD exacerbation Chief Complaint: Shortness of breath History of Present Illness: Patient is 67 years of age with a history of COPD mated with worsening shortness of breath cough congestion past couple of days patient quit smoking recently uses some inhalers at home on prednisone 7.5 mg daily he is feeling a little better history of thromboembolic disorder on warfarin Allergies No Known Allergies Allergy (Unverified 02/19/21 20:52) Home Medications: Atorvastatin Calcium [Lipitor] 40 mg PO DAILY 02/20/21 Cyclobenzaprine [Flexeril*] 10 mg PO DAILYPRN PRN 02/20/21 Folic Acid 800 mcg PO DAILY 02/20/21 Levothyroxine [Synthroid*] 150 mcg PO DAILY 02/20/21 Methotrexate [Methotrexate*] 15 mg PO EVERY 7TH DAY 02/20/21 Metoprolol Tartrate [Lopressor*] 50 mg PO BID 02/20/21 Warfarin Sodium [Coumadin*] 2.5 mg PO DAILY 02/20/21 predniSONE [Prednisone*] 5 mg PO DAILY 02/20/21 sulfaSALAzine [Sulfasalazine] 1,000 mg PO BID 02/20/21 - Past Medical/Surgical History Diabetic: No -: COPD -: HTN -: DVT -: bilateral leg DVT -: 2 stents to right leg, 1 stent to left leg -: hx. of pneumothorax -: Rheumatoid arthritis -: stents to alma delia leg -: neck sx - Family History Father Medical History: Cancer Notes: liver - Social History Alcohol use: No CD- Drugs: No Caffeine use: Yes Place of Residence: Home Review of Systems 10-point ROS is otherwise unremarkable General: Weakness Respiratory: Shortness of Breath Physical Examination Temp Pulse Resp BP Pulse Ox 98.0 F 89 16 102/58 L 100 09/20/22 08:00 09/20/22 08:00 09/20/22 08:00 09/20/22 08:00 09/20/22 08:00 General: Alert, In no apparent distress, Oriented x3 Respiratory: Clear to auscultation bilaterally, Diminished Cardiovascular: No edema, Regular rate/rhythm, Normal S1 S2 Gastrointestinal: Normal bowel sounds, Soft and benign - Problems (1) COPD exacerbation Current Visit: Yes Status: Acute Plan: Patient is 67 years of age admitted with COPD exacerbation active smoker uses prednisone at home history of rheumatoid arthritis patient's troponins have increased significantly oxygenation satisfactory on 2 L no evidence of infection can DC IV antibiotic EKG no acute ST-T changes change to p.o. Augmentin prednisone will need a long-acting in combination inhaler at home
[2022-09-20 14:50] LABS: Protime INR 3.82
--- NOTE | 2022-09-20 16:49 | P.PN ---
Subjective Date of Service: 09/20/22 Chief Complaint: Shortness of breath No acute events overnight. He reports that his shortness of breath and chest tightness have resolved. However, his troponin has up-trended. He was seen by Cardiology, who recommended nuclear stress test in the morning. Review of Systems 10-point ROS is otherwise unremarkable Respiratory: Shortness of Breath (improved) Cardiovascular: Chest Pain (resolved) Physical Examination - Vital Signs Temperature: 97.9 F Blood Pressure: 113/65 Pulse: 121 Respirations: 16 Pulse Ox (%): 97 - Physical Exam General: Alert, In no apparent distress, Oriented x3 HEENT: Atraumatic, EOMI, Sclerae nonicteric Neck: JVD not distended Respiratory: Diminished, Expiratory wheezes (faint, end-expiratory) Cardiovascular: No edema, Regular rate/rhythm, Normal S1 S2, No gallops, No rubs, No murmurs Gastrointestinal: Normal bowel sounds, Soft and benign, Non-distended, No tenderness, No rebound, No guarding Musculoskeletal: No clubbing Integumentary: No rashes Neurological: Normal speech, Normal affect Assessment And Plan - Plan # Acute Chronic Obstructive Pulmonary Disease Exacerbation # SIRS Criteria (Tachypnea, Tachycardia) likely due to COPD Exacerbation - no obvious infectious source - Evaluation thus far: - Physical exam = faint end-expiratory wheezing throughout - Chest x-ray = "prominent COPD." - Plan: - Pulmonology consulted - recommendations appreciated - Bronchodilators and steroids per Pulm - Consulted Respiratory Therapy - Supplemental oxygen to maintain SpO2 > 92% - Assess inhaler technique one improved from COPD exacerbation - PRN benzonatate, guaifenesin # Suspect Type II Non-ST Segment Elevation Myocardial Infarction (Demand Ischemia) secondary to above # Coronary Artery Disease # Hypertension # Elevated INR - Evaluation thus far: - EKG: reportedly without STEMI criteria, trend - Serial troponin: 43.4 -> 168.1 - Ordered transthoracic echocardiogram - Management plan: - Consult Cardiology and he was evaluated by Dr. Sol - recommendations appreciated - Recommended nuclear stress test in the morning - Continue aspirin + atorvastatin - If cardiac ischemia confirmed, plan to start beta-andrew, SERA- inhibitor/ARB as tolerated - Hold further doses of enoxaparin until INR is closer to normal limits # Multiple Subacute vs Chronic Right Lateral Lower Thoracic Rib Cage Fractures # Peripheral Artery Disease s/p Lower Extremity Stenting # History of Bilateral Lower Extremity Deep Venous Thrombosis # Rheumatoid Arthritis - Stable, outpatient follow-up Isiah Ferrer M.D.
[2022-09-20] MEDS ORDERED: BENZONATATE 100 MG CAP PO PRN (16:56)
[2022-09-20] MEDS: ATORVASTATIN 40 MG TAB PO SCH (21:50)
[2022-09-20] MEDS: predniSONE 20 MG TAB PO SCH (21:50)
[2022-09-20] MEDS: AMOX/K CLAV 875 MG TAB PO SCH (21:50)
[2022-09-21] MEDS: IPRATROPIUM BROM 0.5MG/2.5ML NEB SCH ×4 (00:30→20:00)
[2022-09-21] MEDS: ALBUTEROL 2.5 MG/3 ML NEB SOL NEB SCH ×5 (00:30→20:00)
--- NOTE | 2022-09-21 05:09 | CON ---
Date of Consultation: 09/20/2022 Reason For Consultation: Elevated troponin. History Of Present Illness: 67-year-old male, history of COPD, is an active smoker, history of hyper tension, DVT, presented to the emergency room with significant shortness of breath and cough and whee zing. Denies having any chest pain. Initially, he was placed on BiPAP and with IV steroids, he did better and no known history of coronary artery disease. Past Medical History: As outlined above in the HPI. Medications: Per consultation sheet for detailed list. Allergies: NO KNOWN DRUG ALLERGIES. Family History: No premature coronary artery disease or cancer. Social History: He is an active smoker. Does not drink, use any drugs. Review of Systems: All systems reviewed, they are negative except as mentioned in the HPI. Physical Examination: Vital signs: Reviewed. Head and Neck: Pupils are equal, reactive to light. Intact eye movements. No JVD. No cervical lym phadenopathy. Neck: Supple. Thyroid not enlarged. LUNGS: Decreased breathing sounds bilaterally with rhonchi and wheezing bilaterally. No accessory m uscle use or muscle retraction. Heart: Regular rate and rhythm. No extra sounds. Abdomen: Soft, nontender. Bowel sounds positive. No organomegaly. No masses or hernias. No rigid ity or rebound. Extremities: No edema, clubbing, cyanosis. Intact pulses. Skin: No rash. Neurologic: Alert, awake, oriented x3. No acute focal deficits appreciated. Lymph nodes: No cervical or axillary adenopathy. Investigations: First troponin was 43, peaked at 168 and down to 142. BUN is 7, creatinine 0.66, an d hemoglobin is 12.1. Assessment And Recommendation: 1.Elevated troponin. This is likely demand due to the chronic obstructive pulmonary disease exacerb ation. However, patient has significant risk factors including a the heavy smoking history. I recom mend a Lexiscan nuclear stress test once he is medically stable. Baby aspirin is recommended and I w ill recommend high-dose statin. The patient was counseled against smoking. 2.Smoker. He was counseled against smoking in detail. 3.Chronic obstructive pulmonary disease exacerbation with an acute respiratory failure that has impr hi. Continue current management. SR/MODL Voice ID: [id number] Report ID: [id number]
[2022-09-21 07:11] LABS: Protime INR 3.68
[2022-09-21] MEDS ORDERED: POTASSIUM CL SA 10 MEQ TAB PO ONE (08:10)
[2022-09-21] MEDS: AMOX/K CLAV 875 MG TAB PO SCH ×2 (09:17→22:31)
[2022-09-21] MEDS: ASPIRIN 81 MG CHEWABLE TABLET PO SCH (09:17)
[2022-09-21] MEDS: predniSONE 20 MG TAB PO SCH ×3 (09:18→22:31)
[2022-09-21] MEDS: FLUTICASONE 50MCG NASAL SPRAY NAS SCH ×2 (09:19→22:31)
--- NOTE | 2022-09-21 12:01 | P.PN ---
Subjective Date of Service: 09/21/22 Chief Complaint: COPD exacerbation Subjective: Improving (Improving doing better scheduled for a stress test today) Review of Systems General: Weakness Respiratory: Shortness of Breath Physical Examination - Vital Signs Temperature: 98.2 F Blood Pressure: 125/68 Pulse: 110 Respirations: 20 Pulse Ox (%): 93 - Physical Exam General: Alert, Oriented x3 Respiratory: Clear to auscultation bilaterally, Diminished Cardiovascular: No edema, Regular rate/rhythm, Normal S1 S2 - Studies Laboratory Data (last 24 hrs) 09/21/22 06:52: PT 40.5 H, INR 3.68 09/20/22 13:39: PT 42.0 H, INR 3.82 Assessment And Plan - Current Problems (Diagnosis) (1) COPD exacerbation Current Visit: Yes Status: Acute Plan: Patient admitted with COPD exacerbation elevated troponins most likely secondary to demand ischemia scheduled for a stress test check room air pulse ox he needs to go home on scheduled bronchodilators she just uses it as needed possible discharge today after stress test on prednisone 10 mg twice a day for 10 days Symbicort prescription faxed follow-up with me in 2 weeks
--- NOTE | 2022-09-21 13:23 | P.PN ---
Subjective Date of Service: 09/21/22 Chief Complaint: COPD exacerbation No acute events overnight. He reports that his shortness of breath and chest tightness have completely resolved. He has been NPO after midnight in anticipation for a nuclear stress test. Review of Systems 10-point ROS is otherwise unremarkable Cardiovascular: Chest Pain (resolved) Physical Examination - Vital Signs Temperature: 98.2 F Blood Pressure: 125/68 Pulse: 110 Respirations: 20 Pulse Ox (%): 93 - Studies Laboratory Data (last 24 hrs) 09/21/22 06:52: PT 40.5 H, INR 3.68 09/20/22 13:39: PT 42.0 H, INR 3.82 Assessment And Plan - Plan - Physical Exam General: Alert, In no apparent distress, Oriented x3 HEENT: Atraumatic, EOMI, Sclerae nonicteric Neck: JVD not distended Respiratory: Diminished, Clear to auscultation, without wheezes, rhonchi, or rales Cardiovascular: No edema, Regular rate/rhythm, No gallops, No rubs, No murmurs Gastrointestinal: Normal bowel sounds, Soft and benign, Non-distended, No tenderness Musculoskeletal: No clubbing Integumentary: No rashes Neurological: Normal speech, Normal affect # Acute Chronic Obstructive Pulmonary Disease Exacerbation # SIRS Criteria (Tachypnea, Tachycardia) likely due to COPD Exacerbation - no obvious infectious source - Evaluation thus far: - Physical exam = faint end-expiratory wheezing throughout - Chest x-ray = "prominent COPD." - Plan: - Pulmonology consulted - recommendations appreciated - Bronchodilators and steroids per Pulm - Consulted Respiratory Therapy - Supplemental oxygen to maintain SpO2 > 92% - Assess inhaler technique one improved from COPD exacerbation - PRN benzonatate, guaifenesin # Suspect Type II Non-ST Segment Elevation Myocardial Infarction (Demand Ischemia) secondary to above # Coronary Artery Disease # Hypertension # Elevated INR - Evaluation thus far: - EKG: reportedly without STEMI criteria, trend - Serial troponin: 43.4 -> 168.1 -> 142.9 - Ordered transthoracic echocardiogram - Management plan: - Consult Cardiology and he was evaluated by Dr. Sol - recommendations appreciated - Plan for nuclear stress test this morning - Continue aspirin + atorvastatin - If cardiac ischemia confirmed, plan to start beta-andrew, SERA- inhibitor/ARB as tolerated - Hold further doses of enoxaparin until INR is closer to normal limits # Multiple Subacute vs Chronic Right Lateral Lower Thoracic Rib Cage Fractures # Peripheral Artery Disease s/p Lower Extremity Stenting # History of Bilateral Lower Extremity Deep Venous Thrombosis # Rheumatoid Arthritis - Stable, outpatient follow-up Isiah Ferrer M.D.
[2022-09-21] MEDS: ATORVASTATIN 40 MG TAB PO SCH (22:31)
[2022-09-22] MEDS: IPRATROPIUM BROM 0.5MG/2.5ML NEB SCH ×3 (01:43→14:30)
[2022-09-22] MEDS: ALBUTEROL 2.5 MG/3 ML NEB SOL NEB SCH ×3 (01:44→14:30)
--- NOTE | 2022-09-22 07:14 | ECHO ---
HEIGHT: 6 ft 0 in WEIGHT: 172 lb 9.6 oz DATE OF STUDY: 09/21/[address]: Isiah Ferrer MD 2-DIMENSIONAL: YES M.MODE: YES DOPPLER: YES COLOR FLOW: YES TDS: PORTABLE: YES DEFINITY: BUBBLE STUDY: DIAGNOSIS: NON ST ELEVATION CARDIAC HISTORY: CATHERIZATION: SURGERY: PROSTHETIC VALVE: PACEMAKER: MEASUREMENTS (cm) DIASTOLIC (NORMALS) SYSTOLIC (NORMALS) IVSd 1.1 (0.6-1.2) LA Diam 3.6 (1.9-4.0) LVEF 68% LVIDd 2.9 (3.5-5.7) LVIDs 1.8 (2.0-3.5) %FS 37% LVPWd 1.2 (0.6-1.2) Ao Diam 3.1 (2.0-3.7) 2 DIMENSIONAL ASSESSMENT: RIGHT ATRIUM: NORMAL LEFT ATRIUM: NORMAL RIGHT VENTRICLE: NORMAL LEFT VENTRICLE: NORMAL TRICUSPID VALVE: NORMAL MITRAL VALVE: MILD MITRAL REGURGITATION PULMONIC VALVE: NORMAL AORTIC VALVE: NORMAL PERICARDIAL EFFUSION: NONE AORTIC ROOT: NORMAL LEFT VENTRICULAR WALL MOTION: NORMAL (HYPERDYNAMIC) DOPPLER/COLOR FLOW: MILD MITRAL REGURGITATION COMMENTS: 1. NORMAL LEFT VENTRICULAR EJECTION FRACTION GREATER THAN 65% 2. NORMAL WALL MOTION (HYPERDYNAMIC LEFT VENTRICLE) 3. MILD MITRAL REGURGITATION TECHNOLOGIST: SONNY CORREA
[2022-09-22 07:36] LABS: Potassium 3.4 mmol/L (3.5-5.1)
[2022-09-22] MEDS: ASPIRIN 81 MG CHEWABLE TABLET PO SCH (09:00)
[2022-09-22] MEDS: predniSONE 20 MG TAB PO SCH (09:00)
[2022-09-22] MEDS: FLUTICASONE 50MCG NASAL SPRAY NAS SCH (09:00)
[2022-09-22] MEDS: AMOX/K CLAV 875 MG TAB PO SCH (09:00)
[2022-09-22 09:32] VITALS: O2SAT 96
[2022-09-22] MEDS ORDERED: REGADENOSON 0.4 MG/5 ML SYR IV ONE (12:00)
--- NOTE | 2022-09-22 13:40 | RAD REPORT ---
EXAM DESCRIPTION: NM - Rest Stress Cardiac Imaging - 09/22/2022 1:06 pm CLINICAL HISTORY: Chest pain. COMPARISON: None. TECHNIQUE: The patient was administered 10 mCi of Tc 99m Sestamibi prior to resting SPECT imaging of the heart. The patient was then administered 32.7 mCi of Tc 99m Sestamibi following exercise or phar macologic stress. Multiplanar SPECT images were reviewed. FINDINGS: There is uniformity of radiotracer uptake involving the entire left ventricular myocardiu m on rest and stress images. The left ventricular ejection fraction equals 68% IMPRESSION: Negative for a myocardial perfusion defect
--- NOTE | 2022-09-22 14:01 | TREADPHA ---
DX: [*] Date of Study: 09/22/2022 Ht: 6' 0 " Wt: 172 lb 9.6 oz Consulting Physician: LINDA MEDICATIONS: TYLENOL, PROVENTIL, AUGMENTIN, ASPIRIN, LIPITOR, LOVENOX, DELTSONE HISTORY: 67 YEAR OLD MALE WITH COMPLAINTS OF CHEST PAIN, SHORTNESS OF BREATH AND CHEST PAIN. HISTORY OF COPD, HYPERTENSION, DVT, CAD, PAD, RA, FORMER SMOKER, DAILY DRINKER. PHYSICIAL EXAMINATION: RESTING B.P.: 113/79 RESTING H.R.: 115 RESTING EKG: SINUS TACHYCARDIA. PROTOCOL: LEXISCAN EXERCISE TIME: 3:30 B.P. AT PEAK STRESS: 139/73 IMPRESSION: LEXISCAN INJECTED, FOLLOWED BY CARDIOLITE PER PROTOCOL. SEE NUCLEAR MEDICINE REPORT. NO SUPRAVENTRICULAR TACHYCARDIA, VENTRICULAR TACHYCARDIA, PREMATURE ATRIAL COMPLEXES. PATIENT HAD OCCASIONAL PREMATURE VENTRICULAR COMPLEXES. PATIENT REPORTS NO CHEST PAIN. NO EKG CHANGES OF ISCHEMIA WITH LEXISCAN.
[2022-09-22] MEDS ORDERED: METOPROLOL TAR 50 MG TAB PO SCH (14:30)
[2022-09-22 15:49] VITALS: BP 132/83; TEMP 97.7
--- NOTE | 2022-09-22 15:50 | P.DS ---
Admission Date: 09/21/22 Discharge Date: 09/22/22 Disposition: ROUTINE DISCHARGE Discharge Condition: GOOD Reason for Admission: COPD exacerbation Consultations: 1. Pulmonology 2. 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 Raul Wilson is a 67 year old male with a past medical history significant for chronic obstructive pulmonary disease, coronary artery disease, hypertensio n, peripheral artery disease s/p lower extremity stenting, and rheumatoid arthritis who was admitted to the [facility] on 09/19/2022 for shortness of breath. He was admitted to the Medicine service. Upon further evaluation, he was found to have an acute COPD exacerbation. His chest x-ray revealed, "prominent COPD." Pulmonology was consulted and he was evaluated by Dr. Kay. He was treated with bronchodilators and steroids, and over the course of his hospitalization, his symptoms improved significantly. Dr. Kay has cleared him for discharge home with prednisone and outpatient follow-up. During his hospitalization, he reported chest pain. His troponin trend was followed, and was 43.4 -> 168.1 -> 142.9. His transthoracic echocardiogram revealed, "1. normal left ventricular ejection fraction greater than 65% 2. normal wall motion (hyperdynamic left ventricle) 3. mild mitral regurgitation." Cardiology was consulted and he was evaluated by Dr. Sol. Dr. Sol recommended a nuclear stress test, which revealed, "negative for a myocardial perfusion defect." He has cleared him for discharge with outpatient follow-up. On 09/22/2022, he was seen on rounds and deemed medically stable for discharge. He was discharged with instructions to schedule follow-up appointments with his PCP (Dr. Nguyen), with Cardiology (Dr. Sol), and with Pulmonology (Dr. Khadra tavarez). He was provided prescriptions for prednisone, Symbicort, and benzonatate. The patient and family members were given the opportunity to ask questions and reported no further questions. Furthermore, all questions were answered to the best of my ability. A copy of this discharge summary will be sent to the above providers to facilitate continuity of care. Today, I personally spent 25 minutes on his case, of which greater than 50% of the time was spent in patient education, counseling, and coordination of care as described above. - Physical Exam General: Alert, In no apparent distress, Oriented x3 HEENT: Atraumatic, Sclerae nonicteric Neck: JVD not distended Respiratory: Diminished, Clear to auscultation, without wheezes, rhonchi, or rales Cardiovascular: No edema, Regular rate/rhythm, No gallops, No rubs, No murmurs Gastrointestinal: Normal bowel sounds, Soft, Non-distended, No tenderness Musculoskeletal: No clubbing Integumentary: No rashes Neurological: Normal speech, Normal affect Vital Signs/Physical Exam: Temp Pulse Resp BP Pulse Ox 97.7 F 90 16 132/83 97 09/22/22 15:47 09/22/22 15:47 09/22/22 15:47 09/22/22 15:47 09/22/22 15:47 Laboratory Data at Discharge: WBC 7.70 K/uL (4.3-10.9) 09/20/22 02:45 Hgb 12.1 g/dL (13.6-17.9) L 09/20/22 02:45 Hct 36.6 % (39.6-49.0) L 09/20/22 02:45 Plt Count 152 K/uL (152-406) 09/20/22 02:45 PT 40.5 SECONDS (9.5-12.5) H 09/21/22 06:52 INR 3.68 09/21/22 06:52 Sodium 143 mmol/L (136-145) 09/22/22 07:09 Potassium 3.4 mmol/L (3.5-5.1) L 09/22/22 07:09 BUN 21 mg/dL (7-18) H 09/22/22 07:09 Creatinine 0.50 mg/dL (0.70-1.30) L 09/22/22 07:09 Glucose 94 mg/dL (74-106) 09/22/22 07:09 Total Bilirubin 0.4 mg/dL (0.2-1.0) 09/20/22 02:45 AST 27 U/L (15-37) 09/20/22 02:45 ALT 21 U/L (16-61) 09/20/22 02:45 Alkaline Phosphatase 113 U/L (45-117) 09/20/22 02:45 Home Medications: Atorvastatin Calcium [Lipitor] 40 mg PO DAILY 02/20/21 Cyclobenzaprine [Flexeril*] 10 mg PO DAILYPRN PRN 02/20/21 Folic Acid 800 mcg PO DAILY 02/20/21 Levothyroxine [Synthroid*] 150 mcg PO DAILY 02/20/21 Methotrexate [Methotrexate*] 15 mg PO EVERY 7TH DAY 02/20/21 Metoprolol Tartrate [Lopressor*] 50 mg PO BID 02/20/21 Warfarin Sodium [Coumadin*] 2.5 mg PO DAILY 02/20/21 predniSONE [Prednisone*] 5 mg PO DAILY 02/20/21 sulfaSALAzine [Sulfasalazine] 1,000 mg PO BID 02/20/21 Budesonide/Formoterol Fumarate [Symbicort 160-4.5 Mcg Inhaler] 2 puff IH BID 30 Days #120 aero 09/21/22 Aspirin Chewable [Aspirin Chewable*] 81 mg PO DAILY tab.chew 09/22/22 Benzonatate [Tessalon Perle*] 100 mg PO TID PRN 7 Days #20 cap 09/22/22 predniSONE [Deltasone*] 10 mg PO BID 7 Days #14 tab 09/22/22 New Medications: predniSONE [Deltasone*] 10 mg PO BID 7 Days #14 tab Budesonide/Formoterol Fumarate [Symbicort 160-4.5 Mcg Inhaler] 2 puff IH BID 30 Days #120 aero Benzonatate [Tessalon Perle*] 100 mg PO TID PRN 7 Days #20 cap PRN Reason: Cough Physician Discharge Instructions: Please fax a prescription for Symbicort to the patient's pharmacy at discharge 1. Please call and schedule a follow-up appointment with your PCP (Dr. George) in 3-5 days 2. Please call and schedule a follow-up appointment with Pulmonology (Dr. Kay) in 5-7 days 3. Please call and schedule a follow-up appointment with Cardiology (Dr. Sol) in 5-7 days Followup: Maximiliano Kay MD [ACTIVE - CAN ADMIT] - Lux Sol MD [ACTIVE - CAN ADMIT] - Time spent managing pt's care (in minutes): 25
[2022-09-22 16:43] LABS: Protime INR 2.17
== END 2022-09-22 16:57 | disposition home or self-care (01) | DRG 190 ==
LOC: ER 05:18 → ERHOLD 09:48 → 2ND 13:34 → OBSVTOIN 09-21 09:51
PROVIDERS: ADMIT Hospitalist; ATTEND Internal Medicine
PROC: 5A09457 Assistance with Respiratory Ventilation, 24-96 Consecutive Hours, Continuous Positive Airway Pressure (ICD-10-PCS; principal; 2022-09-19)
DX: J44.1 Chronic obstructive pulmonary disease with (acute) exacerbation (principal); I21.A1 Myocardial infarction type 2; J96.00 Acute respiratory failure, unspecified whether with hypoxia or hypercapnia; R65.10 Systemic inflammatory response syndrome (SIRS) of non-infectious origin without acute organ dysfunction; I73.9 Peripheral vascular disease, unspecified; M06.9 Rheumatoid arthritis, unspecified; I10 Essential (primary) hypertension; I34.0 Nonrheumatic mitral (valve) insufficiency; I25.10 Atherosclerotic heart disease of native coronary artery without angina pectoris; S22.41XD Multiple fractures of ribs, right side, subsequent encounter for fracture with routine healing; R79.1 Abnormal coagulation profile; Z79.82 Long term (current) use of aspirin; Z79.890 Hormone replacement therapy; Z79.01 Long term (current) use of anticoagulants; Z79.52 Long term (current) use of systemic steroids; Z79.899 Other long term (current) drug therapy; Z86.718 Personal history of other venous thrombosis and embolism; Z87.891 Personal history of nicotine dependence; Z20.822 Contact with and (suspected) exposure to COVID-19
CPT/HCPCS: 36415; 71045; 78452; 80048; 80053; 81003; 83880; 84145; 84484; 85025; 85610; 93017; 93306; 94640; 94660; 94760; 96374; 99285; G0378; J0456; J1650; J2785; J2920; J2930; J7030; J7050; J7512; J7613; J7644; U0003

== ENCOUNTER 2022-12-05 09:07 | Emergency (ER) | payer OTHER ==
--- OUTSIDE RECORDS SUMMARY | 2022-12-05 09:13 | XMS REPORT | Continuity of Care Document ---
:1955 Author Organization [facility] t Address [address] [facility] [address] [place] [id number] Care Team Providers Name Role Phone AMANDA CORONA Primary Care Physician Unavailable PAVAN ROSENTHAL Attending Clinician Unavailable Jen Harden Attending Clinician Marizol Mahajan MD Attending Clinician Pob, [facility] Main Attending Clinician Unavailable Amanda Pineda Attending Clinician AMANDA CORONA Attending Clinician Unavailable Doctor Unassigned, [place] Attending Clinician Unavailable ROZ IMLNER Attending Clinician Unavailable Roz Milner MD Attending Clinician 2, [facility] Attending Clinician Unavailable Lab, Adc Fam Pob I Attending Clinician Unavailable Payers Payer Name Policy Type Policy Number Effective Date Expiration Date S darrell [employer] MEDICARE [id number] 2020 00:00:00 Problems Condition Condition Condition Status Onset Resolution Last Treating Co mments Source Name Details Category Date Date Treatment Clinician Date Essential Essential Disease Active Uni vers hypertensi hypertensi 3-10 it y of on on 00:00: [place] [address] Medical Branch Mixed Mixed Disease Active Univers hyperlipid hyperlipid 3-10 it y of emia emia 00:00: [place] [address] Medical Branch Rheumatoid Rheumatoid Disease Active U nivers arthritis arthritis 3-10 [place] multiple [place] Med[place] sites sites Branch 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 3-10 it y of (DVT) of (DVT) of 00:00: [place] lower lower 00 Medical extremity extremity Bran ch Allergies, Adverse Reactions, Alerts Allergy Allergy Status Severity Reaction(s) Onset Inactive Treating Comm ents Source Name Type Date Date Clinician NO KNOWN Drug Active Univers ALLERGIE Class ity of S [facility] Social History Social Habit Start Date Stop Date Quantity Comments Source Exposure to Not sure [facility] SARS-CoV-2 (event) [facility] Cigarettes smoked 2020-10-28 2020-10-28 Univers ity of current (pack per 00:00:00 00:00:00 [facility] ed) - Reported Branch Cigarette 2020-10-28 2020-10-28 University of pack-years 00:00:00 00:00:00 [facility] Tobacco use and 2020-10-28 2020-10-28 Never used Universit y of exposure 00:00:00 00:00:00 [facility] Alcohol intake 2020-10-28 2020-10-28 Current drinker Unive rsity of 00:00:00 00:00:00 of alcohol [facility] [place] [facility] (finding) [place] Alcohol Comment 2020-10-15 2020-10-15 6-7 beers/day Univer sity of 00:00:00 00:00:00 [facility] History of tobacco 2017-09-07 Cigarette Smoker University of use 00:00:00 [facility] Sex Ass[birth year] Universit y of 00:00:00 00:00:00 [facility] Smoking Status Start Date Stop Date Source Former smoker 2020-10-28 00:00:00 2020-10-28 00:00:00 Universi ty of [facility] Medications Ordered Filled Start Stop Current Ordering Indication Dosage Frequency Signature Comments Components Source Medication Medication Date Date Medication? Clinician (SIG) Name Name atorvastati 2020- 40mg Take 40 mg Univers n 40 mg 4-20 04-20 by mouth ity of tablet 19:30: 00:00 at [place] 05 :00 bedtime. Medical Branch atorvastati Yes [id number] 40mg Take 1 Univers n 40 mg 4-20 tablet by ity of tablet 00:00: mouth at [place] 00 bedtime. Medical Branch atorvastati Yes [id number] 40mg Take 1 Univers n 40 mg 4-20 tablet by ity of tablet 00:00: mouth at [place] [address] bedtime. Medical Branch atorvastati Yes [id number] 40mg Take 1 Univers n 40 mg 4-20 tablet by ity of tablet 00:00: mouth at [place] [address] bedtime. Medical Branch atorvastati Yes [id number] 40mg Take 1 Univers n 40 mg 4-20 tablet by ity of tablet 00:00: mouth at [place] [address] bedtime. Medical Branch atorvastati Yes [id number] 40mg Take 1 Univers n 40 mg 4-20 tablet by ity of tablet 00:00: mouth at [place] [address] bedtime. Medical Branch atorvastati Yes [id number] 40mg Take 1 Univers n 40 mg 4-20 tablet by ity of tablet 00:00: mouth at [place] [address] bedtime. Medical Branch atorvastati Yes [id number] 40mg Take 1 Univers n 40 mg 4-20 tablet by ity of tablet 00:00: mouth at [place] [address] bedtime. Medical Branch atorvastati Yes [id number] 40mg Take 1 Univers n 40 mg 4-20 tablet by ity of tablet 00:00: mouth at [place] [address] bedtime. Medical Branch atorvastati Yes [id number] 40mg Take 1 Univers n 40 mg 4-20 tablet by ity of tablet 00:00: mouth at [place] [address] bedtime. Medical Branch atorvastati Yes [id number] 40mg Take 1 Univers n 40 mg 4-20 tablet by ity of tablet 00:00: mouth at [place] [address] bedtime. Medical Branch predniSONE 2020-0 2020- No 10mg Take 10 mg Univers 10 mg 4-14 04-12 by mouth ity of tablet 13:43: 00:00 daily. [place] 00 :00 Medical Branch predniSONE 2020-0 Yes [id number] 10mg Take 1 Univers 10 mg 4-14 tablet by ity of tablet 00:00: mouth [place] 00 daily. Medical Branch predniSONE 2020-0 Yes [id number] 10mg Take 1 Univers 10 mg 4-14 tablet by ity of tablet 00:00: mouth [place] 00 daily. Medical Branch predniSONE 2020-0 Yes [id number] 10mg Take 1 Univers 10 mg 4-14 tablet by ity of tablet 00:00: mouth [place] 00 daily. [facility] Branch predniSONE 2020-0 Yes [id number] 10mg Take 1 Univers 10 mg 4-14 tablet by ity of tablet 00:00: mouth [place] 00 daily. [facility] Branch predniSONE 2020-0 Yes [id number] 10mg Take 1 Univers 10 mg 4-14 tablet by ity of tablet 00:00: mouth [place] 00 daily. [facility] Branch predniSONE 2020-0 Yes [id number] 10mg Take 1 Univers 10 mg 4-14 tablet by ity of tablet 00:00: mouth [place] 00 daily. [facility] Branch predniSONE 2020-0 Yes [id number] 10mg Take 1 Univers 10 mg 4-14 tablet by ity of tablet 00:00: mouth [place] 00 daily. [facility] Branch predniSONE 2020-0 Yes [id number] 10mg Take 1 Univers 10 mg 4-14 tablet by ity of tablet 00:00: mouth [place] 00 daily. [facility] predniSONE 2020-0 Yes [id number] 10mg Take 1 Univers 10 mg 4-14 tablet by ity of tablet 00:00: mouth [place] 00 daily. [facility] predniSONE 2020-0 Yes [id number] 10mg Take 1 Univers 10 mg 4-14 tablet by ity of tablet 00:00: mouth [place] 00 daily. [facility] predniSONE 2020-0 Yes [id number] 10mg Take 1 Univers 10 mg 4-14 tablet by ity of tablet 00:00: mouth [place] 00 daily. [facility] predniSONE 2020-0 Yes [id number] 10mg Take 1 Univers 10 mg 4-14 tablet by ity of tablet 00:00: mouth [place] 00 daily. [facility] predniSONE 1-0 Yes [id number] 10mg Take 1 Univers 10 mg 4-14 tablet by ity of tablet 00:00: mouth [place] 00 daily. [facility] Branch levothyroxi 2020-0 Yes [id number] 125ug Take 1 Univers ne 125 mcg 4-12 tablet by ity of tablet 00:00: mouth [place] 00 every Medical morning. Branch levothyroxi 2020-0 Yes [id number] 125ug Take 1 Univers ne 125 mcg 4-12 tablet by ity of tablet 00:00: mouth [place] 00 every Medical morning. Branch levothyroxi 2020-0 Yes [id number] 125ug Take 1 Univers ne 125 mcg 4-12 tablet by ity of tablet 00:00: mouth [place] 00 every Medical morning. Branch levothyroxi 0 Yes [id number] 125ug Take 1 Univers ne 125 mcg 4-12 tablet by ity of tablet 00:00: mouth [place] 00 every Medical morning. Branch levothyroxi 0 Yes [id number] 125ug Take 1 Univers ne 125 mcg 4-12 tablet by ity of tablet 00:00: mouth [place] 00 every Medical morning. Branch levothyroxi 0 Yes [id number] 125ug Take 1 Univers ne 125 mcg 4-12 tablet by ity of tablet 00:00: mouth [place] 00 every Medical morning. Branch levothyroxi 0 Yes [id number] 125ug Take 1 Univers ne 125 mcg 4-12 tablet by ity of tablet 00:00: mouth [place] 00 every Medical morning. Branch levothyroxi 0 Yes [id number] 125ug Take 1 Univers ne 125 mcg 4-12 tablet by ity of tablet 00:00: mouth [place] 00 every Medical morning. Branch levothyroxi 0 Yes [id number] 125ug Take 1 Univers ne 125 mcg 4-12 tablet by ity of tablet 00:00: mouth [place] 00 every Medical morning. Branch levothyroxi 0 Yes [id number] 125ug Take 1 Univers ne 125 mcg 4-12 tablet by ity of tablet 00:00: mouth [place] 00 every Medical morning. Branch levothyroxi 0 Yes [id number] 125ug Take 1 Univers ne 125 mcg 4-12 tablet by ity of tablet 00:00: mouth [place] 00 every Medical morning. Branch levothyroxi 0 Yes [id number] 125ug Take 1 Univers ne 125 mcg 4-12 tablet by ity of tablet 00:00: mouth [place] 00 every Medical morning. Branch levothyroxi 0 Yes [id number] 125ug Take 1 Univers ne 125 mcg 4-12 tablet by ity of tablet 00:00: mouth [place] 00 every Medical morning. Branch levothyroxi 0 Yes [id number] 125ug Take 1 Univers ne 125 mcg 4-12 tablet by ity of tablet 00:00: mouth [place] 00 every Medical morning. Branch levothyroxi 2020-0 Yes [id number] 125ug Take 1 Univers ne 125 mcg 4-12 tablet by ity of tablet 00:00: mouth [place] 00 every Medical morning. Branch levothyroxi 2021-0 Yes [id number] 125ug Take 1 Univers ne 125 mcg 4-12 tablet by ity of tablet 00:00: mouth [place] 00 every Medical morning. Branch metoprolol 2020- No Take by Uni vers succinate 3-23 -23 mouth ity of 50 mg CSpX 16:23: 00:[address] [facility] 38 :00 [facility] metoprolol 2020- No Take by Uni vers succinate 3-23 -23 mouth ity of 50 mg CSpX 16:23: 00:[address] [facility] 38 :00 [facility] metoprolol Yes [id number] 50mg Take 50 mg Univers succinate 3-23 by mouth ity of 50 mg CSpX 00:00: daily. [facility] metoprolol Yes [id number] 50mg Take 50 mg Univers succinate 3-23 by mouth ity of 50 mg CSpX 00:00: daily. [facility] metoprolol Yes [id number] 50mg Take 50 mg Univers succinate 3-23 by mouth ity of 50 mg CSpX 00:00: daily. [facility] METOPROLOL Yes [id number] TAKE 1 U nivers SUCCINATE 3-23 TABLET BY ity o f XL 50 mg 24 00:00: MOUTH ONCE [place] hr tablet 00 DAILY Medical Branch METOPROLOL Yes [id number] TAKE 1 U nivers SUCCINATE 3-23 TABLET BY ity o f XL 50 mg 24 00:00: MOUTH ONCE [place] hr tablet 00 DAILY Medical Branch METOPROLOL Yes [id number] TAKE 1 U nivers SUCCINATE 3-23 TABLET BY ity o f XL 50 mg 24 00:00: MOUTH ONCE [place] hr tablet 00 DAILY Medical Branch METOPROLOL Yes [id number] TAKE 1 U nivers SUCCINATE 3-23 TABLET BY ity o f XL 50 mg 24 00:00: MOUTH ONCE [place] hr tablet 00 DAILY Medical Branch METOPROLOL Yes [id number] TAKE 1 U nivers SUCCINATE 3-23 TABLET BY ity o f XL 50 mg 24 00:00: MOUTH ONCE [place] hr tablet 00 DAILY Medical Branch METOPROLOL Yes [id number] TAKE 1 U nivers SUCCINATE 3-23 TABLET BY ity o f XL 50 mg 24 00:00: MOUTH ONCE [place] hr tablet 00 DAILY Medical Branch METOPROLOL 0 Yes [id number] TAKE 1 U nivers SUCCINATE 3-23 TABLET BY ity o f XL 50 mg 24 00:00: MOUTH ONCE [place] hr tablet DAILY Medical Branch METOPROLOL 0 Yes [id number] TAKE 1 U nivers SUCCINATE 3-23 TABLET BY ity o f XL 50 mg 24 00:00: MOUTH ONCE [place] hr tablet DAILY Medical Branch METOPROLOL 0 Yes [id number] TAKE 1 U nivers SUCCINATE 3-23 TABLET BY ity o f XL 50 mg 24 00:00: MOUTH ONCE [place] hr tablet DAILY Medical Branch METOPROLOL Yes [id number] TAKE 1 U nivers SUCCINATE 3-23 TABLET BY ity o f XL 50 mg 24 00:00: MOUTH ONCE [place] hr tablet DAILY Medical Branch METOPROLOL Yes [id number] TAKE 1 U nivers SUCCINATE 3-23 TABLET BY ity o f XL 50 mg 24 00:00: MOUTH ONCE [place] hr tablet DAILY Medical Branch METOPROLOL 0 Yes [id number] TAKE 1 U nivers SUCCINATE 3-23 TABLET BY ity o f XL 50 mg 24 00:00: MOUTH ONCE [place] hr tablet DAILY Medical Branch METOPROLOL 0 Yes [id number] TAKE 1 U nivers SUCCINATE 3-23 TABLET BY ity o f XL 50 mg 24 00:00: MOUTH ONCE [place] hr tablet DAILY Medical Branch METOPROLOL 0 Yes [id number] TAKE 1 U nivers SUCCINATE 3-23 TABLET BY ity o f XL 50 mg 24 00:00: MOUTH ONCE [place] hr tablet DAILY Medical Branch METOPROLOL 0 Yes [id number] TAKE 1 U nivers SUCCINATE 3-23 TABLET BY ity o f XL 50 mg 24 00:00: MOUTH ONCE [place] hr tablet DAILY Medical Branch METOPROLOL 0 Yes [id number] TAKE 1 U nivers SUCCINATE 3-23 TABLET BY ity o f XL 50 mg 24 00:00: MOUTH ONCE [place] hr tablet DAILY Medical Branch METOPROLOL 0 Yes [id number] TAKE 1 U nivers SUCCINATE 3-23 TABLET BY ity o f XL 50 mg 24 00:00: MOUTH ONCE [place] hr tablet DAILY Medical Branch METOPROLOL 0 Yes [id number] TAKE 1 U nivers SUCCINATE 3-23 TABLET BY ity o f XL 50 mg 24 00:00: MOUTH ONCE [place] hr tablet 00 DAILY Medical Branch METOPROLOL Yes [id number] TAKE 1 U nivers SUCCINATE 3-23 TABLET BY ity o f XL 50 mg 24 00:00: MOUTH ONCE [place] hr tablet 00 DAILY Medical Branch METOPROLOL Yes [id number] TAKE 1 U nivers SUCCINATE 3-23 TABLET BY ity o f XL 50 mg 24 00:00: MOUTH ONCE [place] hr tablet 00 DAILY Medical Branch METOPROLOL 0 Yes [id number] TAKE 1 U nivers SUCCINATE 3-23 TABLET BY ity o f XL 50 mg 24 00:00: MOUTH ONCE [place] hr tablet 00 DAILY Medical Branch METOPROLOL Yes [id number] TAKE 1 U nivers SUCCINATE 3-23 TABLET BY ity o f XL 50 mg 24 00:00: MOUTH ONCE [place] hr tablet 00 DAILY Medical Branch METOPROLOL Yes [id number] TAKE 1 U nivers SUCCINATE 3-23 TABLET BY ity o f XL 50 mg 24 00:00: MOUTH ONCE [place] hr tablet 00 DAILY Medical Branch METOPROLOL Yes [id number] TAKE 1 U nivers SUCCINATE 3-23 TABLET BY ity o f XL 50 mg 24 00:00: MOUTH ONCE [place] hr tablet 00 DAILY Medical Branch metoprolol 2020- No [id number] 50mg Take 50 mg Univers succinate 3-23 03-23 by mouth ity o f 50 mg CSpX 00:00: 00:00 [place]. [place] 00 :[place] [facility] sulfaSALAzi 2020- No 500mg Take 500 Univers ne 500 mg 3-10 03-10 mg by ity of tablet 21:44: 00:00 mouth 4 [place] 14 :00 (four) Medical times Branch daily. sulfaSALAzi 2020- No 500mg Take 500 Univers ne 500 mg 3-10 03-10 mg by ity of tablet 21:44: 00:00 mouth 4 [place] 14 :00 (four) Medical times Branch daily. foLIC acid Yes 1mg Take 1 mg [place] 1 mg tablet 3-10 by mouth ity of 21:16: daily. [place] 45 Medical [place] predniSONE 0 Yes 10mg Take 10 mg U nivers 10 mg 3-10 by mouth ity of tablet 21:16: daily. [address] methotrexat 2020-0 Yes 2.5mg Take 2.5 U nivers e 2.5 mg 3-10 mg by ity of tablet 21:16: mouth once [address] warfarin 5 2020-0 Yes 5mg Take 5 mg [place] mg tablet 3-10 by mouth. ity o f 21:16: [address] warfarin 2020-0 Yes Take by Univer s 2.5 mg 3-10 mouth. ity of tablet 21:16: [address] aspirin 2020-0 Yes 81mg Take 81 mg Univ ers (ADULT LOW 3-10 by mouth ity o f DOSE 21:16: daily. [place] ASPIRIN) 81 45 Medical mg EC Branch tablet atorvastati 0 Yes 40mg Take 40 mg Univers n 40 mg 3-10 by mouth ity of tablet 21:16: at [place] [address] bedtime. [facility] Branch cyclobenzap 0 Yes 10mg Take 10 mg Univers rine 10 mg 3-10 by mouth ity o f tablet 21:16: daily. [address] metoprolol 0 Yes Take by Univ ers succinate 3-10 mouth ity of 50 mg CSpX 21:16: daily. [address] foLIC acid 0 Yes 1mg Take 1 mg Un [place] 1 mg tablet 3-10 by mouth ity of 21:16: daily. [address] predniSONE 2020-0 Yes 10mg Take 10 mg U nivers 10 mg 3-10 by mouth ity of tablet 21:16: daily. [address] methotrexat 2020-0 Yes 2.5mg Take 2.5 U nivers e 2.5 mg 3-10 mg by ity of tablet 21:16: mouth once [address] warfarin 5 2020-0 Yes 5mg Take 5 mg [place] mg tablet 3-10 by mouth. ity o f 21:16: [address] warfarin 2020-0 Yes Take by Univer s 2.5 mg 3-10 mouth. ity of tablet 21:16: [address] aspirin 2020-0 Yes 81mg Take 81 mg Univ ers (ADULT LOW 3-10 by mouth ity o f DOSE 21:16: daily. [place] ASPIRIN) 81 45 Medical mg EC Branch tablet atorvastati 0 Yes 40mg Take 40 mg Univers n 40 mg 3-10 by mouth ity of tablet 21:16: at [place] [address] bedtime. Medical Branch cyclobenzap 0 Yes 10mg Take 10 mg Univers rine 10 mg 3-10 by mouth ity o f tablet 21:16: daily. [address] Branch metoprolol 0 Yes Take by Univ ers succinate 3-10 mouth ity of 50 mg CSpX 21:16: daily. [address] Branch foLIC acid 0 Yes 1mg Take 1 mg Un [place] 1 mg tablet 3-10 by mouth ity of 21:16: daily. [address] Branch predniSONE 0 Yes 10mg Take 10 mg U nivers 10 mg 3-10 by mouth ity of tablet 21:16: daily. [address] Branch methotrexat 0 Yes 2.5mg Take 2.5 U nivers e 2.5 mg 3-10 mg by ity of tablet 21:16: mouth once [place] [address] now Medical [place] warfarin 5 0 Yes 5mg Take 5 mg Un [place] mg tablet 3-10 by mouth. ity o f 21:16: [address] warfarin 0 Yes Take by Univer s 2.5 mg 3-10 mouth. ity of tablet 21:16: [address] aspirin 0 Yes 81mg Take 81 mg Univ ers (ADULT LOW 3-10 by mouth ity o f DOSE 21:16: daily. [place] ASPIRIN) 81 45 Medical mg EC Branch tablet atorvastati Yes 40mg Take 40 mg Univers n 40 mg 3-10 by mouth ity of tablet 21:16: at [place] [address] bedtime. Medical Branch cyclobenzap 0 Yes 10mg Take 10 mg Univers rine 10 mg 3-10 by mouth ity o f tablet 21:16: daily. [address] Branch metoprolol 0 Yes Take by Univ ers succinate 3-10 mouth ity of 50 mg CSpX 21:16: daily. [address] foLIC acid 2020-0 Yes 1mg Take 1 mg Un [place] 1 mg tablet 3-10 by mouth ity of 21:16: daily. [address] predniSONE 2020-0 Yes 10mg Take 10 mg U nivers 10 mg 3-10 by mouth ity of tablet 21:16: daily. [address] methotrexat 0 Yes 2.5mg Take 2.5 U nivers e 2.5 mg 3-10 mg by ity of tablet 21:16: mouth once [address] warfarin 5 0 Yes 5mg Take 5 mg Un [place] mg tablet 3-10 by mouth. ity o f 21:16: [address] warfarin 2020-0 Yes Take by Univer s 2.5 mg 3-10 mouth. ity of tablet 21:16: [address] aspirin 2020-0 Yes 81mg Take 81 mg Univ ers (ADULT LOW 3-10 by mouth ity o f DOSE 21:16: daily. [place] ASPIRIN) 81 45 Medical mg EC Branch tablet atorvastati 0 Yes 40mg Take 40 mg Univers n 40 mg 3-10 by mouth ity of tablet 21:16: at [place] [address] bedtime. [facility] Branch cyclobenzap 0 Yes 10mg Take 10 mg Univers rine 10 mg 3-10 by mouth ity o f tablet 21:16: daily. [address] metoprolol 0 Yes Take by Univ ers succinate 3-10 mouth ity of 50 mg CSpX 21:16: daily. [address] foLIC acid 0 Yes 1mg Take 1 mg [place] 1 mg tablet 3-10 by mouth ity of 21:16: daily. [address] predniSONE 2020-0 Yes 10mg Take 10 mg U nivers 10 mg 3-10 by mouth ity of tablet 21:16: daily. [address] methotrexat 0 Yes 2.5mg Take 2.5 U nivers e 2.5 mg 3-10 mg by ity of tablet 21:16: mouth once [address] warfarin 5 0 Yes 5mg Take 5 mg [place] mg tablet 3-10 by mouth. ity o f 21:16: [address] warfarin 2020-0 Yes Take by Univer s 2.5 mg 3-10 mouth. ity of tablet 21:16: [address] aspirin 2020-0 Yes 81mg Take 81 mg Univ ers (ADULT LOW 3-10 by mouth ity o f DOSE 21:16: daily. [place] ASPIRIN) 81 45 Medical mg EC Branch tablet atorvastati 2020-0 Yes 40mg Take 40 mg Univers n 40 mg 3-10 by mouth ity of tablet 21:16: at [place] [address] bedtime. Medical Branch cyclobenzap 2020-0 Yes 10mg Take 10 mg Univers rine 10 mg 3-10 by mouth ity o f tablet 21:16: daily. [address] foLIC acid 2020-0 Yes 1mg Take 1 mg [place] 1 mg tablet 3-10 by mouth ity of 21:16: daily. [address] predniSONE 2020-0 Yes 10mg Take 10 mg U nivers 10 mg 3-10 by mouth ity of tablet 21:16: daily. [address] methotrexat 0 Yes 2.5mg Take 2.5 U nivers e 2.5 mg 3-10 mg by ity of tablet 21:16: mouth once [address] warfarin 5 0 Yes 5mg Take 5 mg [place] mg tablet 3-10 by mouth. ity o f 21:16: [address] warfarin 2020-0 Yes Take by Univer s 2.5 mg 3-10 mouth. ity of tablet 21:16: [address] aspirin 2020-0 Yes 81mg Take 81 mg Univ ers (ADULT LOW 3-10 by mouth ity o f DOSE 21:16: daily. [place] ASPIRIN) 81 45 Medical mg Branch tablet atorvastati 2020-0 Yes 40mg Take 40 mg Univers n 40 mg 3-10 by mouth ity of tablet 21:16: at [place] [address] bedtime. [facility] Branch cyclobenzap 2020-0 Yes 10mg Take 10 mg Univers rine 10 mg 3-10 by mouth ity o f tablet 21:16: daily. [address] foLIC acid 2020-0 Yes 1mg Take 1 mg [place] 1 mg tablet 3-10 by mouth ity of 21:16: daily. [address] predniSONE 2020-0 Yes 10mg Take 10 mg U nivers 10 mg 3-10 by mouth ity of tablet 21:16: daily. [address] methotrexat 2020-0 Yes 2.5mg Take 2.5 U nivers e 2.5 mg 3-10 mg by ity of tablet 21:16: mouth once [place] 45 now Medical Branch warfarin 5 2020-0 Yes 5mg Take 5 mg [place] mg tablet 3-10 by mouth. ity o f 21:16: [address] warfarin 2020-0 Yes Take by Univer s 2.5 mg 3-10 mouth. ity of tablet 21:16: [address] aspirin 2020-0 Yes 81mg Take 81 mg Univ ers (ADULT LOW 3-10 by mouth ity o f DOSE 21:16: daily. [place] ASPIRIN) 81 45 Medical mg EC Branch tablet atorvastati 2020-0 Yes 40mg Take 40 mg Univers n 40 mg 3-10 by mouth ity of tablet 21:16: at [place] [address] bedtime. Medical Branch cyclobenzap 2020-0 Yes 10mg Take 10 mg Univers rine 10 mg 3-10 by mouth ity o f tablet 21:16: daily. [address] foLIC acid 2020-0 Yes 1mg Take 1 mg [place] 1 mg tablet 3-10 by mouth ity of 21:16: daily. [address] predniSONE 2020-0 Yes 10mg Take 10 mg U nivers 10 mg 3-10 by mouth ity of tablet 21:16: daily. [address] methotrexat 2020-0 Yes 2.5mg Take 2.5 U nivers e 2.5 mg 3-10 mg by ity of tablet 21:16: mouth once [address] warfarin 5 2020-0 Yes 5mg Take 5 mg [place] mg tablet 3-10 by mouth. ity o f 21:16: [address] warfarin 2020-0 Yes Take by Univer s 2.5 mg 3-10 mouth. ity of tablet 21:16: [address] aspirin 2020-0 Yes 81mg Take 81 mg Univ ers (ADULT LOW 3-10 by mouth ity o f DOSE 21:16: daily. [place] ASPIRIN) 81 45 Medical mg EC Branch tablet atorvastati 2020-0 Yes 40mg Take 40 mg Univers n 40 mg 3-10 by mouth ity of tablet 21:16: at [place] [address] bedtime. Medical Branch cyclobenzap 2020-0 Yes 10mg Take 10 mg Univers rine 10 mg 3-10 by mouth ity o f tablet 21:16: daily. [address] foLIC acid 2020-0 Yes 1mg Take 1 mg [place] 1 mg tablet 3-10 by mouth ity of 21:16: daily. [address] predniSONE 2020-0 Yes 10mg Take 10 mg U nivers 10 mg 3-10 by mouth ity of tablet 21:16: daily. [address] Branch methotrexat 2020-0 Yes 2.5mg Take 2.5 U nivers e 2.5 mg 3-10 mg by ity of tablet 21:16: mouth once [address] warfarin 5 2020-0 Yes 5mg Take 5 mg [place] mg tablet 3-10 by mouth. ity o f 21:16: [address] warfarin 2020-0 Yes Take by Univer s 2.5 mg 3-10 mouth. ity of tablet 21:16: [address] aspirin 2020-0 Yes 81mg Take 81 mg Univ ers (ADULT LOW 3-10 by mouth ity o f DOSE 21:16: daily. [place] ASPIRIN) 81 45 [facility] Branch tablet atorvastati 0 Yes 40mg Take 40 mg Univers n 40 mg 3-10 by mouth ity of tablet 21:16: at [place] [address] bedtime. [facility] Branch cyclobenzap 2020-0 Yes 10mg Take 10 mg Univers rine 10 mg 3-10 by mouth ity o f tablet 21:16: daily. [address] foLIC acid 2020-0 Yes 1mg Take 1 mg [place] 1 mg tablet 3-10 by mouth ity of 21:16: daily. [address] predniSONE 2020-0 Yes 10mg Take 10 mg U nivers 10 mg 3-10 by mouth ity of tablet 21:16: daily. [address] methotrexat 2020-0 Yes 2.5mg Take 2.5 U nivers e 2.5 mg 3-10 mg by ity of tablet 21:16: mouth once [address] warfarin 5 2020-0 Yes 5mg Take 5 mg [place] mg tablet 3-10 by mouth. ity o f 21:16: [address] warfarin 2020-0 Yes Take by Univer s 2.5 mg 3-10 mouth. ity of tablet 21:16: [address] aspirin 2020-0 Yes 81mg Take 81 mg Univ ers (ADULT LOW 3-10 by mouth ity o f DOSE 21:16: daily. [place] ASPIRIN) 81 45 Medical mg EC Branch tablet atorvastati 2020-0 Yes 40mg Take 40 mg Univers n 40 mg 3-10 by mouth ity of tablet 21:16: at [place] [address] bedtime. Medical Branch cyclobenzap 2020-0 Yes 10mg Take 10 mg Univers rine 10 mg 3-10 by mouth ity o f tablet 21:16: daily. [address] foLIC acid 2020-0 Yes 1mg Take 1 mg [place] 1 mg tablet 3-10 by mouth ity of 21:16: daily. [address] predniSONE 2020-0 Yes 10mg Take 10 mg U nivers 10 mg 3-10 by mouth ity of tablet 21:16: daily. [address] methotrexat 2020-0 Yes 2.5mg Take 2.5 U nivers e 2.5 mg 3-10 mg by ity of tablet 21:16: mouth once [address] warfarin 5 2020-0 Yes 5mg Take 5 mg [facility] mg tablet 3-10 by mouth. ity o f 21:16: [address] warfarin 2020-0 Yes Take by [facility] 2.5 mg 3-10 mouth. ity of tablet 21:16: [address] aspirin 2020-0 Yes 81mg Take 81 mg [facility] (ADULT LOW 3-10 by mouth ity o f DOSE 21:16: daily. [place] ASPIRIN) 81 45 Medical mg EC Branch tablet atorvastati 2020-0 Yes 40mg Take 40 mg [facility] n 40 mg 3-10 by mouth ity of tablet 21:16: at [place] [address] bedtime. Medical Branch cyclobenzap 2020-0 Yes 10mg Take 10 mg [facility] 10 mg 3-10 by mouth ity o f tablet 21:16: daily. [address] foLIC acid 2020-0 Yes 1mg Take 1 mg [facility] [place] 1 mg tablet 3-10 by mouth ity of 21:16: daily. [address] predniSONE 2020-0 Yes 10mg Take 10 mg [facility] 10 mg 3-10 by mouth ity of tablet 21:16: daily. [address] methotrexat 2020-0 Yes 2.5mg Take 2.5 [facility] 2.5 mg 3-10 mg by ity of tablet 21:16: mouth once [address] warfarin 5 2020-0 Yes 5mg Take 5 mg [facility] [place] mg tablet 3-10 by mouth. ity o f 21:16: [address] warfarin 2020-0 Yes Take by [facility] 2.5 mg 3-10 mouth. ity of tablet 21:16: [address] aspirin 2020-0 Yes 81mg Take 81 mg [facility] (ADULT LOW 3-10 by mouth ity o f DOSE 21:16: daily. [place] ASPIRIN) 81 45 Medical mg EC Branch tablet atorvastati 2020-0 Yes 40mg Take 40 mg [facility] n 40 mg 3-10 by mouth ity of tablet 21:16: at [place] [address] bedtime. Medical Branch cyclobenzap 2020-0 Yes 10mg Take 10 mg [facility] 10 mg 3-10 by mouth ity o f tablet 21:16: daily. [address] foLIC acid 2020-0 Yes 1mg Take 1 mg [facility] [place] 1 mg tablet 3-10 by mouth ity of 21:16: daily. [address] predniSONE 2020-0 Yes 10mg Take 10 mg [facility] 10 mg 3-10 by mouth ity of tablet 21:16: daily. [address] methotrexat 2020-0 Yes 2.5mg Take 2.5 U n[facility] e 2.5 mg 3-10 mg by ity of tablet 21:16: mouth once [address] warfarin 5 2020-0 Yes 5mg Take 5 mg [facility] [place] mg tablet 3-10 by mouth. ity o f 21:16: [address] warfarin 2020-0 Yes Take by [facility] 2.5 mg 3-10 mouth. ity of tablet 21:16: [address] aspirin 2020-0 Yes 81mg Take 81 mg [facility] (ADULT LOW 3-10 by mouth ity o f DOSE 21:16: daily. [place] ASPIRIN) 81 45 Medical mg EC Branch tablet atorvastati 2020-0 Yes 40mg Take 40 mg [facility] n 40 mg 3-10 by mouth ity of tablet 21:16: at [place] [address] bedtime. Medical Branch cyclobenzap 2020-0 Yes 10mg Take 10 mg [facility] 10 mg 3-10 by mouth ity o f tablet 21:16: daily. [address] foLIC acid 2020-0 Yes 1mg Take 1 mg [facility] [place] 1 mg tablet 3-10 by mouth ity of 21:16: daily. [address] predniSONE 2020-0 Yes 10mg Take 10 mg [facility] 10 mg 3-10 by mouth ity of tablet 21:16: daily. [address] Branch methotrexat 2020-0 Yes 2.5mg Take 2.5 [facility] n[facility] 2.5 mg 3-10 mg by ity of tablet 21:16: mouth once [address] Branch warfarin 5 2020-0 Yes 5mg Take 5 mg [facility] [place] mg tablet 3-10 by mouth. ity o f 21:16: [address] warfarin 2020-0 Yes Take by [facility] 2.5 mg 3-10 mouth. ity of tablet 21:16: [address] aspirin 2020-0 Yes 81mg Take 81 mg [facility] (ADULT LOW 3-10 by mouth ity o f DOSE 21:16: daily. [place] ASPIRIN) [facility] [place] [place] Branch tablet atorvastati 0 Yes 40mg Take 40 mg [facility] n 40 mg 3-10 by mouth ity of tablet 21:16: at [place] [address] bedtime. [facility] Branch cyclobenzap 2020-0 Yes 10mg Take 10 mg [facility] 10 mg 3-10 by mouth ity o f tablet 21:16: daily. [address] foLIC acid 2020-0 Yes 1mg Take 1 mg [facility] [place] 1 mg tablet 3-10 by mouth ity of 21:16: daily. [address] predniSONE 2020-0 Yes 10mg Take 10 mg [facility] n[facility] 10 mg 3-10 by mouth ity of tablet 21:16: daily. [address] methotrexat 2020-0 Yes 2.5mg Take 2.5 U n[facility] e 2.5 mg 3-10 mg by ity of tablet 21:16: mouth once [address] warfarin 5 2020-0 Yes 5mg Take 5 mg [facility] [place] mg tablet 3-10 by mouth. ity o f 21:16: [address] warfarin 2020-0 Yes Take by [facility] 2.5 mg 3-10 mouth. ity of tablet 21:16: [address] aspirin 2020-0 Yes 81mg Take 81 mg [facility] (ADULT LOW 3-10 by mouth ity o f DOSE 21:16: daily. [place] ASPIRIN) 81 45 Medical mg EC Branch tablet atorvastati 2020-0 Yes 40mg Take 40 mg [facility] n 40 mg 3-10 by mouth ity of tablet 21:16: at [place] [address] bedtime. Medical Branch cyclobenzap 2020-0 Yes 10mg Take 10 mg [facility] 10 mg 3-10 by mouth ity o f tablet 21:16: daily. [address] foLIC acid 2020-0 Yes 1mg Take 1 mg [facility] [place] 1 mg tablet 3-10 by mouth ity of 21:16: daily. [address] predniSONE 2020-0 Yes 10mg Take 10 mg [facility] n[facility] 10 mg 3-10 by mouth ity of tablet 21:16: daily. [address] Branch methotrexat 2020-0 Yes 2.5mg Take 2.5 U n[facility] e 2.5 mg 3-10 mg by ity of tablet 21:16: mouth once [address] warfarin 5 2020-0 Yes 5mg Take 5 mg [facility] [place] mg tablet 3-10 by mouth. ity o f 21:16: [address] warfarin 2020-0 Yes Take by [facility] 2.5 mg 3-10 mouth. ity of tablet 21:16: [address] aspirin 2020-0 Yes 81mg Take 81 mg [facility] (ADULT LOW 3-10 by mouth ity o f DOSE 21:16: daily. [place] ASPIRIN) 81 45 Medical mg EC Branch tablet atorvastati 2020-0 Yes 40mg Take 40 mg [facility] n 40 mg 3-10 by mouth ity of tablet 21:16: at [place] [address] bedtime. Medical Branch cyclobenzap 2020-0 Yes 10mg Take 10 mg [facility] 10 mg 3-10 by mouth ity o f tablet 21:16: daily. [address] foLIC acid 2020-0 Yes 1mg Take 1 mg [facility] [place] 1 mg tablet 3-10 by mouth ity of 21:16: daily. [address] predniSONE 2020-0 Yes 10mg Take 10 mg [facility] n[facility] 10 mg 3-10 by mouth ity of tablet 21:16: daily. [address] methotrexat 2020-0 Yes 2.5mg Take 2.5 U n[facility] e 2.5 mg 3-10 mg by ity of tablet 21:16: mouth once [address] warfarin 5 2020-0 Yes 5mg Take 5 mg [facility] [place] mg tablet 3-10 by mouth. ity o f 21:16: [address] warfarin 2020-0 Yes Take by [facility] 2.5 mg 3-10 mouth. ity of tablet 21:16: [address] aspirin 2020-0 Yes 81mg Take 81 mg [facility] (ADULT LOW 3-10 by mouth ity o f DOSE 21:16: daily. [place] ASPIRIN) 81 45 Medical mg EC Branch tablet atorvastati 2020-0 Yes 40mg Take 40 mg [facility] n 40 mg 3-10 by mouth ity of tablet 21:16: at [place] [address] bedtime. Medical Branch cyclobenzap 2020-0 Yes 10mg Take 10 mg [facility] 10 mg 3-10 by mouth ity o f tablet 21:16: daily. [address] foLIC acid 2020-0 Yes 1mg Take 1 mg [facility] [place] 1 mg tablet 3-10 by mouth ity of 21:16: daily. [address] predniSONE 2020-0 Yes 10mg Take 10 mg [facility] n[facility] 10 mg 3-10 by mouth ity of tablet 21:16: daily. [address] methotrexat 2020-0 Yes 2.5mg Take 2.5 U nivers e 2.5 mg 3-10 mg by ity of tablet 21:16: mouth once [address] warfarin 5 2020-0 Yes 5mg Take 5 mg [facility] [place] mg tablet 3-10 by mouth. ity o f 21:16: [address] warfarin 2020-0 Yes Take by [facility] 2.5 mg 3-10 mouth. ity of tablet 21:16: [address] aspirin 2020-0 Yes 81mg Take 81 mg [facility] (ADULT LOW 3-10 by mouth ity o f DOSE 21:16: daily. [place] ASPIRIN) 81 45 Medical mg EC Branch tablet atorvastati 2020-0 Yes 40mg Take 40 mg Univers n 40 mg 3-10 by mouth ity of tablet 21:16: at [place] [address] bedtime. [facility] Branch cyclobenzap 2020-0 Yes 10mg Take 10 mg [facility] 10 mg 3-10 by mouth ity o f tablet 21:16: daily. [address] foLIC acid 2021-0 Yes 1mg Take 1 mg [facility] [place] 1 mg tablet 3-10 by mouth ity of 21:16: daily. [address] predniSONE 2020-0 Yes 10mg Take 10 mg U nivers 10 mg 3-10 by mouth ity of tablet 21:16: daily. [address] Branch methotrexat 0 Yes 2.5mg Take 2.5 U nivers e 2.5 mg 3-10 mg by ity of tablet 21:16: mouth once [address] warfarin 5 0 Yes 5mg Take 5 mg [facility] [place] mg tablet 3-10 by mouth. ity o f 21:16: [address] warfarin 2020-0 Yes Take by [facility] 2.5 mg 3-10 mouth. ity of tablet 21:16: [address] aspirin 0 Yes 81mg Take 81 mg [facility] (ADULT LOW 3-10 by mouth ity o f DOSE 21:16: daily. [place] ASPIRIN) 81 45 Medical mg Branch tablet atorvastati 0 Yes 40mg Take 40 mg [facility] n 40 mg 3-10 by mouth ity of tablet 21:16: at [place] [address] bedtime. Medical Branch cyclobenzap Yes 10mg Take 10 mg [facility] 10 mg 3-10 by mouth ity o f tablet 21:16: daily. [address] foLIC acid 0 Yes 1mg Take 1 mg [facility] [place] 1 mg tablet 3-10 by mouth ity of 21:16: daily. [address] methotrexat Yes 2.5mg Take 2.5 U n[facility] e 2.5 mg 3-10 mg by ity of tablet 21:16: mouth once [address] warfarin 5 Yes 5mg Take 5 mg [facility] [place] mg tablet 3-10 by mouth. ity o f 21:16: [address] warfarin 2020-0 Yes Take by [facility] 2.5 mg 3-10 mouth. ity of tablet 21:16: [address] aspirin 2020-0 Yes 81mg Take 81 mg [facility] (ADULT LOW 3-10 by mouth ity o f DOSE 21:16: daily. [place] ASPIRIN) 81 45 Medical mg Branch tablet atorvastati 0 Yes 40mg Take 40 mg [facility] n 40 mg 3-10 by mouth ity of tablet 21:16: at [place] [address] bedtime. Medical Branch cyclobenzap 2020-0 Yes 10mg Take 10 mg [facility] 10 mg 3-10 by mouth ity o f tablet 21:16: daily. [address] Branch foLIC acid 2020-0 Yes 1mg Take 1 mg [facility] [place] 1 mg tablet 3-10 by mouth ity of 21:16: daily. [address] Branch methotrexat 2020-0 Yes 2.5mg Take 2.5 U n[facility] e 2.5 mg 3-10 mg by ity of tablet 21:16: mouth once [address] Medical Branch warfarin 5 2020-0 Yes 5mg Take 5 mg [facility] [place] mg tablet 3-10 by mouth. ity o f 21:16: [address] warfarin 2020-0 Yes Take by Univer [facility] 2.5 mg 3-10 mouth. ity of tablet 21:16: [address] Branch aspirin 2020-0 Yes 81mg Take 81 mg [facility] (ADULT LOW 3-10 by mouth ity o f DOSE 21:16: daily. [place] ASPIRIN) 81 45 Medical mg EC Branch tablet cyclobenzap 2020-0 Yes 10mg Take 10 mg [facility] 10 mg 3-10 by mouth ity o f tablet 21:16: daily. [address] Branch foLIC acid 2020-0 Yes 1mg Take 1 mg [facility] [place] 1 mg tablet 3-10 by mouth ity of 21:16: daily. [address] Branch methotrexat 2020-0 Yes 2.5mg Take 2.5 U nivers e 2.5 mg 3-10 mg by ity of tablet 21:16: mouth once [address] Branch warfarin 5 2020-0 Yes 5mg Take 5 mg [facility] [place] mg tablet 3-10 by mouth. ity o f 21:16: [address] warfarin 2020-0 Yes Take by Univer [facility] 2.5 mg 3-10 mouth. ity of tablet 21:16: [address] Branch aspirin 2020-0 Yes 81mg Take 81 mg [facility] (ADULT LOW 3-10 by mouth ity o f DOSE 21:16: daily. [place] ASPIRIN) 81 45 Medical mg EC Branch tablet cyclobenzap 2020-0 Yes 10mg Take 10 mg [facility] 10 mg 3-10 by mouth ity o f tablet 21:16: daily. [address] foLIC acid 2020-0 Yes 1mg Take 1 mg [facility] [place] 1 mg tablet 3-10 by mouth ity of 21:16: daily. [address] methotrexat 2020-0 Yes 2.5mg Take 2.5 U nivers e 2.5 mg 3-10 mg by ity of tablet 21:16: mouth once [address] warfarin 5 2020-0 Yes 5mg Take 5 mg [facility] [place] mg tablet 3-10 by mouth. ity o f 21:16: [address] warfarin 2020-0 Yes Take by Univer [facility] 2.5 mg 3-10 mouth. ity of tablet 21:16: [address] aspirin 2020-0 Yes 81mg Take 81 mg [facility] (ADULT LOW 3-10 by mouth ity o f DOSE 21:16: daily. [place] ASPIRIN) 81 45 Medical mg EC Branch tablet cyclobenzap 2020-0 Yes 10mg Take 10 mg [facility] 10 mg 3-10 by mouth ity o f tablet 21:16: daily. [address] foLIC acid 2020-0 Yes 1mg Take 1 mg [facility] [place] 1 mg tablet 3-10 by mouth ity of 21:16: daily. [address] methotrexat 2020-0 Yes 2.5mg Take 2.5 U nivers e 2.5 mg 3-10 mg by ity of tablet 21:16: mouth once [address] warfarin 5 2020-0 Yes 5mg Take 5 mg [facility] [place] mg tablet 3-10 by mouth. ity o f 21:16: [address] warfarin 2020-0 Yes Take by Univer [facility] 2.5 mg 3-10 mouth. ity of tablet 21:16: [address] aspirin 2020-0 Yes 81mg Take 81 mg [facility] (ADULT LOW 3-10 by mouth ity o f DOSE 21:16: daily. [place] ASPIRIN) 81 45 Medical mg EC Branch tablet cyclobenzap 1-0 Yes 10mg Take 10 mg [facility] 10 mg 3-10 by mouth ity o f tablet 21:16: daily. [address] foLIC acid 1-0 Yes 1mg Take 1 mg [facility] [place] 1 mg tablet 3-10 by mouth ity of 21:16: daily. [address] methotrexat 1-0 Yes 2.5mg Take 2.5 U nivers e 2.5 mg 3-10 mg by ity of tablet 21:16: mouth once [address] warfarin 5 2020-0 Yes 5mg Take 5 mg [facility] [place] mg tablet 3-10 by mouth. ity o f 21:16: [address] warfarin 2020-0 Yes Take by Univer [facility] 2.5 mg 3-10 mouth. ity of tablet 21:16: [address] aspirin 1-0 Yes 81mg Take 81 mg [facility] (ADULT LOW 3-10 by mouth ity o f DOSE 21:16: daily. [place] ASPIRIN) 81 45 Medical mg EC Branch tablet cyclobenzap 2020-0 Yes 10mg Take 10 mg [facility] 10 mg 3-10 by mouth ity o f tablet 21:16: daily. [address] foLIC acid 2020-0 Yes 1mg Take 1 mg [facility] [place] 1 mg tablet 3-10 by mouth ity of 21:16: daily. [address] methotrexat 2020-0 Yes 2.5mg Take 2.5 U n[facility] e 2.5 mg 3-10 mg by ity of tablet 21:16: mouth once [address] warfarin 5 2020-0 Yes 5mg Take 5 mg [facility] [place] mg tablet 3-10 by mouth. ity o f 21:16: [address] warfarin 2020-0 Yes Take by Univer [facility] 2.5 mg 3-10 mouth. ity of tablet 21:16: [address] aspirin 1-0 Yes 81mg Take 81 mg [facility] (ADULT LOW 3-10 by mouth ity o f DOSE 21:16: daily. [place] ASPIRIN) 81 45 Medical mg EC Branch tablet cyclobenzap 2020-0 Yes 10mg Take 10 mg [facility] 10 mg 3-10 by mouth ity o f tablet 21:16: daily. [address] foLIC acid 2021-0 Yes 1mg Take 1 mg [facility] [place] 1 mg tablet 3-10 by mouth ity of 21:16: daily. [address] methotrexat 1-0 Yes 2.5mg Take 2.5 U n[facility] e 2.5 mg 3-10 mg by ity of tablet 21:16: mouth once [address] warfarin 5 2020-0 Yes 5mg Take 5 mg [facility] [place] mg tablet 3-10 by mouth. ity o f 21:16: [address] warfarin 2020-0 Yes Take by Univer [facility] 2.5 mg 3-10 mouth. ity of tablet 21:16: [address] aspirin 2020-0 Yes 81mg Take 81 mg [facility] (ADULT LOW 3-10 by mouth ity o f DOSE 21:16: daily. [place] ASPIRIN) 81 45 Medical mg EC Branch tablet cyclobenzap 2020-0 Yes 10mg Take 10 mg [facility] 10 mg 3-10 by mouth ity o f tablet 21:16: daily. [address] foLIC acid 2020-0 Yes 1mg Take 1 mg [facility] [place] 1 mg tablet 3-10 by mouth ity of 21:16: daily. [address] methotrexat 2020-0 Yes 2.5mg Take 2.5 U nivers e 2.5 mg 3-10 mg by ity of tablet 21:16: mouth once [address] warfarin 5 2020-0 Yes 5mg Take 5 mg [facility] [place] mg tablet 3-10 by mouth. ity o f 21:16: [address] warfarin 2020-0 Yes Take by Univer [facility] 2.5 mg 3-10 mouth. ity of tablet 21:16: [address] aspirin 2020-0 Yes 81mg Take 81 mg [facility] (ADULT LOW 3-10 by mouth ity o f DOSE 21:16: daily. [place] ASPIRIN) 81 45 Medical mg Branch tablet cyclobenzap 2020-0 Yes 10mg Take 10 mg [facility] 10 mg 3-10 by mouth ity o f tablet 21:16: daily. [address] foLIC acid 2020-0 Yes 1mg Take 1 mg [facility] [place] 1 mg tablet 3-10 by mouth ity of 21:16: daily. [address] methotrexat 2020-0 Yes 2.5mg Take 2.5 U nivers e 2.5 mg 3-10 mg by ity of tablet 21:16: mouth once [address] warfarin 5 2020-0 Yes 5mg Take 5 mg [facility] [place] mg tablet 3-10 by mouth. ity o f 21:16: [address] warfarin 2020-0 Yes Take by Univer [facility] 2.5 mg 3-10 mouth. ity of tablet 21:16: [address] aspirin 2020-0 Yes 81mg Take 81 mg [facility] ers (ADULT LOW 3-10 by mouth ity o f DOSE 21:16: daily. [place] ASPIRIN) 81 45 Medical mg EC Branch tablet cyclobenzap 2020-0 Yes 10mg Take 10 mg [facility] 10 mg 3-10 by mouth ity o f tablet 21:16: daily. [address] foLIC acid 2020-0 Yes 1mg Take 1 mg [facility] [place] 1 mg tablet 3-10 by mouth ity of 21:16: daily. [address] methotrexat 2020-0 Yes 2.5mg Take 2.5 U nivers e 2.5 mg 3-10 mg by ity of tablet 21:16: mouth once [address] warfarin 5 2020-0 Yes 5mg Take 5 mg [facility] [place] mg tablet 3-10 by mouth. ity o f 21:16: [address] warfarin 2020-0 Yes Take by Univer [facility] 2.5 mg 3-10 mouth. ity of tablet 21:16: [address] aspirin 2020-0 Yes 81mg Take 81 mg [facility] (ADULT LOW 3-10 by mouth ity o f DOSE 21:16: daily. [place] ASPIRIN) 81 45 Medical mg Branch tablet cyclobenzap 0 Yes 10mg Take 10 mg [facility] 10 mg 3-10 by mouth ity o f tablet 21:16: daily. [address] foLIC acid 2020-0 Yes 1mg Take 1 mg [facility] [place] 1 mg tablet 3-10 by mouth ity of 21:16: daily. [address] methotrexat 2020-0 Yes 2.5mg Take 2.5 U nivers e 2.5 mg 3-10 mg by ity of tablet 21:16: mouth once [address] warfarin 5 2020-0 Yes 5mg Take 5 mg [facility] [place] mg tablet 3-10 by mouth. ity o f 21:16: [address] warfarin 2020-0 Yes Take by Univer [facility] 2.5 mg 3-10 mouth. ity of tablet 21:16: [address] aspirin 2020-0 Yes 81mg Take 81 mg [facility] (ADULT LOW 3-10 by mouth ity o f DOSE 21:16: daily. [place] ASPIRIN) 81 45 Medical mg EC Branch tablet cyclobenzap 0 Yes 10mg Take 10 mg [facility] 10 mg 3-10 by mouth ity o f tablet 21:16: daily. [address] Branch foLIC acid 0 Yes 1mg Take 1 mg [facility] [place] 1 mg tablet 3-10 by mouth ity of 21:16: daily. [address] Branch methotrexat 0 Yes 2.5mg Take 2.5 U nivers e 2.5 mg 3-10 mg by ity of tablet 21:16: mouth once [place] [address] now Medical Branch warfarin 5 0 Yes 5mg Take 5 mg [place] mg tablet 3-10 by mouth. ity o f 21:16: [address] Branch warfarin 2020-0 Yes Take by Univer [facility] 2.5 mg 3-10 mouth. ity of tablet 21:16: [address] Branch aspirin Yes 81mg Take 81 mg [facility] (ADULT LOW 3-10 by mouth ity o f DOSE 21:16: daily. [place] ASPIRIN) 81 45 Medical mg EC Branch tablet atorvastati Yes 40mg Take 40 mg Univers n 40 mg 3-10 by mouth ity of tablet 21:16: at [place] [address] bedtime. Medical Branch cyclobenzap 0 Yes 10mg Take 10 mg [facility] rine 10 mg 3-10 by mouth ity o f tablet 21:16: daily. [address] Branch metoprolol 0 Yes Take by Univ ers succinate 3-10 mouth ity of 50 mg CSpX 21:16: daily. [address] Branch sulfaSALAzi 0 Yes [id number] 500mg Take 1 Univers ne 500 mg 3-10 tablet by ity o f tablet 00:00: mouth 2 [place] (two) Medical times [place] daily. clotrimazol 0 Yes [id number] Apply to Univers e 1 % 3-10 area(s) 2 ity of topical 00:00: (two) [place] cream 00 times Medical daily. Branch sulfaSALAzi Yes [id number] 500mg Take 1 Univers ne 500 mg 3-10 tablet by ity o f tablet 00:00: mouth 2 [place] 00 (two) Medical times Branch daily. clotrimazol 2020-0 Yes [id number] Apply to Univers e 1 % 3-10 area(s) 2 ity of topical 00:00: (two) [place] cream 00 times Medical daily. Branch sulfaSALAzi 1-0 Yes [id number] 500mg Take 1 Univers ne 500 mg 3-10 tablet by ity o f tablet 00:00: mouth 2 00 (two) Medical times Branch daily. clotrimazol 2021-0 Yes [id number] Apply to Univers e 1 % 3-10 area(s) 2 ity of topical 00:00: (two) [place] cream 00 times Medical daily. Branch sulfaSALAzi 2020-0 Yes [id number] 500mg Take 1 Univers ne 500 mg 3-10 tablet by ity o f tablet 00:00: mouth 2 (two) Medical times Branch daily. clotrimazol 2021-0 Yes [id number] Apply to Univers e 1 % 3-10 area(s) 2 ity of topical 00:00: (two) [place] cream 00 times Medical daily. Branch sulfaSALAzi 2020-0 Yes [id number] 500mg Take 1 Univers ne 500 mg 3-10 tablet by ity o f tablet 00:00: mouth 2 (two) Medical times Branch daily. clotrimazol 2021-0 Yes [id number] Apply to Univers e 1 % 3-10 area(s) 2 ity of topical 00:00: (two) [place] cream 00 times Medical daily. Branch sulfaSALAzi 1-0 Yes [id number] 500mg Take 1 Univers ne 500 mg 3-10 tablet by ity o f tablet 00:00: mouth 2 (two) Medical times Branch daily. clotrimazol 2021-0 Yes [id number] Apply to Univers e 1 % 3-10 area(s) 2 ity of topical 00:00: (two) [place] cream 00 times Medical daily. Branch sulfaSALAzi 1-0 Yes [id number] 500mg Take 1 Univers ne 500 mg 3-10 tablet by ity o f tablet 00:00: mouth 2 00 (two) Medical times Branch daily. clotrimazol 2021-0 Yes [id number] Apply to Univers e 1 % 3-10 area(s) 2 ity of topical 00:00: (two) [place] cream 00 times Medical daily. Branch sulfaSALAzi 2020-0 Yes [id number] 500mg Take 1 Univers ne 500 mg 3-10 tablet by ity o f tablet 00:00: mouth 2 (two) Medical times Branch daily. clotrimazol 1-0 Yes [id number] Apply to Univers e 1 % 3-10 area(s) 2 ity of topical 00:00: (two) [place] cream 00 times Medical daily. Branch sulfaSALAzi 2020-0 Yes [id number] 500mg Take 1 Univers ne 500 mg 3-10 tablet by ity o f tablet 00:00: mouth 2 (two) Medical times Branch daily. clotrimazol 1-0 Yes [id number] Apply to Univers e 1 % 3-10 area(s) 2 ity of topical 00:00: (two) [place] cream 00 times Medical daily. Branch sulfaSALAzi 2020-0 Yes [id number] 500mg Take 1 Univers ne 500 mg 3-10 tablet by ity o f tablet 00:00: mouth 2 (two) Medical times Branch daily. clotrimazol 1-0 Yes [id number] Apply to Univers e 1 % 3-10 area(s) 2 ity of topical 00:00: (two) [place] cream 00 times Medical daily. Branch sulfaSALAzi 2020-0 Yes [id number] 500mg Take 1 Univers ne 500 mg 3-10 tablet by ity o f tablet 00:00: mouth 2 (two) Medical times Branch daily. clotrimazol 1-0 Yes [id number] Apply to Univers e 1 % 3-10 area(s) 2 ity of topical 00:00: (two) [place] cream 00 times Medical daily. Branch sulfaSALAzi 2020-0 Yes [id number] 500mg Take 1 Univers ne 500 mg 3-10 tablet by ity o f tablet 00:00: mouth 2 (two) Medical times Branch daily. clotrimazol 2021-0 Yes [id number] Apply to Univers e 1 % 3-10 area(s) 2 ity of topical 00:00: (two) [place] cream 00 times Medical daily. Branch sulfaSALAzi 1-0 Yes [id number] 500mg Take 1 Univers ne 500 mg 3-10 tablet by ity o f tablet 00:00: mouth 2 (two) Medical times Branch daily. clotrimazol 2021-0 Yes [id number] Apply to Univers e 1 % 3-10 area(s) 2 ity of topical 00:00: (two) [place] cream 00 times Medical daily. Branch sulfaSALAzi 2020-0 Yes [id number] 500mg Take 1 [facility] ne 500 mg 3-10 tablet by ity o f tablet 00:00: mouth 2 (two) Medical times Branch daily. clotrimazol 1-0 Yes [id number] Apply to Univers e 1 % 3-10 area(s) 2 ity of topical 00:00: (two) [place] cream 00 times Medical daily. Branch sulfaSALAzi 1-0 Yes [id number] 500mg Take 1 [facility] ne 500 mg 3-10 tablet by ity o f tablet 00:00: mouth 2 (two) Medical times Branch daily. clotrimazol 1-0 Yes [id number] Apply to Univers e 1 % 3-10 area(s) 2 ity of topical 00:00: (two) [place] cream 00 times Medical daily. Branch sulfaSALAzi 2020-0 Yes [id number] 500mg Take 1 Univers ne 500 mg 3-10 tablet by ity o f tablet 00:00: mouth 2 (two) Medical times Branch daily. clotrimazol 1-0 Yes [id number] Apply to Univers e 1 % 3-10 area(s) 2 ity of topical 00:00: (two) [place] cream 00 times Medical daily. Branch sulfaSALAzi 2020-0 Yes [id number] 500mg Take 1 Univers ne 500 mg 3-10 tablet by ity o f tablet 00:00: mouth 2 (two) Medical times Branch daily. clotrimazol 2021-0 Yes [id number] Apply to Univers e 1 % 3-10 area(s) 2 ity of topical 00:00: (two) [place] cream 00 times Medical daily. Branch sulfaSALAzi 1-0 Yes [id number] 500mg Take 1 Univers ne 500 mg 3-10 tablet by ity o f tablet 00:00: mouth 2 (two) Medical times Branch daily. clotrimazol 2021-0 Yes [id number] Apply to Univers e 1 % 3-10 area(s) 2 ity of topical 00:00: (two) [place] cream 00 times Medical daily. Branch sulfaSALAzi 2020-0 Yes [id number] 500mg Take 1 [facility] ne 500 mg 3-10 tablet by ity o f tablet 00:00: mouth 2 [place] 00 (two) Medical times Branch daily. clotrimazol 2020-0 Yes [id number] Apply to Univers e 1 % 3-10 area(s) 2 ity of topical 00:00: (two) [place] cream 00 times Medical daily. Branch sulfaSALAzi 2020-0 Yes [id number] 500mg Take 1 [facility] ne 500 mg 3-10 tablet by ity o f tablet 00:00: mouth 2 (two) Medical times Branch daily. clotrimazol 2020-0 Yes [id number] Apply to Univers e 1 % 3-10 area(s) 2 ity of topical 00:00: (two) [place] cream 00 times Medical daily. Branch sulfaSALAzi 2020-0 Yes [id number] 500mg Take 1 [facility] ne 500 mg 3-10 tablet by ity o f tablet 00:00: mouth 2 (two) Medical times Branch daily. clotrimazol 2020-0 Yes [id number] Apply to Univers e 1 % 3-10 area(s) 2 ity of topical 00:00: (two) [place] cream 00 times Medical daily. Branch sulfaSALAzi 2020-0 Yes [id number] 500mg Take 1 Univers ne 500 mg 3-10 tablet by ity o f tablet 00:00: mouth 2 00 (two) Medical times Branch daily. clotrimazol 2020-0 Yes [id number] Apply to Univers e 1 % 3-10 area(s) 2 ity of topical 00:00: (two) [place] cream 00 times Medical daily. Branch sulfaSALAzi 2020-0 Yes [id number] 500mg Take 1 Univers ne 500 mg 3-10 tablet by ity o f tablet 00:00: mouth 2 [place] 00 (two) Medical times Branch daily. clotrimazol 2020-0 Yes [id number] Apply to Univers e 1 % 3-10 area(s) 2 ity of topical 00:00: (two) [place] cream 00 times Medical daily. Branch sulfaSALAzi 2020-0 Yes [id number] 500mg Take 1 Univers ne 500 mg 3-10 tablet by ity o f tablet 00:00: mouth 2 (two) Medical times Branch daily. clotrimazol 1-0 Yes [id number] Apply to Univers e 1 % 3-10 area(s) 2 ity of topical 00:00: (two) [place] cream 00 times Medical daily. Branch sulfaSALAzi 2020-0 Yes [id number] 500mg Take 1 Univers ne 500 mg 3-10 tablet by ity o f tablet 00:00: mouth 2 00 (two) Medical times Branch daily. clotrimazol 2020-0 Yes [id number] Apply to Univers e 1 % 3-10 area(s) 2 ity of topical 00:00: (two) [place] cream 00 times Medical daily. Branch sulfaSALAzi 2020-0 Yes [id number] 500mg Take 1 Univers ne 500 mg 3-10 tablet by ity o f tablet 00:00: mouth 2 (two) Medical times Branch daily. clotrimazol 2020-0 Yes [id number] Apply to Univers e 1 % 3-10 area(s) 2 ity of topical 00:00: (two) [place] cream 00 times Medical daily. Branch sulfaSALAzi 2020-0 Yes [id number] 500mg Take 1 Univers ne 500 mg 3-10 tablet by ity o f tablet 00:00: mouth 2 (two) Medical times Branch daily. clotrimazol 1-0 Yes [id number] Apply to Univers e 1 % 3-10 area(s) 2 ity of topical 00:00: (two) [place] cream 00 times Medical daily. Branch sulfaSALAzi 2020-0 Yes [id number] 500mg Take 1 Univers ne 500 mg 3-10 tablet by ity o f tablet 00:00: mouth 2 (two) Medical times Branch daily. clotrimazol 2021-0 Yes [id number] Apply to Univers e 1 % 3-10 area(s) 2 ity of topical 00:00: (two) [place] cream 00 times Medical daily. Branch sulfaSALAzi 2020-0 Yes [id number] 500mg Take 1 Univers ne 500 mg 3-10 tablet by ity o f tablet 00:00: mouth 2 (two) Medical times Branch daily. clotrimazol 2020-0 Yes [id number] Apply to Univers e 1 % 3-10 area(s) 2 ity of topical 00:00: (two) [place] cream 00 times Medical daily. Branch sulfaSALAzi 2020-0 Yes [id number] 500mg Take 1 Univers ne 500 mg 3-10 tablet by ity o f tablet 00:00: mouth 2 00 (two) Medical times Branch daily. clotrimazol 2020-0 Yes [id number] Apply to Univers e 1 % 3-10 area(s) 2 ity of topical 00:00: (two) [place] cream 00 times Medical daily. Branch sulfaSALAzi 2020-0 Yes [id number] 500mg Take 1 Univers ne 500 mg 3-10 tablet by ity o f tablet 00:00: mouth 2 00 (two) Medical times Branch daily. clotrimazol 2020-0 Yes [id number] Apply to Univers e 1 % 3-10 area(s) 2 ity of topical 00:00: (two) [place] cream 00 times Medical daily. Branch sulfaSALAzi 0 Yes [id number] 500mg Take 1 Univers ne 500 mg 3-10 tablet by ity o f tablet 00:00: mouth 2 (two) Medical times [place] daily. clotrimazol 2020-0 Yes [id number] Apply to Univers e 1 % 3-10 area(s) 2 ity of topical 00:00: (two) [place] cream 00 times Medical daily. [place] Vital Signs Vital Name Observation Time Observation Value Comments Source Systolic blood 2020-10-28 16:08:00 146 [facility] Diastolic blood 2020-10-28 16:08:00 89 [facility]Hg[facility] 2020-10-28 16:08:00 86 /min [facility] Respiratory rate 2020-10-28 16:08:00 16 /min [facility] Body height 2020-10-28 16:08:[address] [facility] Body weight 2020-10-28 16:08:[address] [facility] BMI 2020-10-28 16:08:00 25.77 kg/m2 Universi ty [facility] Oxygen saturation in 2020-10-28 16:08:00 97 /min University of Arterial blood by [facility] Pulse oximetry Branch Systolic blood 2020-10-15 21:11:00 157 mm[Hg] Univer sity of pressure [facility] Diastolic blood 2020-10-15 21:11:00 95 mm[Hg] Unive rsity of pressure [facility] Heart rate 2020-10-15 21:10:00 79 /min Universi ty [facility] Body temperature 2020-10-15 21:10:00 36.72 Meghan [facility] Respiratory rate 2020-10-15 21:10:00 18 /min [facility] Body height 2020-10-15 21:10:00 182.9 cm Universi ty [facility] Body weight 2020-10-15 21:10:00 85.412 [facility] BMI 2020-10-15 21:10:00 25.54 kg/m2 Universi ty [facility] Oxygen saturation in 2020-10-15 21:10:00 95 /min University of Arterial blood by [facility] Pulse oximetry Branch Procedures Procedure Date / Time Performing Clinician Source Performed PROTHROMBIN TIME / INR 2021-03-23 16:31:00 Amanda Corona [facility] EXTERNAL PROVIDER 2021-02-24 05:01:00 Doctor Unassigned, No [facility] Medical [place] ASSIGNMENT OF BENEFITS 2020-12-09 15:30:37 Doctor Unassigned, No [facility] CONSENT/REFUSAL FOR 2020-11-11 17:13:42 Doctor Unassigned, No [facility] DIAGNOSIS AND TREATMENT [facility] Encounters Start End Encounter Admission Attending Care Care Encounter Source Date/Time Date/Time Type Type Clinicians Facility Department ID 2021-03-24 2021-03-24 Outpatient William ROSENTHAL [facility] [id number] Univers 16:15:00 16:15:00 PAVAN bowers [facility] 2021-03-24 2021-03-24 Telephone Diana [facility] [id number] [facility] 00:00:00 00:00:00 Jen [facility] [id number] it y of [place] 4.2.7.2.686 David as Professio [phone] [facility] 044 [place] Office [facility] One 2021-03-24 2021-03-24 Telephone Marizol Mahajan [facility] [id number] Univers 00:00:00 00:00:00 Cam Ame[place] [id number] i ty [id number] [phone] Ak [facility]ical [facility] [address] [facility] 2021-03-23 2021-03-23 Reuse Technician Adrian, [facility] Lab Main [facility] 1.2.8 40.114 [id number] Univers 11:18:37 11:33:37 Visit Amanda Corona [id number] [id number] [phone] [facility] 353 [facility] 2021-03-23 2021-03-23 Outpatient R CJ [facility] [id number] Univers 11:15:00 11:15:00 AMANDA bowers o f [facility] 2021-03-06 2021-03-06 Telephone [facility] [id number] Univers 00:00:00 00:00:00 Amandadee Lindquist [id number] it[id number] [phone] [facility] 044 [facility] 2021-02-24 2021-02-24 Orders Doctor SHANA [id number] Univers 00:00:00 00:00:00 Only Unassigned, FRANK [id number] ity of [place] [facility] 4.2.7.2.686 David as [phone] [address] 2020-12-09 2020-12-09 Outpatient R ALF [facility] [id number] Univers 11:15:00 11:15:00 ROZ bowers [facility] 2020-12-09 2020-12-09 Reuse Technician Adrian, Adc Lab Main [place] 1.2.8 40.114 [id number] Univers 10:30:01 10:45:01 Visit Roz Milner [id number] [place]2.[place] [phone] Ak dical nal 353 [facility] 2020-12-09 2020-12-09 Orders Doctor SHANA 1.2.840.114 [id number] Univers 00:00:00 00:00:00 Only Unassigned, FRANK [id number] ity of [place] [facility] 4.2.7.2.686 David as [phone] [address] 2020-11-28 2020-11-28 Refill [facility] [id number] Univers 00:00:00 00:00:00 Amanda Lindquist [id number] [place] [phone] Ak dical nal 044 [facility] 2020-11-25 2020-11-25 [facility] [id number] Univers 10:45:00 10:45:00 AMANDA bowers o f [facility] 2020-11-25 2020-11-25 Reuse Technician Adrian, Adc Lab Main [facility] 1.2.8 40.114 [id number] Univers 10:11:41 10:26:41 Visit Amanda Corona [id number] [place]2.[place] [phone] Ak dical nal 353 [facility] 2020-11-25 2020-11-25 Telephone [facility] 1.2.840.114 [id number] Univers 00:00:00 00:00:00 Amanda [facility] [id number] i ty of [place] 4.2.7.2.686 David as Professio [phone] Ak [facility]ical [facility] 044 [place] Office Building One 2020-11-24 2020-11-24 Telephone [facility] 1.2.840.114 [id number] Univers 00:00:00 00:00:00 Amanda [place] [id number] it[place] [phone] [address] 2020-11-17 2020-11-17 Refill [facility] 1.2.840.114 [id number] Univers 00:00:00 00:00:00 Amanda [place] [id number] it[place]2.[place] [phone] [address] 2020-11-14 2020-11-14 Telephone [facility] 1.2.840.114 [id number] Univers 00:00:00 00:00:00 Amanda Health 350.1.13.10 i ty of [place] 4.2.7.2.686 David as Professio [phone] [address] 2020-11-14 2020-11-14 Telephone [facility] 1.2.840.114 [id number] Univers 00:00:00 00:00:00 Amanda Health 350.1.13.10 i ty of [place] 4.2.7.2.686 [place] as Professio [phone] [address] 2020-11-13 2020-11-13 Refill [facility] 1.2.840.114 [id number] Univers 00:00:00 00:00:00 Amanda [place] 350.1.13.10 ity [place].2.686 [place] [phone] [address] 2020-11-11 2020-11-11 Reuse Technician Lamin Campbell Lab Main [facility] 1.2.8 40.114 [id number] [facility] 12:14:55 12:29:55 Visit Amanda Corona 350.1.13.10 it[place] [phone] [facility] 353 [facility] 2020-11-11 2020-11-11 [facility] [id number] Univers 12:15:00 12:15:00 AMANDA ity o f [facility] 2020-11-11 2020-11-11 Orders Doctor SHANA 1.2.840.114 [id number] Univers 00:00:00 00:00:00 Only Unassigned, FRANK 350.1.13.10 ity of [place] [facility] 4.2.7.2.686 David as [phone] [address] 2020-11-06 2020-11-06 Telephone [facility] 1.2.840.114 [id number] Univers 00:00:00 00:00:00 Amanda [facility] 350.1.13.10 i ty of [place] 4.2.7.2.686 David as Professio [phone] [address] Office [facility] One 2020-11-05 2020-11-05 Telephone [facility] 1.2.840.114 [id number] Univers 00:00:00 00:00:00 Amanda [place] 350.1.13.10 it[place] [phone] [address] 2020-11-04 2020-11-04 Outpatient [facility] [id number] Univers 09:15:00 09:15:00 AMANDA daedee o [facility] 2020-11-04 2020-11-04 Reuse Technician 2, Adc Lab [facility] 1.2.840.114 [id number] Univers 08:30:16 08:45:16 Visit Amanda Corona 350.1.13.10 [place]2.[place] [phone] [address] 2020-10-28 2020-10-28 Reuse Technician Lab, Adc Fam Pob I [facility] 1.2. 840.114 [id number] Univers 11:35:50 11:55:50 Visit Amanda Corona 350.1.13.10 ity of [place] 4.2.7.2.686 David as Professio [phone] Ak dical nal 044 [facility] One 2020-10-28 2020-10-28 Office [facility] 1.2.840.114 [id number] Univers 10:58:41 11:27:00 Visit Amanda Dutta 350.1.13.10 i ty of [place] 4.2.7.2.686 David as Professio [phone] Ak dical nal 044 [place] Office [facility] One 2020-10-28 2020-10-28 Outpatient R [facility] [id number] Univers 11:00:00 11:00:00 AMANDA trujillo [facility] 2020-10-28 2020-10-28 Refill [facility] 1.2.840.114 [id number] Univers 00:00:00 00:00:00 [facility] 350.1.13.10 i ty of [place] 4.2.7.2.686 David as Professio [phone] Ak dical nal 044 [facility] One 2020-10-20 2020-10-20 Telephone [facility] 1.2.840.114 [id number] Univers 00:00:00 00:00:00 Amanda Lindquist 350.1.13.10 [place] [phone] Ak dical nal 044 [facility] 2020-10-16 2020-10-16 Reuse Technician 2, Adc Lab [facility] 1.2.840.114 [id number] Univers 08:14:01 08:29:01 Visit Amanda Corona 350.1.13.10 [place]2.[place] [phone] Ak dical nal 353 [facility] 2020-10-16 2020-10-16 Outpatient R [facility] [id number] Univers 08:00:00 08:00:00 AMANDA ity o [facility] 2020-10-16 2020-10-16 Telephone [facility] 1.2.840.114 [id number] [facility] 00:00:00 00:00:00 Amanda [facility] [id number] i jessica pollack [place] 4.2.7.2.686 David as Professio [phone] [address] Office Building One 2020-10-15 2020-10-15 Outpatient R [facility] [id number] [facility] 15:00:00 15:54:04 AMANDA ity o f [facility] 2020-10-15 2020-10-15 Office [facility] 1.2.840.114 [id number] [facility] 14:45:19 15:54:04 Visit Amanda [place]1.13.10 [place] [phone] [address] Results Test Description Test Time Test [...] indications. Lab Interpretation (test code Abnormal = 99672-2) [facility]
[2022-12-05 09:58] LABS: Absolute Lymphocytes (CBC) 0.5 K/uL (0.7-4.9); Hematocrit 37.5 % (39.6-49.0); Lymphocytes % 6.2 % (15.3-44.8); MCV 86.9 fL (80-100); MPV 7.4 fL (7.6-11.3); RBC Red Blood Cell Count 4.32 M/uL (4.33-5.43)
[2022-12-05 10:04] LABS: Protime INR 3.42
[2022-12-05 10:16] LABS: Albumin 2.1 g/dL (3.4-5.0); Bilirubin Total 0.3 mg/dL (0.2-1.0); Potassium 3.7 mEq/L (3.5-5.1); Protein, Total 7.1 g/dL (6.4-8.2)
[2022-12-05] MEDS ORDERED: MAGNES/ALUMIN/SIMET 30ML UCUP ONE (10:39)
[2022-12-05] MEDS ORDERED: LIDOCAINE VISCOUS 2% SOLN 15 ML UDC ONE (10:39)
--- NOTE | 2022-12-05 11:14 | RAD REPORT ---
EXAM DESCRIPTION: CTAbdomen Pelvis W Contrast - 12/05/2022 10:59 am CLINICAL HISTORY: ABD PAIN COMPARISON: Chest Abdomen Pelvis W Cont dated 05/16/2021 TECHNIQUE: CT of the abdomen and pelvis was performed. All CT scans are performed using dose optimization technique as appropriate and may include automated exposure control or mA/KV adjustment according to patient size. FINDINGS: Lower chest: Moderate hiatal hernia. Coronary artery calcifications. Liver: Mildly nodular liver configuration. Probable hepatic steatosis. Biliary: No biliary ductal dilatation. Stomach: No significant focal abnormality. Duodenum: No significant focal abnormality. Pancreas: No significant abnormality. Spleen: Splenomegaly. Adrenal: No suspicious lesions. Kidney/ureter: No hydronephrosis. No renal calculi. Left upper pole renal cyst. Retroperitoneum: No retroperitoneal adenopathy. Vascular: 2.4 cm left common iliac artery aneurysm is unchanged since 05/16/2021. Atherosclerosis Bowel: Diffuse colonic wall thickening with portions having hyperenhancement.. Peritoneum: Moderate ascites. Some fluid present within the right inguinal canal. Bladder: Nonspecific circumferential bladder wall thickening. Reproductive: No adnexal masses. Bones: No acute fracture. Multilevel degenerative changes are present in the spine. Other: n/a IMPRESSION: Suspect cirrhosis with portal hypertension including splenomegaly and interval developme nt of ascites. The portal vein is patent. Diffuse colonic wall thickening which could be secondary to portal colopathy.
[2022-12-05 11:31] LABS: White Blood Cell Scan OK (OK)
[2022-12-05 11:32] LABS: Anisocytosis 1+; Blood Morphology Comment NOTED (NOT SEEN); Platelet Estimate ADEQ; Poikilocytosis SLIGHT
--- NOTE | 2022-12-05 11:41 | ER ---
Nurse's Notes [facility] Name: Raul Wilson Age: 67 yrs Sex: Male : 1955 Arrival Date: 12/05/2022 Time: 09:07 Bed 20 Private MD: Diagnosis: Abdominal pain, Generalized;Alcoholic cirrhosis of liver Presentation: 12/05 09:26 Chief complaint: Patient states: diarrhea X 1 week, black stool X 10-12 days, stopped iw today , now he has gas/bloating. Coronavirus screen: At this time, the client does not indicate any symptoms associated with coronavirus-19. Ebola Screen: Patient negative for fever greater than or equal to 101.5 degrees Fahrenheit, and additional compatible Ebola Virus Disease symptoms Patient denies exposure to infectious person. Patient denies travel to an Ebola-affected area in the 21 days before illness onset. No symptoms or risks identified at this time. Initial Sepsis Screen: Does the patient meet any 2 criteria? No. Patient's initial sepsis screen is negative. Does the patient have a suspected source of infection? No. Patient's initial sepsis screen is negative. Risk Assessment: Do you want to hurt yourself or someone else? Patient reports no desire to harm self or others. Onset of symptoms was November 25, 2022. 09:26 Method Of Arrival: Wheelchair iw 09:26 Acuity: SAMMI 3 iw Historical: - Allergies: : No Known Allergies; iw - Home Meds: : aspirin 81 mg Oral tab 81 mg daily [Active]; atorvastatin 40 mg Oral tab 1 tab once iw daily [Active]; B12 Active Oral daily [Active]; cyclobenzaprine 10 mg Oral tab as needed [Active]; levothyroxine 150 mcg cap 1 cap once daily [Active]; methotrexate sodium 15 mg Oral tab 1 tab once wkly [Active]; metoprolol tartrate 50 mg Oral tab 1 tab 2 times per day [Active]; prednisone 7.5 mg Oral tab once daily [Active]; prednisone 5 mg Oral tab 1.5 tab once daily [Active]; warfarin 6 mg oral tablet [Active]; sulfasalazine 500 mg Oral tab 1 tab twice daily [Active]; - PMHx: 09:28 COPD; Thyroid problem; DVT to alma delia legs; Hypertensive disorder; Hypercholesterolemia; RA;iw - PSHx: 09:28 neck; iw - Immunization history:: Client reports receiving the 2nd dose of the Covid vaccine. - Social history:: Smoking status: Patient/guardian denies using tobacco, the patient reports quitting approximately 6 years ago. Screenin:[facility] ED Fall Risk Assessment (Adult) History of falling in the last 3 months, kc6 including since admission No falls in past 3 months (0 pts) Confusion or Disorientation No (0 pts) Intoxicated or Sedated No (0 pts) Impaired Gait No (0 pts) Mobility Assist Device Used No (0 pt) Altered Elimination No (0 pt) Score/Fall Risk Level 0 - 2 = Low Risk Oriented to surroundings, Maintained a safe environment, Educated pt \T\ family on fall prevention, incl call for assistance when getting out of bed, Assessed \T\ reinforced patient's understanding of fall precautions, Hourly rounding (assess needs \T\ fall precautionary measures) done. Abuse screen: Denies threats or abuse. Denies injuries from another. Nutritional screening: No deficits noted. Tuberculosis screening: No symptoms or risk factors identified. Assessment: 09:51 General: Appears in no apparent distress. comfortable, Behavior is calm, cooperative, kc6 appropriate for age. Pain: Denies pain. Neuro: Hernadez Agitation-Sedation Scale (RASS): 0 - Alert and Calm Level of Consciousness is awake, alert, obeys commands, Oriented to person, place, time, situation, Appropriate for age. Cardiovascular: Capillary refill < 3 seconds. Respiratory: Airway is patent Trachea midline Respiratory effort is even, unlabored, Respiratory pattern is regular, symmetrical. GI: Abdomen is flat, non-distended, Bowel sounds present X 4 quads. Abd is soft and non tender X 4 quads. Reports diarrhea, bloody stool, Patient currently denies nausea, pain, vomiting. : No signs and/or symptoms were reported regarding the genitourinary system. EENT: No signs and/or symptoms were reported regarding the EENT system. Derm: No signs and/or symptoms reported regarding the dermatologic system. Skin is intact, Skin is pink, warm \T\ dry. Musculoskeletal: No signs and/or symptoms reported regarding the musculoskeletal system. Circulation, motion, and sensation intact. Capillary refill < 3 seconds, Range of motion: intact in all extremities. 10:51 Reassessment: Patient appears in no apparent distress at this time. No changes from kc6 previously documented assessment. Patient and/or family updated on plan of care and expected duration. Pain level reassessed. Patient is alert, oriented x 3, equal unlabored respirations, skin warm/dry/pink. 11:51 Reassessment: Patient appears in no apparent distress at this time. No changes from kc6 previously documented assessment. Patient and/or family updated on plan of care and expected duration. Pain level reassessed. Patient is alert, oriented x 3, equal unlabored respirations, skin warm/dry/pink. Vital Signs: 09:26 BP 145 / 87; Pulse 87; Resp 16; Temp 97.9(TE); Pulse Ox 98% on R/A; Weight 82.55 kg; iw Height 6 ft. 0 in. ; 09:51 BP 151 / 90; Pulse 83; Resp 13 S; Pulse Ox 95% on R/A; kc6 10:51 BP 133 / 81; Pulse 83; Resp 15 S; Pulse Ox 95% on R/A; kc6 09:26 Body Mass Index 24.68 (82.55 kg, 182.88 cm) iw ED Course: 09:11 Patient arrived in ED. am2 09:11 Will Noe MD is Attending Physician. [email or web address] 09:28 Triage completed. iw 09:30 Arm band placed on. iw 09:50 Chelle Alvarado, ALMA is Primary Nurse. kc6 09:51 Patient has correct armband on for positive identification. Placed in gown. Bed in low kc6 position. Call light in reach. Side rails up X 1. Adult w/ patient. 09:51 Inserted saline lock: 20 gauge in right antecubital area, using aseptic technique. kc6 Blood collected. 11:01 CT Abd/Pelvis - IV Contrast Only In Process Unspecified. EDMS 11:51 No provider procedures requiring assistance completed. IV discontinued, intact, kc6 bleeding controlled, No redness/swelling at site. Pressure dressing applied. Administered Medications: 10:35 Drug: GI Cocktail without - (Maalox PO Suspension 30 ml, Lidocaine Mucous kc6 Membrane Liquid 2 % 15 ml) Route: PO; 11:51 Follow up: Response: No adverse reaction kc6 Medication: 11:51 VIS not applicable for this client. kc6 Outcome: 11:40 Discharge ordered by . [email or web address] 11:51 Discharged to home via wheelchair, with significant other. kc6 11:51 Condition: improved 11:51 Discharge instructions given to patient, Instructed on discharge instructions, follow up and referral plans. Demonstrated understanding of instructions, follow-up care. 11:51 Patient left the ED. kc6 Signatures: Dispatcher [employer] EDMel Palma RN RN iw Jesi Humphries Jose, MD MD [email or web address] Chelle Alvarado RN RN kc6 Corrections: (The following items were deleted from the chart) 09:42 09:26 BP 145 / 87; Pulse 87bpm; Resp 16bpm; Pulse Ox 98% RA; 82.55 kg; Height 6 ft. 0 iw in.; BMI: 24.6; iw
--- NOTE | 2022-12-05 11:42 | EDPHYS ---
Physician Documentation [facility] Name: Raul Wilson Age: 67 yrs Sex: Male : 1955 Arrival Date: 12/05/2022 Time: 09:07 Bed 20 Private MD: ED Physician Will Noe HPI: 12/05 09:25 Patient is a 67-year-old male that states that over the last 2 days he has had black jr11 tarry stools however his stool today is more liquidy and brown. Patient is on Coumadin for bilateral DVTs, he takes 2.5 mg daily. Patient also complains of diffuse abdominal pain, mild, no modifying factors. Denies any dizziness, syncope, he is a daily drinker, drinks beer. Denies history of cirrhosis or formal diagnosis of cirrhosis. Primary care doctor sent him here for further treatment. No prior endoscopy or colonoscopy. Historical: - Allergies: : No Known Allergies; iw - Home Meds: : aspirin 81 mg Oral tab 81 mg daily [Active]; atorvastatin 40 mg Oral tab 1 tab once iw daily [Active]; B12 Active Oral daily [Active]; cyclobenzaprine 10 mg Oral tab as needed [Active]; levothyroxine 150 mcg cap 1 cap once daily [Active]; methotrexate sodium 15 mg Oral tab 1 tab once wkly [Active]; metoprolol tartrate 50 mg Oral tab 1 tab 2 times per day [Active]; prednisone 7.5 mg Oral tab once daily [Active]; prednisone 5 mg Oral tab 1.5 tab once daily [Active]; warfarin 6 mg oral tablet [Active]; sulfasalazine 500 mg Oral tab 1 tab twice daily [Active]; - PMHx: : COPD; Thyroid problem; DVT to alma delia legs; Hypertensive disorder; Hypercholesterolemia; RA;iw - PSHx: : neck; iw - Immunization history:: Client reports receiving the 2nd dose of the Covid vaccine. - Social history:: Smoking status: Patient/guardian denies using tobacco, the patient reports quitting approximately 6 years ago. ROS: 09:25 All other systems are negative. jr11 Exam: 09:25 Constitutional: This is a well developed, well nourished patient who is awake, alert, jr11 and in no acute distress. Head/Face: Normocephalic, atraumatic. Eyes: Extra-ocular motions intact. Lids and lashes normal. Conjunctiva and sclera are non-icteric and not injected. Cornea within normal limits. Periorbital areas with no swelling, redness, or edema. ENT: Nares patent. No nasal discharge, no septal abnormalities noted. Oropharynx with no redness, swelling, or masses, exudates, or evidence of obstruction, uvula midline. Mucous membranes moist. Neck: Trachea midline, no thyromegaly or masses palpated, and no cervical lymphadenopathy. Supple, full range of motion without nuchal rigidity, or vertebral point tenderness. No Meningismus. Chest/axilla: Normal chest wall appearance and motion. Nontender with no deformity. No lesions are appreciated. Cardiovascular: Regular rate and rhythm with a normal S1 and S2. No gallops, murmurs, or rubs. Normal PMI, no JVD. No pulse deficits. Respiratory: Lungs have equal breath sounds bilaterally, clear to auscultation and percussion. No rales, rhonchi or wheezes noted. No increased work of breathing, no retractions or nasal flaring. Abdomen/GI: diffuse abd pain, no peritonitis Vital Signs: 09:26 BP 145 / 87; Pulse 87; Resp 16; Temp 97.9(TE); Pulse Ox 98% on R/A; Weight 82.55 kg; iw Height 6 ft. 0 in. ; 09:51 BP 151 / 90; Pulse 83; Resp 13 S; Pulse Ox 95% on R/A; kc6 10:51 BP 133 / 81; Pulse 83; Resp 15 S; Pulse Ox 95% on R/A; kc6 09:26 Body Mass Index 24.68 (82.55 kg, 182.88 cm) iw MDM: 09:23 Patient medically screened. jr11 09:25 Differential diagnosis: gastritis, GI Bleed, non-specific abd pain, Peptic Ulcer jr11 Disease. Data reviewed: vital signs, nurses notes, EMS record. 11:39 ED course: No acute abnormality on CT H\T\H normal, likely tarry stool is due to his iron jr11 he takes. 12/05 09:24 Order name: CBC with Diff; Complete Time: 11:38 jr11 12/05 09:24 Order name: CMP; Complete Time: 10:29 jr11 12/05 09:24 Order name: Lipase; Complete Time: 10:29 jr11 12/05 09:24 Order name: PT-INR; Complete Time: 10:15 [facility] 12/05 10:11 Order name: CBC Smear Scan; Complete Time: 11:38 [facility] 12/05 10:30 Order name: CT Abd/Pelvis - IV Contrast Only; Complete Time: 11:38 jr11 12/05 09:24 Order name: IV Saline Lock; Complete Time: 09:51 [facility] 12/05 09:24 Order name: Labs collected and sent; Complete Time: 09:51 [facility] Administered Medications: 10:35 Drug: GI Cocktail without - (Maalox PO Suspension 30 ml, Lidocaine Mucous kc6 Membrane Liquid 2 % 15 ml) Route: PO; 11:51 Follow up: Response: No adverse reaction kc6 Disposition Summary: 12/05/22 11:40 Discharge Ordered Location: Home [facility] Condition: Fair jr11 Diagnosis - Abdominal pain, Generalized jr11 - Alcoholic cirrhosis of liver jr11 Followup: jr - With: Private Physician - When: 2 - 3 days - Reason: Re-evaluation by your physician Discharge Instructions: - Discharge Summary Sheet jr11 - Abdominal Pain, Adult jr11 - Cirrhosis jr11 Forms: - Medication Reconciliation Form jr11 - Thank You Letter jr11 - Antibiotic Education jr11 - Prescription Opioid Use [facility] Signatures: Dispatcher [employer] Mel Hutchins, RN Will Murillo MD MD jr11 Chelle Alvarado RN RN kc6
[2022-12-05 11:59] VITALS: TEMP 97.9
[2022-12-05 12:00] VITALS: O2SAT 95
[2022-12-05 12:01] VITALS: BP 133/81
== END 2022-12-05 11:51 | disposition home or self-care (01) ==
LOC: ER 09:07
DX: K70.30 Alcoholic cirrhosis of liver without ascites (principal); I10 Essential (primary) hypertension; J44.9 Chronic obstructive pulmonary disease, unspecified; Z86.718 Personal history of other venous thrombosis and embolism; Z79.01 Long term (current) use of anticoagulants; Z79.82 Long term (current) use of aspirin
CPT/HCPCS: 85025; 36415; 85610; 83690; 80053; 74177; 99284; Q9967